=== PATIENT | male | born 1985 | race Caucasian/White ===

== ENCOUNTER → 2019-03-12 15:18 | Outpatient (CLI) | payer BC, SELFPAY ==
--- NOTE | 2019-03-12 15:32 | XR_ITS ---
XR chest 2V HISTORY: ITS.REASON: cough ORDERING PHYSICIAN: Antonio Pagan APRN PATIENT AGE: 33 years COMPARISON: 09/28/2018 FINDINGS: The cardiomediastinal silhouette and pulmonary vascularity are within normal limits. The lungs are clear without infiltrates, suspicious nodules, or pleural effusions. Surgical clips are present along the lower chest anteriorly No acute bony abnormalities. IMPRESSION: No change with no acute finding
[2019-03-12 16:24] LABS: Basophils % 0.3 % (0.1-2.0); Eosinophils # 0.2 K/mm3 (0.0-0.4); Eosinophils % 2.4 % (0.1-12.0); Hematocrit 43.8 % (42.0-52.0); Hemoglobin 15.2 g/dL (14.1-18.0); Lymphocytes # 1.7 K/mm3 (0.7-4.5); Lymphocytes % 25.2 % (10-50); Mean Corpuscular HGB Conc 34.8 g/dL (31.8-35.4); Mean Corpuscular Hemoglobin 31.4 pg (27.0-31.2); Mean Corpuscular Volume 90.2 fl (80-94); Mean Platelet Volume 8.1 fl (7.4-10.4); Monocytes # 0.3 K/mm3 (0.1-1.0); Monocytes % 4.7 % (1.7-9.3); Neutrophils # 4.6 K/mm3 (1.8-7.8); Neutrophils % 67.4 % (37.0-80.0); Platelet Count 196 K/mm3 (142-424); Red Blood Count 4.86 M/mm3 (4.60-6.20); White Blood Count 6.8 K/mm3 (4.8-10.8)
[2019-03-12 16:28] LABS: Activated Partial Thrombo Time 26.2 seconds (23.6-34.0); INR 1.01 (0.9-1.1); Prothrombin Time 10.5 seconds (9.4-11.8)
[2019-03-12 17:45] LABS: Alanine Aminotransferase 95 U/L (12-78); Albumin Level 4.2 gm/dL (3.4-5.0); Albumin/Globulin Ratio 1.1 (1.1-1.8); Alkaline Phosphatase 93 U/L (46-116); Anion Gap 12.8 mEq/L (5-15); Aspartate Amino Transferase 38 U/L (15-37); Bilirubin,Total 0.5 mg/dL (0.2-1.0); Blood Urea Nitrogen 15 mg/dL (7-18); Calcium 8.8 mg/dL (8.5-10.1); Carbon Dioxide 27 mmol/L (21.0-32.0); Chloride 104 mmol/L (98-107); Creatinine,Serum 1.05 mg/dL (0.70-1.30); Estimated Glomerular Filt Rate 80 ml/min (>60); GFR (African American) 97 ML/MIN (>60); Globulin 3.7 gm/dl (1.3-3.2); Glucose 99 mg/dL (74-106); Potassium 3.8 mmoL/L (3.5-5.1); Sodium 140 mmol/L (136-145); T4 (Thyroxine) 8.4 ug/dl (4.7-13.3); Thyroid Stimulating Hormone 1.34 uIU/ml (0.358-3.740); Total Protein,Serum 7.9 gm/dL (6.4-8.2)
[2019-03-15 07:47] LABS: HIV Screen 4th Generation wRfx Non Reactive (Non Reactive)
[2019-03-16 05:08] LABS: Hep A Ab, IgM Negative (Negative); Hepatitis B Core Antibody IgM Negative (Negative)
[2019-03-16 06:21] LABS: Hepatitis B Surface Antigen Positive (Negative); Hepatitis C Antibody >11.0 s/co ratio (0.0-0.9)
[2019-03-18 12:17] LABS: HCV Genotype Charge YES; Hepatitis C Genotype 3 (.)
== END ==
PROVIDERS: Visit Provider Nurse Practitioner Family
DX: R05 Cough (principal); R13.10 Dysphagia, unspecified; Z78.9 Other specified health status
CPT/HCPCS: 36415; 71046; 80053; 80074; 84436; 84443; 85025; 85610; 85730; 86703; 87522; 87902; G0432

== ENCOUNTER → 2019-03-17 14:12 | Outpatient (CLI) | payer BC, SELFPAY | PROVIDERS: PCP Physician Assistant; Visit Provider Nurse Practitioner Family | DX: R05 Cough (principal); J45.909 Unspecified asthma, uncomplicated; Z72.0 Tobacco use | CPT/HCPCS: 94060 ==

== ENCOUNTER → 2019-04-29 11:53 | Outpatient (CLI) | payer BC, SELFPAY ==
--- NOTE | 2019-04-29 12:14 | XR_ITS ---
XR chest 2V HISTORY: ITS.REASON: pain with insp ORDERING PHYSICIAN: Silvestre Arana MD PATIENT AGE: 34 years COMPARISON: 03/12/2019. FINDINGS: The cardiomediastinal silhouette and pulmonary vascularity are within normal limits. The lungs are clear without infiltrates, suspicious nodules, or pleural effusions. Again seen are the small metal clips overlying the inferior left hemithorax area. These could be related to extrathoracic soft tissues although correlate with history and clinical exam. No acute bony abnormalities. IMPRESSION: No change and no definite acute process.
== END ==
PROVIDERS: PCP Emergency Medicine; Visit Provider Emergency Medicine
DX: R07.1 Chest pain on breathing (principal)
CPT/HCPCS: 71046

== ENCOUNTER → 2019-06-21 09:34 | Outpatient (CLI) | payer BC, SELFPAY ==
[2019-06-21 10:09] LABS: Basophils % 0.5 % (0.1-2.0); Eosinophils # 0.1 K/mm3 (0.0-0.4); Eosinophils % 1.1 % (0.1-12.0); Hemoglobin 15.9 g/dL (14.1-18.0); Lymphocytes # 1.4 K/mm3 (0.7-4.5); Lymphocytes % 22.6 % (10-50); Mean Corpuscular HGB Conc 33.9 g/dL (31.8-35.4); Mean Corpuscular Hemoglobin 30.8 pg (27.0-31.2); Mean Corpuscular Volume 90.9 fl (80-94); Mean Platelet Volume 8.2 fl (7.4-10.4); Monocytes # 0.3 K/mm3 (0.1-1.0); Monocytes % 5.2 % (1.7-9.3); Neutrophils # 4.3 K/mm3 (1.8-7.8); Neutrophils % 70.6 % (37.0-80.0); Platelet Count 199 K/mm3 (142-424); Red Blood Count 5.18 M/mm3 (4.60-6.20); Red Cell Distribution Width 13.2 % (11.5-17.5); White Blood Count 6.1 K/mm3 (4.8-10.8)
[2019-06-21 13:46] LABS: Alanine Aminotransferase 65 U/L (12-78); Albumin Level 4.1 gm/dL (3.4-5.0); Albumin/Globulin Ratio 1.2 (1.1-1.8); Alkaline Phosphatase 85 U/L (46-116); Anion Gap 15.6 mEq/L (5-15); Aspartate Amino Transferase 32 U/L (15-37); Bilirubin,Total 0.6 mg/dL (0.2-1.0); Blood Urea Nitrogen 10 mg/dL (7-18); Calcium 9.4 mg/dL (8.5-10.1); Carbon Dioxide 27 mmol/L (21.0-32.0); Chloride 107 mmol/L (98-107); Creatinine,Serum 1.11 mg/dL (0.70-1.30); Estimated Glomerular Filt Rate 75 ml/min (>60); GFR (African American) 91 ML/MIN (>60); Globulin 3.5 gm/dl (1.3-3.2); Glucose 87 mg/dL (74-106); Potassium 4.6 mmoL/L (3.5-5.1); Sodium 145 mmol/L (136-145); Total Protein,Serum 7.6 gm/dL (6.4-8.2)
== END ==
PROVIDERS: Visit Provider Nurse Practitioner Family
DX: B18.2 Chronic viral hepatitis C (principal); Z79.899 Other long term (current) drug therapy
CPT/HCPCS: 36415; 80053; 85025; 87522

== ENCOUNTER → 2019-07-13 10:27 | Outpatient (POV) | payer BC, SELFPAY ==
[2019-07-13 12:49] LABS: Basophils % 0.4 % (0.1-2.0); Eosinophils # 0.1 K/mm3 (0.0-0.4); Eosinophils % 2.3 % (0.1-12.0); Hematocrit 46.3 % (42.0-52.0); Hemoglobin 16.2 g/dL (14.1-18.0); Lymphocytes # 1.5 K/mm3 (0.7-4.5); Lymphocytes % 25.2 % (10-50); Mean Corpuscular HGB Conc 34.9 g/dL (31.8-35.4); Mean Corpuscular Hemoglobin 31.2 pg (27.0-31.2); Mean Corpuscular Volume 89.4 fl (80-94); Mean Platelet Volume 7.6 fl (7.4-10.4); Monocytes # 0.4 K/mm3 (0.1-1.0); Monocytes % 6.8 % (1.7-9.3); Neutrophils # 3.9 K/mm3 (1.8-7.8); Neutrophils % 65.3 % (37.0-80.0); Platelet Count 190 K/mm3 (142-424); Red Blood Count 5.18 M/mm3 (4.60-6.20); Red Cell Distribution Width 12.9 % (11.5-17.5)
[2019-07-16 06:28] LABS: Immunoglobulin E, Total 17 IU/mL (6-495)
== END ==
PROVIDERS: Nurse Practitioner Family; Visit Provider Internal Medicine
DX: J45.40 Moderate persistent asthma, uncomplicated (principal); R06.02 Shortness of breath
CPT/HCPCS: 36415; 82785; 85025; 86003

== ENCOUNTER → 2019-07-21 08:43 | Outpatient (CLI) | payer BC, SELFPAY ==
--- NOTE | 2019-07-21 08:52 | FL_ITS ---
PROCEDURE: FL BARIUM SWALLOW CLINICAL INDICATION: DYSPHAGIA COMPARISON: No exams were available for comparison TECHNIQUE: In the upright position the patient was observed to swallow barium in both the AP and lateral view. The cervical esophagus was examined under fluoroscopy with images obtained. The patient was then placed prone in the right anterior oblique position and was observed to swallow barium with Valsalva technique . FLUOROSCOPY TIME: 54 seconds FINDINGS: There was no evidence of aspiration. There was normal peristalsis. No filling defects or mucosal abnormalities. No masses or strictures. No hiatal hernia parent IMPRESSION: Negative barium swallow. Dictated by: Jose Arenas MD 07/21/2019 10:43 Electronically signed by Jose Arenas MD in [place] 07/23/2019 12:42
== END ==
PROVIDERS: PCP Emergency Medicine; Visit Provider Internal Medicine
DX: R13.10 Dysphagia, unspecified (principal)
CPT/HCPCS: 74220

== ENCOUNTER → 2019-08-03 11:01 | Outpatient (CLI) | payer BC, SELFPAY ==
[2019-08-03 11:25] LABS: Basophils % 0.5 % (0.1-2.0); Eosinophils # 0.1 K/mm3 (0.0-0.4); Eosinophils % 1.9 % (0.1-12.0); Hematocrit 47.5 % (42.0-52.0); Hemoglobin 15.4 g/dL (14.1-18.0); Lymphocytes # 1.7 K/mm3 (0.7-4.5); Lymphocytes % 23.6 % (10-50); Mean Corpuscular HGB Conc 32.3 g/dL (31.8-35.4); Mean Corpuscular Hemoglobin 29.6 pg (27.0-31.2); Mean Corpuscular Volume 91.4 fl (80-94); Monocytes # 0.5 K/mm3 (0.1-1.0); Monocytes % 6.3 % (1.7-9.3); Neutrophils # 4.9 K/mm3 (1.8-7.8); Neutrophils % 67.7 % (37.0-80.0); Platelet Count 215 K/mm3 (142-424); Red Cell Distribution Width 13.8 % (11.5-17.5); White Blood Count 7.2 K/mm3 (4.8-10.8)
[2019-08-03 13:24] LABS: Alanine Aminotransferase 59 U/L (12-78); Albumin Level 4.1 gm/dL (3.4-5.0); Albumin/Globulin Ratio 1.1 (1.1-1.8); Alkaline Phosphatase 88 U/L (46-116); Anion Gap 12.2 mEq/L (5-15); Aspartate Amino Transferase 31 U/L (15-37); Bilirubin,Total 0.7 mg/dL (0.2-1.0); Blood Urea Nitrogen 10 mg/dL (7-18); Calcium 9.2 mg/dL (8.5-10.1); Carbon Dioxide 28 mmol/L (21.0-32.0); Chloride 104 mmol/L (98-107); Creatinine,Serum 1.11 mg/dL (0.70-1.30); Estimated Glomerular Filt Rate 75 ml/min (>60); GFR (African American) 91 ML/MIN (>60); Globulin 3.6 gm/dl (1.3-3.2); Glucose 92 mg/dL (74-106); Potassium 4.2 mmoL/L (3.5-5.1); Sodium 140 mmol/L (136-145); Total Protein,Serum 7.7 gm/dL (6.4-8.2)
[2019-08-07 08:13] LABS: D001-IgE D pteronyssinus <0.10 kU/L (Class 0); D002-IgE D farinae <0.10 kU/L (Class 0); E001-IgE Cat Dander <0.10 kU/L (Class 0); E005-IgE Dog Dander <0.10 kU/L (Class 0); G002-IgE Bermuda Grass <0.10 kU/L (Class 0); G006-IgE Timothy Grass <0.10 kU/L (Class 0); I006-IgE Cockroach, German <0.10 kU/L (Class 0); Immunoglobulin E, Total 15 IU/mL (6-495); M001-IgE Penicillium chrysogen <0.10 kU/L (Class 0); M002-IgE Cladosporium herbarum <0.10 kU/L (Class 0); M003-IgE Aspergillus fumigatus <0.10 kU/L (Class 0); M006-IgE Alternaria alternata <0.10 kU/L (Class 0); T001-IgE Maple/Box Elder <0.10 kU/L (Class 0); T003-IgE Common Silver Birch <0.10 kU/L (Class 0); T006-IgE Cedar, Mountain <0.10 kU/L (Class 0); T007-IgE Oak, White <0.10 kU/L (Class 0); T008-IgE Elm, American <0.10 kU/L (Class 0); T010-IgE Walnut <0.10 kU/L (Class 0); T011-IgE Maple Leaf Sycamore <0.10 kU/L (Class 0); T014-IgE Cottonwood <0.10 kU/L (Class 0); T015-IgE Ash, White <0.10 kU/L (Class 0); T022-IgE Pecan, Hickory <0.10 kU/L (Class 0); T070-IgE White Mulberry <0.10 kU/L (Class 0); W001-IgE Ragweed, Short <0.10 kU/L (Class 0); W011-IgE Thistle, Russian <0.10 kU/L (Class 0); W014-IgE Pigweed, Common <0.10 kU/L (Class 0); W018-IgE Sheep Sorrel <0.10 kU/L (Class 0)
[2019-08-07 12:26] LABS: E072-IgE Mouse Urine <0.10 kU/L (Class 0)
== END ==
PROVIDERS: Nurse Practitioner Family; Visit Provider Nurse Practitioner Family
DX: B18.2 Chronic viral hepatitis C (principal); J45.40 Moderate persistent asthma, uncomplicated; R06.02 Shortness of breath; Z79.899 Other long term (current) drug therapy
CPT/HCPCS: 36415; 80053; 82785; 85025; 86003

== ENCOUNTER → 2019-09-01 10:11 | Outpatient (CLI) | payer BC, SELFPAY ==
[2019-09-01 10:30] LABS: Basophils % 0.5 % (0.1-2.0); Eosinophils # 0.1 K/mm3 (0.0-0.4); Eosinophils % 1.5 % (0.1-12.0); Hematocrit 49.3 % (42.0-52.0); Hemoglobin 16.7 g/dL (14.1-18.0); Lymphocytes # 1.2 K/mm3 (0.7-4.5); Lymphocytes % 17.6 % (10-50); Mean Corpuscular HGB Conc 33.8 g/dL (31.8-35.4); Mean Corpuscular Hemoglobin 31.1 pg (27.0-31.2); Mean Platelet Volume 8.4 fl (7.4-10.4); Monocytes # 0.4 K/mm3 (0.1-1.0); Monocytes % 6.2 % (1.7-9.3); Neutrophils % 74.2 % (37.0-80.0); Platelet Count 210 K/mm3 (142-424); Red Blood Count 5.36 M/mm3 (4.60-6.20); White Blood Count 6.8 K/mm3 (4.8-10.8)
[2019-09-01 10:44] LABS: INR 0.99 (0.9-1.1); Prothrombin Time 10.3 seconds (9.4-11.8)
[2019-09-01 11:37] LABS: Alanine Aminotransferase 88 U/L (12-78); Albumin Level 4.2 gm/dL (3.4-5.0); Albumin/Globulin Ratio 1.1 (1.1-1.8); Alkaline Phosphatase 90 U/L (46-116); Anion Gap 12.4 mEq/L (5-15); Aspartate Amino Transferase 48 U/L (15-37); Bilirubin,Total 0.6 mg/dL (0.2-1.0); Blood Urea Nitrogen 18 mg/dL (7-18); Calcium 9.5 mg/dL (8.5-10.1); Carbon Dioxide 26 mmol/L (21.0-32.0); Chloride 104 mmol/L (98-107); Creatinine,Serum 1.02 mg/dL (0.70-1.30); Estimated Glomerular Filt Rate 83 ml/min (>60); GFR (African American) 100 ML/MIN (>60); Globulin 3.9 gm/dl (1.3-3.2); Glucose 81 mg/dL (74-106); Potassium 4.4 mmoL/L (3.5-5.1); Sodium 138 mmol/L (136-145); Total Protein,Serum 8.1 gm/dL (6.4-8.2)
== END ==
PROVIDERS: Visit Provider Nurse Practitioner Family
DX: B18.2 Chronic viral hepatitis C (principal); Z79.899 Other long term (current) drug therapy
CPT/HCPCS: 36415; 80053; 85025; 85610; 87522

== ENCOUNTER → 2019-09-28 10:51 | Outpatient (CLI) | payer BC, SELFPAY ==
[2019-09-28 11:23] LABS: Basophils # 0.1 K/mm3 (0-0.2); Basophils % 0.8 % (0.1-2.0); Eosinophils # 0.2 K/mm3 (0.0-0.4); Eosinophils % 2.7 % (0.1-12.0); Hemoglobin 15.4 g/dL (14.1-18.0); Lymphocytes % 32.3 % (10-50); Mean Corpuscular HGB Conc 34.1 g/dL (31.8-35.4); Mean Corpuscular Hemoglobin 31.2 pg (27.0-31.2); Mean Corpuscular Volume 91.3 fl (80-94); Mean Platelet Volume 8.5 fl (7.4-10.4); Monocytes # 0.4 K/mm3 (0.1-1.0); Monocytes % 5.7 % (1.7-9.3); Neutrophils # 3.7 K/mm3 (1.8-7.8); Neutrophils % 58.6 % (37.0-80.0); Platelet Count 185 K/mm3 (142-424); Red Blood Count 4.93 M/mm3 (4.60-6.20); Red Cell Distribution Width 13.1 % (11.5-17.5); White Blood Count 6.2 K/mm3 (4.8-10.8)
[2019-09-28 14:00] LABS: Alanine Aminotransferase 82 U/L (12-78); Albumin Level 3.9 gm/dL (3.4-5.0); Albumin/Globulin Ratio 1.1 (1.1-1.8); Alkaline Phosphatase 79 U/L (46-116); Anion Gap 12.2 mEq/L (5-15); Aspartate Amino Transferase 47 U/L (15-37); Bilirubin,Total 0.6 mg/dL (0.2-1.0); Blood Urea Nitrogen 18 mg/dL (7-18); Calcium 8.5 mg/dL (8.5-10.1); Carbon Dioxide 25 mmol/L (21.0-32.0); Chloride 103 mmol/L (98-107); Creatinine,Serum 0.96 mg/dL (0.70-1.30); Estimated Glomerular Filt Rate 89 ml/min (>60); GFR (African American) 107 ML/MIN (>60); Globulin 3.5 gm/dl (1.3-3.2); Glucose 80 mg/dL (74-106); Potassium 4.2 mmoL/L (3.5-5.1); Sodium 136 mmol/L (136-145); Total Protein,Serum 7.4 gm/dL (6.4-8.2)
== END ==
PROVIDERS: Visit Provider Nurse Practitioner Family
DX: B18.2 Chronic viral hepatitis C (principal); Z79.899 Other long term (current) drug therapy
CPT/HCPCS: 36415; 80053; 85025; 87522

== ENCOUNTER → 2019-11-24 09:50 | Outpatient (CLI) | payer BC, SELFPAY ==
[2019-11-24 10:26] LABS: Basophils % 0.6 % (0.1-2.0); Eosinophils # 0.2 K/mm3 (0.0-0.4); Eosinophils % 2.8 % (0.1-12.0); Hematocrit 47.2 % (42.0-52.0); Lymphocytes # 1.9 K/mm3 (0.7-4.5); Lymphocytes % 25.2 % (10-50); Mean Corpuscular HGB Conc 33.9 g/dL (31.8-35.4); Mean Corpuscular Hemoglobin 30.3 pg (27.0-31.2); Mean Corpuscular Volume 89.2 fl (80-94); Mean Platelet Volume 7.9 fl (7.4-10.4); Monocytes # 0.4 K/mm3 (0.1-1.0); Monocytes % 5.2 % (1.7-9.3); Neutrophils # 4.9 K/mm3 (1.8-7.8); Neutrophils % 66.3 % (37.0-80.0); Platelet Count 210 K/mm3 (142-424); Red Blood Count 5.29 M/mm3 (4.60-6.20); Red Cell Distribution Width 12.8 % (11.5-17.5); White Blood Count 7.4 K/mm3 (4.8-10.8)
[2019-11-24 11:00] LABS: Prothrombin Time 10.4 seconds (9.4-11.8)
[2019-11-24 12:18] LABS: Alanine Aminotransferase 71 U/L (12-78); Albumin/Globulin Ratio 1.2 (1.1-1.8); Alkaline Phosphatase 85 U/L (46-116); Anion Gap 15.2 mEq/L (5-15); Aspartate Amino Transferase 42 U/L (15-37); Bilirubin,Total 0.6 mg/dL (0.2-1.0); Blood Urea Nitrogen 17 mg/dL (7-18); Calcium 8.9 mg/dL (8.5-10.1); Carbon Dioxide 26 mmol/L (21.0-32.0); Chloride 104 mmol/L (98-107); Creatinine,Serum 1.04 mg/dL (0.70-1.30); Estimated Glomerular Filt Rate 81 ml/min (>60); GFR (African American) 98 ML/MIN (>60); Globulin 3.3 gm/dl (1.3-3.2); Glucose 87 mg/dL (74-106); Potassium 4.2 mmoL/L (3.5-5.1); Sodium 141 mmol/L (136-145); Total Protein,Serum 7.3 gm/dL (6.4-8.2)
[2019-11-26 13:30] LABS: Hepatitis B Surface Antigen Confirm. indicated (Negative)
[2019-11-27 09:26] LABS: HBsAg Confirmation Positive (.)
== END ==
PROVIDERS: Visit Provider Nurse Practitioner Family
DX: B18.2 Chronic viral hepatitis C (principal); B19.10 Unspecified viral hepatitis B without hepatic coma; Z79.899 Other long term (current) drug therapy
CPT/HCPCS: 36415; 80053; 85025; 85610; 87340; 87522

== ENCOUNTER → 2020-02-10 11:48 | Outpatient (CLI) | payer BC, SELFPAY ==
[2020-02-10 12:20] LABS: Basophils # 0.1 K/mm3 (0-0.2); Basophils % 0.8 % (0.1-2.0); Eosinophils # 0.2 K/mm3 (0.0-0.4); Eosinophils % 3.2 % (0.1-12.0); Hematocrit 47.3 % (42.0-52.0); Hemoglobin 16.4 g/dL (14.1-18.0); Lymphocytes # 1.9 K/mm3 (0.7-4.5); Lymphocytes % 25.2 % (10-50); Mean Corpuscular HGB Conc 34.7 g/dL (31.8-35.4); Mean Corpuscular Hemoglobin 30.8 pg (27.0-31.2); Mean Corpuscular Volume 88.7 fl (80-94); Monocytes # 0.4 K/mm3 (0.1-1.0); Monocytes % 5.7 % (1.7-9.3); Neutrophils % 65.2 % (37.0-80.0); Platelet Count 186 K/mm3 (142-424); Red Blood Count 5.33 M/mm3 (4.60-6.20); Red Cell Distribution Width 12.9 % (11.5-17.5); White Blood Count 7.6 K/mm3 (4.8-10.8)
[2020-02-10 12:42] LABS: Prothrombin Time 10.4 seconds (9.4-11.8)
[2020-02-10 14:28] LABS: Alanine Aminotransferase 80 U/L (12-78); Albumin Level 4.6 g/dl (3.5-5.0); Albumin/Globulin Ratio 1.4 (1.1-1.8); Alkaline Phosphatase 75 U/L (38-126); Anion Gap 10.4 mEq/L (5-15); Aspartate Amino Transferase 48 U/L (17-59); Bilirubin,Total 0.4 mg/dl (0.2-1.3); Blood Urea Nitrogen 15 mg/dl (9-20); Calcium 10.1 mg/dl (8.4-10.2); Carbon Dioxide 28 mmol/L (22.0-30.0); Chloride 102 mmol/L (98-107); Estimated Glomerular Filt Rate 95 ml/min (>60); GFR (African American) 116 ML/MIN (>60); Globulin 3.2 g/dL (1.3-3.2); Glucose 87 mg/dl (74-100); Potassium 4.4 mmoL/L (3.5-5.1); Sodium 136 mmol/L (136-145); Total Protein,Serum 7.8 g/dl (6.3-8.2)
[2020-02-11 05:16] LABS: HIV Screen 4th Generation wRfx Non Reactive (Non Reactive); Hep Be Ag Positive (Negative)
[2020-02-11 11:57] LABS: Hep B Core Ab, Total Positive (Negative); Hepatitis B Surf Ab Quant <3.1 mIU/mL (Immunity>9.9); Hepatitis B Surface Antigen Positive (Negative)
[2020-02-11 14:22] LABS: Hepatitis Be Antibody Negative (Negative)
[2020-02-12 12:27] LABS: HBV IU/mL See Final Results IU/mL (.)
[2020-02-12 14:37] LABS: log10 HBV IU/mL 8.892 (.)
== END ==
PROVIDERS: Visit Provider Nurse Practitioner Family
DX: B18.2 Chronic viral hepatitis C (principal); B19.10 Unspecified viral hepatitis B without hepatic coma; Z79.899 Other long term (current) drug therapy
CPT/HCPCS: 36415; 80053; 85025; 85610; 86703; 86704; 86706; 86707; 87340; 87350; 87517; 87522; G0432

== ENCOUNTER → 2020-03-28 15:17 | Outpatient (CLI) | payer BC, SELFPAY ==
[2020-03-28 16:31] LABS: Basophils # 0.1 K/mm3 (0-0.2); Basophils % 0.7 % (0.1-2.0); Eosinophils # 0.2 K/mm3 (0.0-0.4); Eosinophils % 2.5 % (0.1-12.0); Hematocrit 46.9 % (42.0-52.0); Hemoglobin 16.6 g/dL (14.1-18.0); Lymphocytes # 1.9 K/mm3 (0.7-4.5); Lymphocytes % 24.8 % (10-50); Mean Corpuscular HGB Conc 35.3 g/dL (31.8-35.4); Mean Corpuscular Volume 90.6 fl (80-94); Mean Platelet Volume 9.3 fl (7.4-10.4); Monocytes # 0.5 K/mm3 (0.1-1.0); Platelet Count 193 K/mm3 (142-424); Red Blood Count 5.18 M/mm3 (4.60-6.20); Red Cell Distribution Width 13.3 % (11.5-17.5); White Blood Count 7.5 K/mm3 (4.8-10.8)
[2020-03-28 17:06] LABS: Chloride 102 mmol/L (98-107); Sodium 138 mmol/L (136-145)
[2020-03-28 17:07] LABS: Potassium 4.5 mmoL/L (3.5-5.1)
[2020-03-28 17:09] LABS: Alanine Aminotransferase 83 U/L (12-78); Alkaline Phosphatase 85 U/L (38-126); Anion Gap 11.5 mEq/L (5-15); Aspartate Amino Transferase 50 U/L (17-59); Bilirubin,Direct 0.3 mg/dl (0.0-0.4); Bilirubin,Indirect 0.2 mg/dL (0.0-0.9); Bilirubin,Total 0.5 mg/dl (0.2-1.3); Bilirubin,Unconjugated 0.2 mg/dL (0.0-1.1); Blood Urea Nitrogen 15 mg/dl (9-20); Calcium 9.9 mg/dl (8.4-10.2); Carbon Dioxide 29 mmol/L (22.0-30.0); Estimated Glomerular Filt Rate 85 ml/min (>60); GFR (African American) 102 ML/MIN (>60); Glucose 87 mg/dl (74-100)
[2020-03-28 17:10] LABS: Albumin Level 4.5 g/dl (3.5-5.0); Albumin/Globulin Ratio 1.4 (1.1-1.8); Globulin 3.3 g/dL (1.3-3.2); Total Protein,Serum 7.8 g/dl (6.3-8.2)
== END ==
PROVIDERS: Visit Provider Nurse Practitioner Family
DX: I10 Essential (primary) hypertension (principal)
CPT/HCPCS: 80053; 80076; 85025

== ENCOUNTER → 2020-05-23 11:42 | Outpatient (CLI) | payer BC, SELFPAY ==
--- NOTE | 2020-05-23 11:53 | XR_ITS ---
PROCEDURE: XR KUB CLINICAL INDICATION: DIARRHEA COMPARISON: CT ABD/PELVIS W/O from 03/29/2015 FINDINGS: The bowel gas pattern is nonspecific. No evidence of intestinal obstruction. There is a rounded calcific density in the right upper quadrant measuring 8 mm. This is just lateral to the T12-L1 interspace. There is mild amount of retained colonic feces in the right colon. Other findings:No acute bony anomalies IMPRESSION: 8 mm right upper quadrant calcification which could be due to a gallstone or renal stone otherwise negative. This may be due to a partially calcified lymph node. This was present on a previous CT scan of 03/29/2015 and is not significantly changed. Dictated by: Jose Arenas MD 05/23/2020 13:04 Electronically signed by Jose Arenas MD in [place] 05/23/2020 13:04
[2020-05-23 13:49] LABS: Basophils % 0.5 % (0.1-2.0); Eosinophils # 0.2 K/mm3 (0.0-0.4); Eosinophils % 2.4 % (0.1-12.0); Hematocrit 43.8 % (42.0-52.0); Hemoglobin 15.3 g/dL (14.1-18.0); Lymphocytes # 1.6 K/mm3 (0.7-4.5); Lymphocytes % 20.7 % (10-50); Mean Corpuscular Hemoglobin 31.4 pg (27.0-31.2); Mean Corpuscular Volume 89.7 fl (80-94); Mean Platelet Volume 8.1 fl (7.4-10.4); Monocytes # 0.4 K/mm3 (0.1-1.0); Monocytes % 5.3 % (1.7-9.3); Neutrophils # 5.6 K/mm3 (1.8-7.8); Neutrophils % 71.1 % (37.0-80.0); Platelet Count 179 K/mm3 (142-424); Red Blood Count 4.88 M/mm3 (4.60-6.20); Red Cell Distribution Width 13.3 % (11.5-17.5); White Blood Count 7.9 K/mm3 (4.8-10.8)
[2020-05-23 14:17] LABS: INR 1.02 (0.9-1.1); Prothrombin Time 10.5 seconds (9.4-11.8)
[2020-05-23 14:18] LABS: Alanine Aminotransferase 90 U/L (12-78); Albumin Level 4.3 g/dl (3.5-5.0); Albumin/Globulin Ratio 1.3 (1.1-1.8); Alkaline Phosphatase 88 U/L (38-126); Aspartate Amino Transferase 47 U/L (17-59); Bilirubin,Total 0.5 mg/dl (0.2-1.3); Blood Urea Nitrogen 13 mg/dl (9-20); Calcium 9.6 mg/dl (8.4-10.2); Carbon Dioxide 29 mmol/L (22.0-30.0); Chloride 105 mmol/L (98-107); Estimated Glomerular Filt Rate 95 ml/min (>60); GFR (African American) 115 ML/MIN (>60); Globulin 3.2 g/dL (1.3-3.2); Glucose 104 mg/dl (74-100); Sodium 142 mmol/L (136-145); Total Protein,Serum 7.5 g/dl (6.3-8.2)
[2020-05-23 14:47] LABS: Thyroid Stimulating Hormone 1.86 uIU/mL (0.465-4.68)
[2020-05-24 11:29] LABS: Hep Be Ag Positive (Negative)
[2020-05-24 13:31] LABS: Hep B Core Ab, Total Positive (Negative); Hepatitis B Surf Ab Quant <3.1 mIU/mL (Immunity>9.9); Hepatitis B Surface Antigen Positive (Negative)
[2020-05-25 09:38] LABS: Hepatitis Be Antibody Negative (Negative); Immunoglobulin A, Qn 189 mg/dL (90-386)
[2020-05-25 09:39] LABS: Tissue Transglutaminase IgA Ab <2 U/mL (0-3)
[2020-05-26 10:18] LABS: Strongyloides IgG Antibody Negative (Negative)
[2020-05-27 06:13] LABS: HBV IU/mL 4640 IU/mL (.)
[2020-05-27 08:51] LABS: log10 HBV IU/mL 3.667 (.)
== END ==
LOC: LAB 11:50
PROVIDERS: PCP Emergency Medicine; Visit Provider Nurse Practitioner Family
DX: B19.10 Unspecified viral hepatitis B without hepatic coma (principal); R19.7 Diarrhea, unspecified
CPT/HCPCS: 36415; 74018; 80053; 82784; 83516; 84443; 85025; 85610; 86682; 86704; 86706; 86707; 87340; 87350; 87517

== ENCOUNTER → 2020-10-03 15:05 | Outpatient (CLI) | payer BC, SELFPAY ==
[2020-10-03 15:53] LABS: Basophils % 0.5 % (0.1-2.0); Eosinophils # 0.3 K/mm3 (0.0-0.4); Eosinophils % 3.2 % (0.1-12.0); Hematocrit 48.4 % (42.0-52.0); Hemoglobin 17.2 g/dL (14.1-18.0); Lymphocytes # 1.7 K/mm3 (0.7-4.5); Lymphocytes % 20.3 % (10-50); Mean Corpuscular HGB Conc 35.6 g/dL (31.8-35.4); Mean Corpuscular Hemoglobin 31.6 pg (27.0-31.2); Mean Corpuscular Volume 88.7 fl (80-94); Mean Platelet Volume 9.3 fl (7.4-10.4); Monocytes # 0.5 K/mm3 (0.1-1.0); Monocytes % 6.3 % (1.7-9.3); Neutrophils # 5.7 K/mm3 (1.8-7.8); Neutrophils % 69.7 % (37.0-80.0); Platelet Count 203 K/mm3 (142-424); Red Blood Count 5.45 M/mm3 (4.60-6.20); Red Cell Distribution Width 13.3 % (11.5-17.5); White Blood Count 8.2 K/mm3 (4.8-10.8)
[2020-10-03 16:05] LABS: INR 0.99 (0.9-1.1)
[2020-10-03 17:44] LABS: Alanine Aminotransferase 86 U/L (12-78); Albumin Level 4.7 g/dl (3.5-5.0); Albumin/Globulin Ratio 1.4 (1.1-1.8); Alkaline Phosphatase 93 U/L (38-126); Anion Gap 13.3 mEq/L (5-15); Aspartate Amino Transferase 48 U/L (17-59); Bilirubin,Total 0.6 mg/dl (0.2-1.3); Blood Urea Nitrogen 14 mg/dl (9-20); Calcium 9.7 mg/dl (8.4-10.2); Carbon Dioxide 25 mmol/L (22.0-30.0); Chloride 103 mmol/L (98-107); Estimated Glomerular Filt Rate 84 ml/min (>60); GFR (African American) 102 ML/MIN (>60); Globulin 3.4 g/dL (1.3-3.2); Glucose 91 mg/dl (74-100); Potassium 4.3 mmoL/L (3.5-5.1); Sodium 137 mmol/L (136-145); Total Protein,Serum 8.1 g/dl (6.3-8.2)
[2020-10-03 18:09] LABS: 25-OH Vitamin D, Total 37.7 ng/mL (30-100)
[2020-10-05 09:01] LABS: Hep B Core Ab, Total Positive (Negative); Hep Be Ag Positive (Negative)
[2020-10-05 12:14] LABS: Hep B Surface Ab, Qual Non Reactive (.); Hepatitis B Core Antibody IgM Negative (Negative); Hepatitis B Surface Antigen Positive (Negative)
[2020-10-06 05:13] LABS: Hepatitis Be Antibody Negative (Negative)
[2020-10-07 12:53] LABS: Vitamin A 48.8 ug/dL (18.9-57.3)
[2020-10-08 12:40] LABS: Vitamin E Alpha Tocopherol 8.1 mg/L (5.9-19.4)
[2020-10-08 16:37] LABS: HBV IU/mL 270 IU/mL (.)
[2020-10-09 10:29] LABS: Vitamin E Gamma Tocopherol 1.6 mg/L (0.7-4.9); log10 HBV as IU/mL 2.431 (.)
[2020-10-16 08:43] LABS: Vitamin K1 0.28 ng/mL (0.13-1.88)
== END ==
PROVIDERS: Nurse Practitioner Family
DX: B19.10 Unspecified viral hepatitis B without hepatic coma (principal); K21.9 Gastro-esophageal reflux disease without esophagitis
CPT/HCPCS: 36415; 80053; 82306; 84446; 84590; 84597; 85025; 85610; 86704; 86706; 86707; 87340; 87350; 87517

== ENCOUNTER 2020-11-19 18:36 | Emergency (ER) | payer BC, SELFPAY ==
[2020-11-19 18:40] VITALS: BP 133/81; PULSE 86; RESP 14; TEMP 36.4; O2SAT 99; BMI 31.6
--- NOTE | 2020-11-19 19:12 | XR_ITS ---
PROCEDURE: XR CHEST PORTABLE Referring Doctor: Chandler Cleveland Patient Age:35Y CLINICAL HISTORY: soa History of asthma increased asthma symptoms past 2 days short of breath wheezing coughing mild lays COMPARISON: CR CXR CHEST(2 VIEWS-NOT PORTABLE) from 03/21/2014 CR CXR CHEST(2 VIEWS-NOT PORTABLE) from 11/11/2014 CR CXR2V XR chest 2V from 09/28/2018 FINDINGS: AP portable upright CXR Slightly less optimal inspiration today but no significant appearing change since previous studies. There may be some minor linear atelectasis towards the right lung base but I see no convincing focal infiltrate. When technique is considered lung jones appear similar and stable to previous studies. Heart, garry and mediastinal structures appear satisfactory and stable. Cardiomediastinal silhouette and pulmonary vascularity are within normal limits. The lungs are clear without infiltrates, suspicious nodules, or pleural effusions. No acute bony abnormalities. IMPRESSION: Nothing definitely acute . Question some minimal linear atelectasis towards right lung base but no discrete focal pneumonia evident Dictated by: Sarbjit Rondon MD 11/19/2020 22:03 Sarbjit Rondon MD in [place] 11/19/2020 22:03
--- NOTE | 2020-11-19 19:33 | HMH.EDUTC ---
[facility] [place] Clinical Impression: Asthma exacerbation Qualifiers: Asthma severity: unspecified severity Asthma persistence: unspecified Qualified Code(s): J45.901 - Unspecified asthma with (acute) exacerbation Acute bronchitis Qualifiers: Bronchitis organism: unspecified organism Qualified Code(s): J20.9 - Acute bronchitis, unspecified Disposition: Home, Self-Care Condition on Discharge: Good Instructions: DI for Asthma -- Adult, Preventing the Spread of Coronavirus Discharge Instructions Additional Instructions: Drink plenty of fluids. Take tylenol for pain or fever. Take the medications as directed. Follow up with your regular doctor. GO TO THE ER FOR ANY WORSENING SYMPTOMS Don't start the oral steroids until tomorrow, since you had the shot here today. The cough medication (promethazine dm) will make you drowsy, so don't drive or operate heavy machinery after taking it. Prescriptions: Promethazine/Dextromethorphan [Promethazine-Dm Syrup] 5 ml PO Q6HP PRN #240 syrup PRN Reason: Cough Transmission Status: Received by [facility] # methylPREDNISolone [Medrol] 4 mg PO DIRECTED 6 Days #21 tab.ds.pk Transmission Status: Received by [facility] # Azithromycin [Z-Ryan 250mg Tab*] 250 mg PO UD DOSE PK #6 tab Transmission Status: Received by [facility] #[id number] Referrals: Silvestre Arana MD [Primary Care Provider] - Forms: Work/School Release Time of Disposition: 20:03 Medical Decision Making - Medical Records Medical records reviewed: No: I reviewed the patient's medical records. - Brody Inquiry Pt receiving controlled substance: No Vital Signs: 11/19/20 18:40 11/19/20 19:59 Temperature 97.6 F 97.6 F Temperature Source Oral Pulse Rate 86 Pulse Rate [Right Brachial] 86 Respiratory Rate 14 14 Blood Pressure 133/81 Blood Pressure [Right Arm] 133/81 Blood Pressure Mean [Right Arm] 98 Blood Pressure Source [Right Arm] Automatic Cuff Blood Pressure Position [Right Arm] Sitting 02 Sat by Pulse Oximetry 99 Oxygen Delivery Method Room Air Orders (Tests/Meds): ED MEDICATIONS Discontinued Medications Generic Name Dose Route Start Last Admin Trade Name Freq PRN Reason Stop Dose Admin Ceftriaxone Sodium 1 gm 11/19/20 19:33 11/19/20 19:45 Ceftriaxone 1gm Vial IM 11/19/20 19:34 1 gm ONCE ONE Administration Protocol Lidocaine HCl 0 ml 11/19/20 19:33 11/19/20 19:45 Lidocaine 1% 5ml Pf Vial IM 11/19/20 19:34 2.1 ml ONCE ONE Administration Methylprednisolone Sodium Succinate 125 mg 11/19/20 19:33 11/19/20 19:45 Methylprednisolone Sod Succ 125mg Vial IM 11/19/20 19:34 125 mg ONCE ONE Administration ORDERS Category Date Time Status XR chest portable Stat Exams 11/19/20 19:12 Taken Covid-19 Nasal PCR ([facility]) Routine Lab 11/19/20 18:50 Received - Radiology Data #1 Image(s): Chest Image Reviewed: Yes I reviewed the patient's radiology image Preliminary Findings: No Infiltrates [place]en [facility] [place] - General Stated complaint: covid test Time Seen by Provider: 11/19/20 19:33 Mode of Arrival: Ambulatory Source of Information: Patient Limitations: No Limitations Description of Symptoms (Recalled from Triage Doc. by RN): PATIENT REQUESTING COVID TEST. C/O SOA AND COUGH HEENT Symptoms (Recalled from RN notes): No Resp Symptoms (Recalled from RN notes): Yes Skin Symptoms (Recalled from RN notes): No MS Symptoms (Recalled from RN notes): No Functional Status (Recalled from RN notes): WNL - History of Present Illness Provider Complaint: He states that over the past 2 days he has been having more of his asthma symptoms. He has been short of breath and he has had more wheezing than normal. He states that he has also been coughing and feeling bad. He denies fever/chills/body aches. He denies any known covid-19 exposure. - Related Data Previous Rx's Medication Instructions R
[2020-11-19 19:59] VITALS: BP 133/81; PULSE 86; RESP 14; TEMP 36.4; O2SAT 99
--- NOTE | 2020-11-20 10:27 | PC.NURSE ---
PATIENT INFORMED OF POSITIVE COVID RESULTS
== END 2020-11-19 20:05 | disposition home or self-care (01) ==
PROVIDERS: Emergency Provider Nurse Practitioner Family; PCP Emergency Medicine
DX: U07.1 COVID-19 (principal); J20.9 Acute bronchitis, unspecified; J45.901 Unspecified asthma with (acute) exacerbation; F41.9 Anxiety disorder, unspecified; F17.210 Nicotine dependence, cigarettes, uncomplicated; F19.11 Other psychoactive substance abuse, in remission; Z88.2 Allergy status to sulfonamides; Z79.899 Other long term (current) drug therapy
CPT/HCPCS: 71045; 96372; 99202; G0463; U0003

== ENCOUNTER 2020-11-25 03:43 | Emergency (ER) | payer BC, SELFPAY ==
[2020-11-25 03:44] VITALS: BP 149/104; PULSE 87; RESP 22; TEMP 36.5; O2SAT 98; BMI 31.6
--- NOTE | 2020-11-25 04:00 | XR_ITS ---
PROCEDURE: XR CHEST 2V CLINICAL HISTORY: SOA Shortness of air COMPARISON: CR CXR CHEST(2 VIEWS-NOT PORTABLE) from 11/11/2014 CR CXR2V XR chest 2V from 09/28/2018 CR XR CHEST PORTABLE from 11/19/2020 FINDINGS: The cardiomediastinal silhouette and pulmonary vascularity are within normal limits. The lungs are clear without infiltrates, suspicious nodules, or pleural effusions. Surgical clips overlie the left lower hemithorax. No acute bony findings. IMPRESSION: No acute findings. Dictated by: Jose Arenas MD 11/25/2020 07:19 Jose Arenas MD in [place] 11/25/2020 07:19
--- NOTE | 2020-11-25 04:05 | CT_ITS ---
PROCEDURE: CT ANGIO CHEST CLINCIAL INDICATION: SOA Shortness of air COMPARISON: No exams were available for comparison TECHNIQUE: IV Contrast: 70ML Isovue 370 Axial images obtained with sagittal and coronal reformats. All CT scans at the facility use one or more dose reduction, viz: automated exposure control, ma/kV adjustment per patient size (including targeted exams where dose is matched to indication, i.e. head), or iterative reconstruction technique. FINDINGS: HEART AND MEDIASTINAL STRUCTURES: No evidence of pulmonary embolus or aortic aneurysm. No mediastinal or hilar mass. Calcified granuloma is present in the left upper lobe. LUNGS AND PLEURAL SPACES: No lobar consolidation or collapse BONY STRUCTURES: No acute bony abnormalities apparent. UPPER ABDOMEN: Gallstones are present ADDITIONAL FINDINGS: Gynecomastia right greater than left. Left anterior chest subcutaneous clips IMPRESSION: 1. No evidence of pulmonary embolus. 2. No acute finding. 3. Cholelithiasis Dictated by: Jose Arenas MD 11/25/2020 08:00 Jose Arenas MD in [place] 11/25/2020 08:00
[2020-11-25 04:22] LABS: Chloride 102 mmol/L (98-107); Sodium 137 mmol/L (136-145)
[2020-11-25 04:25] LABS: Alanine Aminotransferase 47 U/L (12-78); Albumin Level 4.6 g/dl (3.5-5.0); Albumin/Globulin Ratio 1.1 (1.1-1.8); Alkaline Phosphatase 81 U/L (38-126); Anion Gap 15.3 mEq/L (5-15); Aspartate Amino Transferase 51 U/L (17-59); Blood Urea Nitrogen 21 mg/dl (9-20); Carbon Dioxide 24 mmol/L (22.0-30.0); Creatinine Clearance Estimated 173 mL/min (50-200); Estimated Glomerular Filt Rate 95 ml/min (>60); GFR (African American) 115 ML/MIN (>60); Globulin 4.1 g/dL (1.3-3.2); Total Protein,Serum 8.7 g/dl (6.3-8.2)
[2020-11-25 04:26] LABS: Calcium 9.6 mg/dl (8.4-10.2); Glucose 113 mg/dl (74-100)
[2020-11-25 04:28] LABS: Potassium 4.3 mmoL/L (3.5-5.1)
[2020-11-25 04:29] LABS: C-Reactive Protein 1.4 mg/L (0-4)
[2020-11-25 04:39] LABS: Basophils # 0.1 K/mm3 (0-0.2); Basophils % 0.4 % (0.1-2.0); Eosinophils # 0.1 K/mm3 (0.0-0.4); Eosinophils % 1.1 % (0.1-12.0); Hematocrit 48.6 % (42.0-52.0); Hemoglobin 17.5 g/dL (14.1-18.0); Lymphocytes # 2.4 K/mm3 (0.7-4.5); Lymphocytes % 19.9 % (10-50); Mean Corpuscular HGB Conc 36.1 g/dL (31.8-35.4); Mean Corpuscular Hemoglobin 31.4 pg (27.0-31.2); Mean Platelet Volume 8.6 fl (7.4-10.4); Monocytes # 0.8 K/mm3 (0.1-1.0); Monocytes % 6.5 % (1.7-9.3); Neutrophils # 8.6 K/mm3 (1.8-7.8); Neutrophils % 72.1 % (37.0-80.0); Platelet Count 192 K/mm3 (142-424); Red Blood Count 5.58 M/mm3 (4.60-6.20); Red Cell Distribution Width 13.9 % (11.5-17.5); White Blood Count 11.9 K/mm3 (4.8-10.8)
[2020-11-25 04:40] LABS: Erythrocyte Sedimentation Rate 7 mm/hr (0-15)
[2020-11-25 04:42] VITALS: BP 143/100; PULSE 63; O2SAT 99
[2020-11-25 04:43] LABS: Procalcitonin 0.044 ng/mL (0.0-2.0)
[2020-11-25 04:55] VITALS: BP 140/81; PULSE 58; O2SAT 94
[2020-11-25 05:25] LABS: Amylase 78 U/L (30-110); Lipase 143 U/L (23-300)
[2020-11-25 05:30] VITALS: BP 120/81; PULSE 67; O2SAT 94
--- NOTE | 2020-11-25 05:36 | HMH.EDSOB ---
ED Disposition Clinical Impression: COVID-19 virus infection Cholelithiasis Qualifiers: Cholelithiasis location: gallbladder Cholecystitis presence: without cholecystitis Biliary obstruction: without biliary obstruction Qualified Code(s): K80.20 - Calculus of gallbladder without cholecystitis without obstruction Disposition: Home, Self-Care Condition on Discharge: Good Instructions: DI for COVID-19 (Suspected or Confirmed ) Additional Instructions: fluids and see pcp for follow up Referrals: Silvestre Arana MD [Primary Care Provider] - - Critical Care Critical Care Time: No Attestation: On 11/25/20, the high probability of a clinically significant, sudden or life threatening deterioration of the following system(s) required my full and direct attention, intervention and personal management. The time I documented below is in addition to time spent performing reported procedures but includes the following listed in this critical care notation. Medical Decision Making - Medical Records Medical records reviewed: Yes: I reviewed the patient's medical records. - Brody Inquiry Pt receiving controlled substance: No Vital Signs: 11/25/20 03:44 11/25/20 04:42 11/25/20 04:55 Temperature 97.7 F Temperature Source Oral Pulse Rate [Right] 87 63 58 L Respiratory Rate 22 Blood Pressure [Right Arm] 149/104 H 143/100 H 140/81 Blood Pressure Mean [Right Arm] 119 114 100 02 Sat by Pulse Oximetry 98 99 94 L Oxygen Delivery Method Room Air 11/25/20 05:30 Temperature Temperature Source Pulse Rate [Right] 67 Respiratory Rate Blood Pressure [Right Arm] 120/81 Blood Pressure Mean [Right Arm] 94 02 Sat by Pulse Oximetry 94 L Oxygen Delivery Method - Lab Data Lab results reviewed: Yes: I reviewed the patient's lab results. Lab Results 11/25/20 04:06: WBC 11.9 H, RBC 5.58, Hgb 17.5, Hct 48.6, MCV 87.0, MCH 31.4 H, MCHC 36.1 H, RDW 13.9, Plt Count 192, MPV 8.6, Neut % (Auto) 72.1, Lymph % (Auto) 19.9, [place] % (Auto) 6.5, Eos % (Auto) 1.1, Baso % (Auto) 0.4, Neut # (Auto) 8.6 H, Lymph # (Auto) 2.4, [place] # (Auto) 0.8, Eos # (Auto) 0.1, Baso # (Auto) 0.1 11/25/20 04:06: Sodium 137, Potassium 4.3, Chloride 102, Carbon Dioxide 24, Anion Gap 15.3 H, BUN 21 H, Creatinine 0.90, Estimated Creat Clear 173, Estimated GFR 95, Est GFR ( Amer) 115, Glucose 113 H, Calcium 9.6, Total Bilirubin 1.0, AST 51, ALT 47, Alkaline Phosphatase 81, Total Protein 8.7 H, Albumin 4.6, Globulin 4.1 H, Albumin/Globulin Ratio 1.1 11/25/20 04:06: ESR 7 11/25/20 04:06: C-Reactive Protein 1.4, Procalcitonin 0.044 11/25/20 04:06: Amylase 78, Lipase 143 Result diagrams: 11/25/20 04:06 11/25/20 04:06 Orders (Tests/Meds): ED MEDICATIONS Generic Name Dose Route Start Last Admin Trade Name Freq PRN Reason Stop Dose Admin Sodium Chloride 1,000 mls @ 999 mls/hr 11/25/20 04:15 11/25/20 04:04 Sod Chlor 0.9% 1000ml Bag IV 11/25/20 05:15 999 mls/hr .Q1H1M MIGUEL Administration Discontinued Medications Generic Name Dose Route Start Last Admin Trade Name Freq PRN Reason Stop Dose Admin Dexamethasone Sodium Phosphate 10 mg 11/25/20 04:01 11/25/20 04:03 Dexamethasone 4mg/Ml 5ml Mdv IV 11/25/20 04:02 10 mg ONCE ONE Administration Iopamidol 70 ml 11/25/20 04:32 11/25/20 04:25 Iopamidol-370 (76%);100ml Bottle IV 11/25/20 04:33 70 ml ONCE ONE Administration Ketorolac Tromethamine 30 mg 11/25/20 04:02 11/25/20 04:03 Ketorolac 30mg/Ml Vial IV 11/25/20 04:03 30 mg ONCE ONE Administration Sodium Chloride 40 ml 11/25/20 04:32 11/25/20 04:25 0.9 % Sodium Chloride 50 Ml Vial IV 11/25/20 04:33 40 ml ONCE ONE Administration Sodium Chloride 10 ml 11/25/20 04:32 11/25/20 04:33 Sodium Chloride 0.9% 10ml Syr (Rad Only) IV 11/25/20 04:33 10 ml ONCE ONE Administration ORDERS Category Date Time Status CT Chest w/PE protocol [CT angio chest] Stat Cat Scan 11/25/20 04:05
[2020-11-25 05:56] VITALS: BP 120/81; PULSE 89; RESP 18; TEMP 36.5; O2SAT 95
== END 2020-11-25 05:58 | disposition home or self-care (01) ==
PROVIDERS: Emergency Provider Emergency Medicine; PCP Emergency Medicine
DX: U07.1 COVID-19 (principal); K80.20 Calculus of gallbladder without cholecystitis without obstruction; F41.9 Anxiety disorder, unspecified; K21.9 Gastro-esophageal reflux disease without esophagitis; F17.210 Nicotine dependence, cigarettes, uncomplicated; Z88.2 Allergy status to sulfonamides; Z88.5 Allergy status to narcotic agent; Z79.899 Other long term (current) drug therapy
CPT/HCPCS: 71046; 71275; 80053; 82150; 83690; 84145; 85025; 85651; 86140; 96375; 99283; Q9967

== ENCOUNTER → 2020-12-27 15:08 | Outpatient (CLI) | payer BC, SELFPAY ==
[2020-12-28 10:00] LABS: Basophils # 0.1 K/mm3 (0-0.2); Basophils % 0.5 % (0.1-2.0); Eosinophils # 0.1 K/mm3 (0.0-0.4); Eosinophils % 1.1 % (0.1-12.0); Hematocrit 48.2 % (42.0-52.0); Hemoglobin 15.8 g/dL (14.1-18.0); Lymphocytes # 2.1 K/mm3 (0.7-4.5); Lymphocytes % 21.9 % (10-50); Mean Corpuscular HGB Conc 32.9 g/dL (31.8-35.4); Mean Corpuscular Hemoglobin 30.8 pg (27.0-31.2); Mean Corpuscular Volume 93.7 fl (80-94); Mean Platelet Volume 10.5 fl (7.4-10.4); Monocytes # 0.5 K/mm3 (0.1-1.0); Monocytes % 5.3 % (1.7-9.3); Neutrophils # 6.8 K/mm3 (1.8-7.8); Neutrophils % 71.1 % (37.0-80.0); Platelet Count 215 K/mm3 (142-424); Red Blood Count 5.14 M/mm3 (4.60-6.20); Red Cell Distribution Width 14.3 % (11.5-17.5); White Blood Count 9.5 K/mm3 (4.8-10.8)
[2020-12-28 10:01] LABS: Chloride 107 mmol/L (98-107)
[2020-12-28 10:02] LABS: Potassium 3.9 mmoL/L (3.5-5.1); Sodium 139 mmol/L (136-145)
[2020-12-28 10:04] LABS: Alanine Aminotransferase 100 U/L (12-78); Alkaline Phosphatase 109 U/L (38-126); Anion Gap 9.9 mEq/L (5-15); Aspartate Amino Transferase 63 U/L (17-59); Bilirubin,Total 0.7 mg/dl (0.2-1.3); Blood Urea Nitrogen 13 mg/dl (9-20); Carbon Dioxide 26 mmol/L (22.0-30.0); Cholesterol 188 mg/dl (140-200); Estimated Glomerular Filt Rate 75 ml/min (>60); GFR (African American) 91 ML/MIN (>60); Triglycerides 172 mg/dl (30-150); VLDL Cholesterol 34 mg/dL (0-40)
[2020-12-28 10:05] LABS: Albumin Level 4.7 g/dl (3.5-5.0); Albumin/Globulin Ratio 1.5 (1.1-1.8); Calcium 9.6 mg/dl (8.4-10.2); Chol/HDL Ratio 6.1 (1-3.5); Globulin 3.2 g/dL (1.3-3.2); Glucose 121 mg/dl (74-100); HDL Cholesterol 31 mg/dl (40-60); Total Protein,Serum 7.9 g/dl (6.3-8.2)
[2020-12-28 10:19] LABS: Direct LDL Cholesterol 117.21 mg/dL (100-129); Hemoglobin A1C 4.9 % (4.0-6.0)
[2020-12-28 10:36] LABS: Thyroid Stimulating Hormone 2.59 uIU/mL (0.465-4.68)
[2020-12-28 13:46] LABS: Free T4 (Free Thyroxine) 1.22 ng/dl (0.78-2.19)
== END ==
PROVIDERS: Visit Provider Physician Assistant
DX: R53.83 Other fatigue (principal); R53.1 Weakness; R69 Illness, unspecified
CPT/HCPCS: 80053; 80061; 83036; 84439; 84443; 85025

== ENCOUNTER 2021-03-02 11:56 | Emergency (ER) | payer BC, SELFPAY ==
[2021-03-02] VITALS (8 sets, daily range): BP systolic 124–172; BP diastolic 89–111; PULSE 51–98; RESP 18–20; TEMP 36.6–36.7; O2SAT 94–97; BMI 32.1
--- NOTE | 2021-03-02 11:54 | ECG_ITS ---
APPROVED REPORT Exam: Resting ECG HR:84 bpm ECG Measurements Heart Rate 84 AXES MT 156 P 45 QRSd 108 QRS 17 QT 378 T 48 QTc 446 Conclusion Normal sinus rhythm Incomplete right bundle branch block Borderline ECG Electronically signed by : Rashid Moise, 03/03/2021 08:47:11
--- NOTE | 2021-03-02 12:00 | HMH.EDGENADL ---
ED Disposition Clinical Impression: Left arm pain Disposition: Home, Self-Care Condition on Discharge: Good Additional Instructions: Start metoprolol as prescribed. Continue taking hydrochlorothiazide. Follow-up with Dr. Grant in his office, call for appointment. See Dr. Arana in his office on Friday for follow-up. Return if any worsening of symptoms: Increased arm pain, increased shortness of breath, chest pain, numbness or weakness. Prescriptions: Metoprolol Succinate [Metoprolol Succinate 25mg Tablet*] 25 mg PO DAILY #30 tab Transmission Status: Pending to [facility] #[id number] Referrals: Silvestre Arana MD [Primary Care Provider] - Earnest Grant MD [Staff Physician] - - Critical Care Critical Care Time: No Attestation: On , the high probability of a clinically significant, sudden or life threatening deterioration of the following system(s) required my full and direct attention, intervention and personal management. The time I documented below is in addition to time spent performing reported procedures but includes the following listed in this critical care notation. Medical Decision Making - Brody Inquiry Pt receiving controlled substance: No Vital Signs: 03/02/21 11:57 03/02/21 13:00 03/02/21 13:30 Temperature 98.0 F Temperature Source Oral Pulse Rate 73 59 L Pulse Rate [Right Radial] 98 H Respiratory Rate 20 Blood Pressure 147/103 H 144/98 H Blood Pressure [Right Arm] 172/111 H Blood Pressure Mean 127 117 Blood Pressure Mean [Right Arm] 131 02 Sat by Pulse Oximetry 96 94 L 96 Oxygen Delivery Method Room Air 03/02/21 14:00 03/02/21 14:30 03/02/21 14:45 Temperature Temperature Source Pulse Rate 51 L 68 63 Pulse Rate [Right Radial] Respiratory Rate Blood Pressure 133/95 H 131/93 H Blood Pressure [Right Arm] Blood Pressure Mean 111 101 Blood Pressure Mean [Right Arm] 02 Sat by Pulse Oximetry 94 L 97 97 Oxygen Delivery Method 03/02/21 15:00 Temperature Temperature Source Pulse Rate 64 Pulse Rate [Right Radial] Respiratory Rate Blood Pressure 124/91 H Blood Pressure [Right Arm] Blood Pressure Mean 98 Blood Pressure Mean [Right Arm] 02 Sat by Pulse Oximetry 97 Oxygen Delivery Method - Lab Data Lab Results 03/02/21 11:58: WBC 9.8, RBC 5.31, Hgb 16.3, Hct 46.3, MCV 87.1, MCH 30.6, MCHC 35.2, RDW 13.4, Plt Count 183, MPV 8.4, Neut % (Auto) 70.3, Lymph % (Auto) 21.1, [place] % (Auto) 6.1, Eos % (Auto) 2.1, Baso % (Auto) 0.4, Neut # (Auto) 6.9, Lymph # (Auto) 2.1, [place] # (Auto) 0.6, Eos # (Auto) 0.2, Baso # (Auto) 0.0 03/02/21 11:58: Sodium 140, Potassium 3.8, Chloride 105, Carbon Dioxide 27, Anion Gap 11.8, BUN 15, Creatinine 1.00, Estimated Creat Clear 162, Estimated GFR 84, Est GFR ( Amer) 102, Glucose 98, Calcium 10.0, Total Bilirubin 0.5, AST 55, ALT 93 H, Alkaline Phosphatase 93, Troponin I < 0.01, Total Protein 8.4 H, Albumin 5.0, Globulin 3.4 H, Albumin/Globulin Ratio 1.5 03/02/21 14:49: Troponin I < 0.01 Result diagrams: 03/02/21 11:58 03/02/21 11:58 Orders (Tests/Meds): ORDERS Category Date Time Status Consult to Cardiology [CONS] Routine Cons 03/02/21 14:13 Active Troponin I Q3H Lab 03/02/21 18:15 Ordered - CT Data CT Scan: Head Time Received: 13:[address] Reviewed: Yes: I have viewed the radiologist's interpretation Findings Narrative: PROCEDURE: CT HEAD/BRAIN WO CON CLINICAL INDICATION: headache COMPARISON: CT HEADWO CT head/brain wo con from 09/28/2018 TECHNIQUE: Axial images obtained. All CT scans at the facility use one or more dose reduction, viz: automated exposure control, ma/kV adjustment per patient size (including targeted exams where dose is matched to indication, i.e. head), or iterative reconstruction technique. FINDINGS: No midline shift, mass effect, intracranial hemorrhage, hydrocephalus, or extra-axial fluid collection is evident.
--- NOTE | 2021-03-02 12:14 | CT_ITS ---
PROCEDURE: CT HEAD/BRAIN WO CON CLINICAL INDICATION: headache COMPARISON: CT HEADWO CT head/brain wo con from 09/28/2018 TECHNIQUE: Axial images obtained. All CT scans at the facility use one or more dose reduction, viz: automated exposure control, ma/kV adjustment per patient size (including targeted exams where dose is matched to indication, i.e. head), or iterative reconstruction technique. FINDINGS: No midline shift, mass effect, intracranial hemorrhage, hydrocephalus, or extra-axial fluid collection is evident. The calvarium has an unremarkable appearance. No mastoid effusion. Mild mucosal thickening the sphenoid sinus with moderate opacification of the ethmoid sinuses and mild mucosal thickening of the frontal sinuses. IMPRESSION: 1. No acute intracranial findings. 2. Paranasal sinus disease Dictated by: Jose Arenas MD 03/02/2021 13:03 Jose Arenas MD in [place] 03/02/2021 13:03
[2021-03-02 12:21] LABS: Basophils % 0.4 % (0.1-2.0); Eosinophils # 0.2 K/mm3 (0.0-0.4); Eosinophils % 2.1 % (0.1-12.0); Hematocrit 46.3 % (42.0-52.0); Hemoglobin 16.3 g/dL (14.1-18.0); Lymphocytes # 2.1 K/mm3 (0.7-4.5); Lymphocytes % 21.1 % (10-50); Mean Corpuscular HGB Conc 35.2 g/dL (31.8-35.4); Mean Corpuscular Hemoglobin 30.6 pg (27.0-31.2); Mean Corpuscular Volume 87.1 fl (80-94); Mean Platelet Volume 8.4 fl (7.4-10.4); Monocytes # 0.6 K/mm3 (0.1-1.0); Monocytes % 6.1 % (1.7-9.3); Neutrophils # 6.9 K/mm3 (1.8-7.8); Neutrophils % 70.3 % (37.0-80.0); Platelet Count 183 K/mm3 (142-424); Red Blood Count 5.31 M/mm3 (4.60-6.20); Red Cell Distribution Width 13.4 % (11.5-17.5); White Blood Count 9.8 K/mm3 (4.8-10.8)
[2021-03-02 12:22] LABS: Chloride 105 mmol/L (98-107)
[2021-03-02 12:23] LABS: Potassium 3.8 mmoL/L (3.5-5.1); Sodium 140 mmol/L (136-145)
[2021-03-02 12:25] LABS: Alanine Aminotransferase 93 U/L (12-78); Alkaline Phosphatase 93 U/L (38-126); Aspartate Amino Transferase 55 U/L (17-59); Bilirubin,Total 0.5 mg/dl (0.2-1.3); Blood Urea Nitrogen 15 mg/dl (9-20); Creatinine Clearance Estimated 162 mL/min (50-200); Estimated Glomerular Filt Rate 84 ml/min (>60); GFR (African American) 102 ML/MIN (>60)
[2021-03-02 12:26] LABS: Albumin/Globulin Ratio 1.5 (1.1-1.8); Anion Gap 11.8 mEq/L (5-15); Carbon Dioxide 27 mmol/L (22.0-30.0); Globulin 3.4 g/dL (1.3-3.2); Glucose 98 mg/dl (74-100); Total Protein,Serum 8.4 g/dl (6.3-8.2)
--- NOTE | 2021-03-02 12:34 | PC.NURSE ---
Patient going to radiology via wheelchair at this time.
[2021-03-02 12:38] LABS: Troponin I < 0.01 ng/ml (0.00-0.034)
--- NOTE | 2021-03-02 12:50 | XR_ITS ---
PROCEDURE: XR CHEST 2V CLINICAL HISTORY: arm pain Hypertension, smoker COMPARISON: CR CXR2V XR chest 2V from 09/28/2018 CR XR CHEST PORTABLE from 11/19/2020 CR XR CHEST 2V from 11/25/[address] ANGIO CHEST from 11/25/2020 FINDINGS: The cardiomediastinal silhouette and pulmonary vascularity are within normal limits. The lungs are clear without infiltrates, suspicious nodules, or pleural effusions. No acute bony abnormalities. Surgical clips overlie the left mid lung zone laterally. IMPRESSION: No acute findings. Dictated by: Jose Arenas MD 03/02/2021 14:05 Jose Arenas MD in [place] 03/02/2021 14:05
--- NOTE | 2021-03-02 14:11 | PC.NURSE ---
LEXIS Champagne at bedside.
--- NOTE | 2021-03-02 14:35 | HMH.CNCARD ---
History of Present Illness Consult date: 03/02/21 Requesting physician: Silvestre Arana Consult reason: chest pain Chief complaint: Left arm pain, hypertension Additional Medical History:: 1. Hypertension 2. GERD 3. History of hepatitis C, currently on medication 4. Asthma 5. Tobacco use averaging 1 pack/day 6. Family history of coronary artery disease in his mother and grandmother age is unknown History of present illness: Brought to the emergency department by Dr. Arana in private vehicle. 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 Denies chest pain. States he just does not feel well. No visual disturbance. He says on the way here his legs got tingly, no weakness of the legs. No problems with speech. His blood pressure was checked at work and was elevated. He is treated for hypertension. He was given aspirin at work. The above per Dr. Morfin Patient confirms the events as accounted above. He does note intermittent palpitations from time to time without chest pain. 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 He does drink energy drinks and only gets about 4 hours of sleep per night. He feels fatigue when he wakes up. He has never been checked for obstructive sleep apnea. EKG is sinus rhythm with no acute ST segment changes Initial troponin is normal Chest x-ray is unremarkable Head CT shows no acute changes Cardiology consulted for evaluation and recommendations. [facility] History Medical History: Reports:: Anxiety, Asthma, Hepatitis Denies:: Diabetes Mellitus Type 1, Diabetes Mellitus Type 2, Gastroesophageal Reflux Disease(GERD), Hyperlipidemia, Internal Pacemaker, Seizures *Have you ever received a pneumonia vaccine?: No *Have you received a flu vaccine this season?: Yes Other Medical History: Reports: Other Laterality Cases: Left: Arthroscopy Shoulder, Bilateral: Other Other Surgeries: Yes: No Previous Surgery, Other. No: Pacemaker Amputation: No Fractures: No - *Social History Smoking Status: Current every day smoker Tobacco Type: cigarettes # Packs/Day (cigarettes): 1 Alcohol Intake: former Substance Use Type: heroin, former substance user *Occupational Status:: employed Housing: house Household Members: spouse *Travel in the last 8 weeks: Inside the [facility] - Psychiatric History Pschychiatric History:: Reports:: Anxiety Family Hx:: No significant family history Meds Home Medications Medication Instructions Recorded Confirmed Type albuterol sulfate 90 mcg/actuation 2 puff INHALATION Q4-6H PRN #8.5 g 03/09/20 03/02/21 Rx aerosol inhaler Fluticasone/Vilanterol [Breo 1 inh INHALATION DAILY 11/25/20 03/02/21 History Ellipta] hydroCHLOROthiazide [HCTZ 25mg 12.5 mg PO DAILY 11/25/20 03/02/21 History tab] ondansetron 4 mg disintegrating 4 mg PO Q8H PRN 5 Days #14 tab 12/27/20 03/02/21 Rx tablet Allergies Allergy/AdvReac Type Severity Reaction Status Date / Time hydrocodone Allergy Verified 03/02/21 11:34 Sulfa (Sulfonamide Allergy Verified 03/02/21 11:34 Antibiotics) Exam Vital signs and Labs for Last 24 Hours: Temp Pulse Resp BP Pulse Ox 98.0 F 51 L 20 133/95 H 94 L 03/02/21 11:57 03/02/21 14:00 03/02/21 11:57 03/02/21 14:00 03/02/21 14:00 Laboratory Results - last 24 hr 03/02/21 11:58: WBC 9.8, RBC 5.31, Hgb 16.3, Hct 46.3, MCV 87.1, MCH 30.6, MCHC 35.2, RDW 13.4, Plt Count 183, MPV 8.4, Neut % (Auto) 70.3, Lymph % (Auto) 21.1, [place] % (Auto) 6.1, Eos % (Auto) 2.1, Baso % (Auto) 0.4, Neut # (Auto) 6.9, Lymph # (Auto) 2.1, [place] # (Auto) 0.6, Eos # (Auto) 0.2, Baso # (Auto) 0.0 03/02/21 11:58: Sodium 140, Potassium 3.8, Chloride 105, Carbon Dioxide 27, Anion Gap 11.8, BUN 15, Creatinine 1.00, Estimated Creat Clear 162, Estimated GFR 84, Est GFR ( Amer) 102, Glucose 98, Ca
--- NOTE | 2021-03-02 14:51 | PC.NURSE ---
WILLA BUCK speaking with Dr. underwood
--- NOTE | 2021-03-02 14:51 | PC.NURSE ---
MD Morfin talking with Sumit at this time via phone.
[2021-03-02 15:33] LABS: Troponin I < 0.01 ng/ml (0.00-0.034)
== END 2021-03-02 16:05 | disposition home or self-care (01) ==
PROVIDERS: Emergency Provider Emergency Medicine; PCP Emergency Medicine
DX: M79.602 Pain in left arm (principal); R07.9 Chest pain, unspecified; J45.909 Unspecified asthma, uncomplicated; F41.9 Anxiety disorder, unspecified; K21.9 Gastro-esophageal reflux disease without esophagitis; R03.0 Elevated blood-pressure reading, without diagnosis of hypertension; E78.5 Hyperlipidemia, unspecified; Z95.0 Presence of cardiac pacemaker; F17.210 Nicotine dependence, cigarettes, uncomplicated; F19.11 Other psychoactive substance abuse, in remission; Z79.899 Other long term (current) drug therapy; Z88.2 Allergy status to sulfonamides
CPT/HCPCS: 70450; 71046; 80053; 84484; 85025; 93005; 99282

== ENCOUNTER → 2021-03-06 09:36 | Outpatient (CLI) | payer BC, SELFPAY ==
[2021-03-06 14:34] LABS: Alanine Aminotransferase 84 U/L (12-78); Albumin Level 4.7 g/dl (3.5-5.0); Alkaline Phosphatase 91 U/L (38-126); Aspartate Amino Transferase 54 U/L (17-59); Bilirubin,Direct 0.3 mg/dl (0.0-0.4); Bilirubin,Indirect 0.2 mg/dL (0.0-0.9); Bilirubin,Total 0.5 mg/dl (0.2-1.3); Bilirubin,Unconjugated 0.2 mg/dL (0.0-1.1); Chol/HDL Ratio 7.1 (1-3.5); Cholesterol 171 mg/dl (140-200); HDL Cholesterol 24 mg/dl (40-60); Total Protein,Serum 7.7 g/dl (6.3-8.2); Triglycerides 178 mg/dl (30-150); VLDL Cholesterol 36 mg/dL (0-40)
[2021-03-06 14:37] LABS: Basophils % 0.4 % (0.1-2.0); Eosinophils # 0.1 K/mm3 (0.0-0.4); Eosinophils % 1.8 % (0.1-12.0); Hematocrit 45.5 % (42.0-52.0); Hemoglobin 15.8 g/dL (14.1-18.0); Lymphocytes # 1.6 K/mm3 (0.7-4.5); Lymphocytes % 21.5 % (10-50); Mean Corpuscular HGB Conc 34.8 g/dL (31.8-35.4); Mean Corpuscular Volume 89.1 fl (80-94); Mean Platelet Volume 9.2 fl (7.4-10.4); Monocytes # 0.5 K/mm3 (0.1-1.0); Monocytes % 6.9 % (1.7-9.3); Neutrophils # 5.3 K/mm3 (1.8-7.8); Neutrophils % 69.3 % (37.0-80.0); Platelet Count 198 K/mm3 (142-424); Red Blood Count 5.11 M/mm3 (4.60-6.20); Red Cell Distribution Width 13.4 % (11.5-17.5); White Blood Count 7.6 K/mm3 (4.8-10.8)
[2021-03-06 14:45] LABS: Direct LDL Cholesterol 108.14 mg/dL (100-129)
[2021-03-06 14:51] LABS: Free T4 (Free Thyroxine) 1.14 ng/dl (0.78-2.19)
[2021-03-06 15:05] LABS: Thyroid Stimulating Hormone 2.45 uIU/mL (0.465-4.68)
== END ==
LOC: RT 09:37
PROVIDERS: Physician Assistant; PCP Emergency Medicine; Visit Provider Nurse Practitioner Family
DX: R07.9 Chest pain, unspecified (principal); R06.00 Dyspnea, unspecified; R00.2 Palpitations; I10 Essential (primary) hypertension; E66.9 Obesity, unspecified; K21.9 Gastro-esophageal reflux disease without esophagitis; R06.83 Snoring; R40.0 Somnolence; R53.83 Other fatigue; Z79.899 Other long term (current) drug therapy
CPT/HCPCS: 80061; 80076; 84439; 84443; 85025; 93270

== ENCOUNTER → 2021-03-06 14:13 | Outpatient (CLI) | payer BC, SELFPAY | PROVIDERS: Visit Provider Nurse Practitioner Family | DX: R07.9 Chest pain, unspecified (principal); R06.00 Dyspnea, unspecified | CPT/HCPCS: 80061; 80076; 84439; 84443; 85025 ==

== ENCOUNTER → 2021-03-20 12:43 | Outpatient (CLI) | payer BC, SELFPAY ==
--- NOTE | 2021-03-20 12:44 | CA_ITS ---
APPROVED REPORT Exam: Exercise Treadmill Technologist: Inocencia Alcaraz, Ht: 6 ft 2 in Wt: 249 lbs BSA: 2.39 m2 HR: 75 bpm Rhythm: NSR, NORMAL Medical History Medical History: HTN Medications: Aspirin,,,,, Metoprolol,,,,, Hydrochlorothiazide,,,,, Albuterol,,,,, BREo,,,,, Omepazole,,,,, TeNOFOVIR,,,,, DiSOPRXIL,,,,, Stress Test Details Test: Giovanny HR Resting HR: 78 bpm Max Heart Rate (APMHR): 183.933600 bpm Max HR Achieved: 148 bpm Target HR (85% APMHR): 155.064816 bpm % of APMHR: 80.87 Recovery HR: 135 bpm BP Resting BP: 130/88 mmHg Max BP: 190/90 mmHg Recovery BP: 178.0/85.0 mmHg ECG Resting ECG: NSR, NORMAL Clinical Exercise duration: 08:23 min Highest Stage Achieved: Exercise capacity: 10.1 METs Stress ECG Conclusion PT EXERCISED TOTAL TIME OF 8:23 ON GIOVANNY PROTOCOL. PT HAD NO CHEST PAIN. NO ARRYTHMIAS OR ECTOPY. NORMAL ST RESPONSE TO EXERCISE. NORMAL GXT TO HR ACHIEVED, 81% OF PM. BLUNTED HR RESPONSE ON BETA NICO. GXT ONLY. Electronically signed by : Jack Allen, 03/20/2021 19:17:14
--- NOTE | 2021-03-20 12:44 | CA_ITS ---
APPROVED REPORT EXAM: Comprehensive 2D, Doppler, and color-flow Echocardiogram Appliance Installer: Elsy Lockett RVT Ht: 6 ft 2 in Wt: 248lbs BSA: 2.38 BP: 139/89 mmHg Indications: SOA,SMOKER,PALPS,SMOKER,CP,GERD,HX IV DRUG USE,HX COCAINE USE 2D Dimensions LVOT 2.47 cm (M/F) 1.5-2.5 LA Volume 33.20 mL LA Volume Index 13.94 mL/m2 (M/F) 16-34 M-Mode Dimensions RVDd 1.99 cm (0.9-2.6) LA Diam 4.27 cm (1.9-4.0) LVDd 6.74 cm (3.5-5.7) Ao Diam 3.19 cm (2.0-3.7) LVDs 4.66 cm (3.5-5.7) IVSd 0.85 cm (0.6-1.1) PWd 0.76 cm (0.6-1.1) EF (Teich) 57.20% FS 30.90% EDV (Teich) 234.50 mL TAPSE 2.48 (<1.7) ESV (Teich) 100.30 mL LV Diastology E Decel Time 213.00 (160-240 msec) E/A Ratio 1.3 MED E' 7.20 (< 7 cm/sec) E'/MED E' Ratio 11.44 (>14) LAT E' 14.80 (<10 cm/sec) E/LAT E' Ratio 5.57 (>14) Aortic Valve AO Peak GR. 8.30 mmHg Mitral Valve MV E Max Baltazar. 82.00 (40-130 cm/s) MV A Velocity 65.00 (40-130 cm/s) E/A Ratio 1.26 MV Decel. Time 213.00 (160-240 ms) MV PHT 62.00 ms Pulmonary Valve PV Peak Velocity 87.00 (50-150 cm/s) Tricuspid Valve TR P. Velocity 283.00 cm/s RAP Estimate 10.00 mmHg RVSP 42.10 mmHg Left Ventricle Left atrium normal size, left ventricle is normal size, there is no concentric left ventricular hypertrophy, visually estimated ejection fraction 55% with no regional wall motion abnormality, diastolic parameters are within normal range. Right Ventricle Right atrium and right ventricle are normal size and contractility. Aortic Valve Aortic valve is grossly normal, there is no aortic stenosis or aortic insufficiency. Mitral Valve Mitral valve is grossly normal, there is trace mitral regurgitation. Tricuspid Valve Tricuspid grossly normal, there is trace tricuspid regurgitation. Tricuspid regurgitation jet velocity is inadequate for calculation of the right ventricular systolic pressure. Pulmonic Valve Pulmonic valve is poorly visualized. Great Vessels Aortic root is normal size. Pericardium No significant pericardial effusion noted. Conclusion 1. Normal left ventricular size, preserved left ventricular systolic function, visually estimated ejection fraction 55% with no regional wall motion abnormality, diastolic parameters are within normal range. 2. Trace mitral and tricuspid regurgitation. 3. No significant pericardial effusion noted. Electronically signed by : Jack Allen, 03/20/2021 21:23:52
== END ==
LOC: RT 12:44
PROVIDERS: PCP Emergency Medicine; Visit Provider Nurse Practitioner Family
DX: R06.00 Dyspnea, unspecified (principal); R07.9 Chest pain, unspecified; R00.2 Palpitations; E66.9 Obesity, unspecified; I10 Essential (primary) hypertension; K21.9 Gastro-esophageal reflux disease without esophagitis; R06.83 Snoring; R40.0 Somnolence; R53.83 Other fatigue
CPT/HCPCS: 93017; 93306; G0399

== ENCOUNTER 2021-06-13 12:38 | Emergency (ER) | payer BC, SELFPAY ==
--- NOTE | 2021-06-13 12:38 | ECG_ITS ---
APPROVED REPORT Exam: Resting ECG HR:90 bpm ECG Measurements Heart Rate 90 AXES NJ 156 P 41 QRSd 106 QRS 31 QT 364 T 48 QTc 445 Conclusion Normal sinus rhythm Normal ECG Electronically signed by : Rashid Miose MD 06/14/2021 22:29:57
[2021-06-13 12:40] VITALS: BP 153/104; PULSE 91; RESP 18; TEMP 36.9; O2SAT 97; BMI 29.5
--- NOTE | 2021-06-13 12:47 | HMH.EDGENADL ---
ED Disposition Clinical Impression: Palpitation, Atypical chest pain Disposition: Home, Self-Care Condition on Discharge: Good Additional Instructions: Stop taking caffeine like Mountain Dew and energy drink. Continue home medications metoprolol. Return to the emergency room if new symptoms or worsening of symptoms. Follow-up with primary care physician. Referrals: Provider,Referral, [Primary Care Provider] - - Critical Care Critical Care Time: No Attestation: On 06/13/21, the high probability of a clinically significant, sudden or life threatening deterioration of the following system(s) required my full and direct attention, intervention and personal management. The time I documented below is in addition to time spent performing reported procedures but includes the following listed in this critical care notation. Medical Decision Making - Medical Records MR Comment: . EKG shows normal sinus rhythm. Troponin was negative. He has palpitation due to high consumption of caffeine. Instructed to stop taking caffeine and follow-up with primary care physician. - Brody Inquiry Pt receiving controlled substance: No Brody was queried for this patient: No Vital Signs: 06/13/21 12:40 06/13/21 13:30 06/13/21 13:45 Temperature 98.4 F Temperature Source Oral Pulse Rate 83 86 Pulse Rate [Right] 91 H Respiratory Rate 18 20 21 Blood Pressure 116/82 110/76 Blood Pressure [Right Arm] 153/104 H Blood Pressure Mean [Right Arm] 120 02 Sat by Pulse Oximetry 97 96 96 Oxygen Delivery Method Room Air 06/13/21 14:30 Temperature Temperature Source Pulse Rate 68 Pulse Rate [Right] Respiratory Rate 17 Blood Pressure 120/75 Blood Pressure [Right Arm] Blood Pressure Mean [Right Arm] 02 Sat by Pulse Oximetry 95 Oxygen Delivery Method - Lab Data Lab Results 06/13/21 12:47: WBC 10.4, RBC 4.98, Hgb 15.2, Hct 43.8, MCV 87.9, MCH 30.5, MCHC 34.7, RDW 13.6, Plt Count 198, MPV 8.1, Neut % (Auto) 75.5, Lymph % (Auto) 17.4, [place] % (Auto) 5.1, Eos % (Auto) 1.6, Baso % (Auto) 0.5, Neut # (Auto) 7.8, Lymph # (Auto) 1.8, [place] # (Auto) 0.5, Eos # (Auto) 0.2, Baso # (Auto) 0.1 06/13/21 12:47: Troponin I < 0.01 06/13/21 12:47: Sodium 141, Potassium 4.3, Chloride 104, Carbon Dioxide 27, Anion Gap 14.3, BUN 19, Creatinine 1.20, Estimated Creat Clear 123, Estimated GFR 68, Est GFR ( Amer) 82, Glucose 114 H, Calcium 9.3 Result diagrams: 06/13/21 12:47 06/13/21 12:47 Orders (Tests/Meds): ORDERS Category Date Time Status Troponin I Q3H Lab 06/13/21 16:00 Ordered Troponin I Q3H Lab 06/13/21 19:00 Ordered General Adult HPI - General Stated complaint: CP Time Seen by Provider: 06/13/21 12:47 Mode of Arrival: Ambulatory Source of Information: Patient Limitations: No Limitations - History of Present Illness HPI narrative: Mr. Sullivan is a 36-year old male is complaining of palpitation and chest discomfort which is intermittent and lasts usually few seconds. He had this problem before and he was prescribed metoprolol by his primary care physician and advised to stop using caffeine drink. However he continues to drink Mountain Dew due to soft drink diet type he thought diet does not have any caffeine in it. He does not have any diaphoresis. No radiation of the chest there is no comfort. He denied any acid reflux problem. The only medication he takes is metoprolol. He works as a paperhanger and painter. He denies any history of heart disease. He does not have any chest pain with exertion or shortness of breath with exertion. He feels intermittent fluttering sensation in the chest. Onset (ago): hour(s) Location: chest Radiation: non-radiation Severity: mild Severity scale (1-10): 2 Quality: aching Consistency: intermittent Exacerbating factors: none - Related Data Home Medications Medication Instructions Recorded Confirmed Fluticasone/Vilanterol [Breo 1 inh INHALATION DAILY 11/25/20 05/08/21
--- NOTE | 2021-06-13 12:49 | XR_ITS ---
PROCEDURE: XR CHEST 2V CLINICAL HISTORY: CP Chest pain, smoker COMPARISON: CR XR CHEST PORTABLE from 11/19/[address] ANGIO CHEST from 11/25/2020 CR XR CHEST 2V from 11/25/2020 CR XR CHEST 2V from 03/02/2021 FINDINGS: The cardiomediastinal silhouette and pulmonary vascularity are within normal limits. The lungs are clear without infiltrates, suspicious nodules, or pleural effusions. Surgical clips are noted over the left breast region. No acute bony findings. IMPRESSION: No acute findings. Dictated by: Jose Arenas MD 06/13/2021 14:07 Jose Arenas MD in [facility] 06/13/2021 14:07
[2021-06-13 12:58] LABS: Basophils # 0.1 K/mm3 (0-0.2); Basophils % 0.5 % (0.1-2.0); Eosinophils # 0.2 K/mm3 (0.0-0.4); Eosinophils % 1.6 % (0.1-12.0); Hematocrit 43.8 % (42.0-52.0); Hemoglobin 15.2 g/dL (14.1-18.0); Lymphocytes # 1.8 K/mm3 (0.7-4.5); Lymphocytes % 17.4 % (10-50); Mean Corpuscular HGB Conc 34.7 g/dL (31.8-35.4); Mean Corpuscular Hemoglobin 30.5 pg (27.0-31.2); Mean Corpuscular Volume 87.9 fl (80-94); Mean Platelet Volume 8.1 fl (7.4-10.4); Monocytes # 0.5 K/mm3 (0.1-1.0); Monocytes % 5.1 % (1.7-9.3); Neutrophils # 7.8 K/mm3 (1.8-7.8); Neutrophils % 75.5 % (37.0-80.0); Platelet Count 198 K/mm3 (142-424); Red Blood Count 4.98 M/mm3 (4.60-6.20); Red Cell Distribution Width 13.6 % (11.5-17.5); White Blood Count 10.4 K/mm3 (4.8-10.8)
[2021-06-13 12:59] LABS: Chloride 104 mmol/L (98-107); Sodium 141 mmol/L (136-145)
[2021-06-13 13:00] LABS: Potassium 4.3 mmoL/L (3.5-5.1)
[2021-06-13 13:03] LABS: Anion Gap 14.3 mEq/L (5-15); Blood Urea Nitrogen 19 mg/dl (9-20); Calcium 9.3 mg/dl (8.4-10.2); Carbon Dioxide 27 mmol/L (22.0-30.0); Creatinine Clearance Estimated 123 mL/min (50-200); Estimated Glomerular Filt Rate 68 ml/min (>60); GFR (African American) 82 ML/MIN (>60); Glucose 114 mg/dl (74-100)
[2021-06-13 13:16] LABS: Troponin I < 0.01 ng/ml (0.00-0.034)
[2021-06-13 13:30] VITALS: BP 116/82; PULSE 83; RESP 20; O2SAT 96
[2021-06-13 13:45] VITALS: BP 110/76; PULSE 86; RESP 21; O2SAT 96
[2021-06-13 14:30] VITALS: BP 120/75; PULSE 68; RESP 17; O2SAT 95
[2021-06-13 15:23] VITALS: BP 121/79; PULSE 71; RESP 16; TEMP 36.9; O2SAT 97
== END 2021-06-13 15:24 | disposition home or self-care (01) ==
PROVIDERS: Emergency Provider Internal Medicine
DX: R07.89 Other chest pain (principal); R00.2 Palpitations; T43.615A Adverse effect of caffeine, initial encounter; K21.9 Gastro-esophageal reflux disease without esophagitis; I10 Essential (primary) hypertension; J45.909 Unspecified asthma, uncomplicated; Z86.16 Personal history of COVID-19; F17.210 Nicotine dependence, cigarettes, uncomplicated
CPT/HCPCS: 71046; 80048; 84484; 85025; 93005; 99283

== ENCOUNTER → 2021-11-20 08:49 | Outpatient (CLI) | payer BC, SELFPAY | PROVIDERS: Visit Provider Nurse Practitioner | DX: Z20.822 Contact with and (suspected) exposure to COVID-19 (principal) | CPT/HCPCS: C9803; U0003; U0005 ==

== ENCOUNTER 2021-12-20 11:34 | Emergency (ER) | payer BC, SELFPAY ==
[2021-12-20 12:46] VITALS: BP 141/88; PULSE 99; RESP 18; TEMP 36.8; O2SAT 99; BMI 32.3
--- NOTE | 2021-12-20 12:50 | XR_ITS ---
FINAL REPORT CLINICAL HISTORY: sob, cough, fatigue x 1 week COMPARISON: 06/13/2021 FINDINGS: TWO VIEWS OF THE CHEST The heart is normal in size. The mediastinum is unremarkable. There is worsening bronchial wall thickening consistent with bronchitis. There is no pneumothorax. IMPRESSION: Bronchitis. Reviewed, Interpreted and Dictated by Roge Nelson III, MD Transcribed by Marcia Ch Authenticated by Roge Nelson III, MD on 12/20/2021 02:12:[address] [facility]
--- NOTE | 2021-12-20 13:03 | HMH.EDUTC ---
[facility] Disposition Clinical Impression: Viral syndrome Asthma exacerbation Qualifiers: Asthma severity: unspecified severity Asthma persistence: unspecified Qualified Code(s): J45.901 - Unspecified asthma with (acute) exacerbation Sinusitis Qualifiers: Sinusitis location: unspecified location Chronicity: acute Recurrence: non-recurrent Qualified Code(s): J01.90 - Acute sinusitis, unspecified Disposition: Home, Self-Care Condition on Discharge: Good Instructions: DI for Sinusitis, DI for Acute Bronchitis, DI for COVID-19 (Suspected or Confirmed ), Preventing the Spread of Coronavirus Discharge Instructions Additional Instructions: Drink plenty of fluids. Take tylenol or ibuprofen for pain or fever. Take the medications as directed. Follow up with your regular doctor. GO TO THE ER FOR ANY WORSENING SYMPTOMS Quarantine until you know the results of your covid-19 test. Notify your school or workplace of your results and follow their instructions regarding return to work/school. Don't start the oral steroids until tomorrow, since you had the shot here today. The cough medication (promethazine dm) will make you drowsy, so don't drive or operate heavy machinery after taking it. Prescriptions: Promethazine/Dextromethorphan [Promethazine-Dm Syrup] 5 ml PO Q6HP PRN #240 ml PRN Reason: Cough Transmission Status: Received by [facility] # Amoxicillin/Potassium Clav [Augmentin 875-125 Tablet] 1 tab PO Q12H 10 Days #20 tab Transmission Status: Received by [facility] # Benzonatate [Benzonatate 100mg cap] 100 mg PO TIDP PRN #30 cap PRN Reason: Cough Transmission Status: Received by [facility] # methylPREDNISolone [Medrol] 4 mg PO DIRECTED 6 Days #21 packet Transmission Status: Received by [facility] # Referrals: Alejandra Guerra PA [Primary Care Provider] - Forms: Work/School Release Time of Disposition: 14:02 Medical Decision Making - Medical Records Medical records reviewed: No: I reviewed the patient's medical records. - Brody Inquiry Pt receiving controlled substance: No Vital Signs: 12/20/21 12:46 12/20/21 14:06 Temperature 98.2 F 98.2 F Temperature Source Oral Pulse Rate 99 H Pulse Rate [Left] 99 H Respiratory Rate 18 18 Blood Pressure 141/88 H Blood Pressure [Right Arm] 141/88 H Blood Pressure Mean [Right Arm] 105 02 Sat by Pulse Oximetry 99 Orders (Tests/Meds): ED MEDICATIONS Discontinued Medications Generic Name Dose Route Start Last Admin Trade Name Konstantin PRN Reason Stop Dose Admin Ceftriaxone Sodium 1 gm 12/20/21 13:40 12/20/21 13:47 Ceftriaxone 1gm Vial IM 12/20/21 13:41 1 gm ONCE ONE Administration Dexamethasone Sodium Phosphate 8 mg 12/20/21 13:40 12/20/21 13:47 Dexamethasone 4mg/Ml 1ml Vial IM 12/20/21 13:41 8 mg ONCE ONE Administration Lidocaine HCl 0 ml 12/20/21 13:40 12/20/21 13:47 Lidocaine 1% 5ml Pf Vial IM 12/20/21 13:41 2 ml ONCE ONE Administration [facility] HPI - General Stated complaint: short of air, gets winded easily, cough Time Seen by Provider: 12/20/21 13:03 Mode of Arrival: Ambulatory Source of Information: Patient Limitations: No Limitations Description of Symptoms (Recalled from Triage Doc. by RN): pt c/o SOA and fatigue x1 wk. HEENT Symptoms (Recalled from RN notes): No Resp Symptoms (Recalled from RN notes): Yes Skin Symptoms (Recalled from RN notes): No MS Symptoms (Recalled from RN notes): No Functional Status (Recalled from RN notes): wnl - History of Present Illness Provider Complaint: He states that for the past approx 5 days he has had fatigue and he has felt bad. He is coughing and has chest congestion. He has a sore throat and body aches also. - Related Data Home Medications Medication Instructions Recorded Confirmed Fluticasone/Vilanterol [Breo 1 inh INHALATION DAILY 11/25/20 07/18/21 Ellipta] om
[2021-12-20 14:06] VITALS: BP 141/88; PULSE 99; RESP 18; TEMP 36.8
== END 2021-12-20 14:07 | disposition home or self-care (01) ==
PROVIDERS: Emergency Provider Nurse Practitioner Family; PCP Physician Assistant
DX: J01.90 Acute sinusitis, unspecified (principal); B34.9 Viral infection, unspecified; J45.901 Unspecified asthma with (acute) exacerbation; F41.9 Anxiety disorder, unspecified; K21.9 Gastro-esophageal reflux disease without esophagitis; I10 Essential (primary) hypertension; Z20.822 Contact with and (suspected) exposure to COVID-19
CPT/HCPCS: 71046; 96372; 99202; C9803; G0463; J0696; U0003; U0005

== ENCOUNTER → 2022-03-19 07:28 | Outpatient (CLI) | payer OTHER, SELFPAY ==
--- NOTE | 2022-03-19 07:34 | MR_ITS ---
FINAL REPORT CLINICAL HISTORY: PAIN IN RIGHT KNEE. TWISTED KNEE AND HEARD A POP AND KNEE GAVE OUT. KNEE INSTABILITY AND SWELLING. FINDINGS: Multiplanar MR imaging of the right knee was performed without contrast. The medial and lateral menisci are intact without evidence of meniscal tear. The anterior and posterior cruciate ligaments are intact. The medial collateral ligament and lateral ligamentous complex are intact. The patellar and quadriceps tendons are intact. There is focal chondral defect at the apex of the patella with adjacent bone marrow edema. Small joint effusion is seen. The musculature is intact. No soft tissue mass or cyst is identified. IMPRESSION: Chondral defect at the apex of the patella with small joint effusion. Reviewed, Interpreted and Dictated by Roge Nelson III, MD Transcribed by Marcia Ch Authenticated by Roge Nelson III, MD on 03/19/2022 09:25:[address] [facility]
== END ==
PROVIDERS: PCP Emergency Medicine; Visit Provider Orthopaedic Surgery Adult Reconstructive Orthopaedic Surgery
DX: M25.561 Pain in right knee (principal)
CPT/HCPCS: 73721

== ENCOUNTER → 2022-05-21 15:54 | Outpatient (CLI) | payer BC, SELFPAY ==
[2022-05-21 19:36] LABS: INR 0.96 (0.9-1.1); Prothrombin Time 10.9 seconds (10.1-12.5)
[2022-05-21 19:42] LABS: Basophils % 0.4 % (0.1-2.0); Eosinophils # 0.1 K/mm3 (0.0-0.4); Hematocrit 44.6 % (42.0-52.0); Hemoglobin 15.7 g/dL (14.1-18.0); Lymphocytes # 1.7 K/mm3 (0.7-4.5); Lymphocytes % 18.1 % (10-50); Mean Corpuscular HGB Conc 35.2 g/dL (31.8-35.4); Mean Corpuscular Hemoglobin 30.9 pg (27.0-31.2); Mean Corpuscular Volume 87.7 fl (80-94); Mean Platelet Volume 8.7 fl (7.4-10.4); Monocytes # 0.6 K/mm3 (0.1-1.0); Monocytes % 6.2 % (1.7-9.3); Neutrophils # 6.9 K/mm3 (1.8-7.8); Neutrophils % 74.2 % (37.0-80.0); Platelet Count 209 K/mm3 (142-424); Red Blood Count 5.08 M/mm3 (4.60-6.20); Red Cell Distribution Width 13.4 % (11.5-17.5); White Blood Count 9.3 K/mm3 (4.8-10.8)
[2022-05-21 20:13] LABS: 25-OH Vitamin D, Total 52.1 ng/mL (30-100)
[2022-05-21 20:45] LABS: Vitamin B12 402 pg/mL (239-931)
[2022-05-23 08:19] LABS: AFP, Tumor Marker 1.9 ng/mL (0.0-6.9)
[2022-05-23 13:13] LABS: Hepatitis Be Antibody Negative (Negative)
[2022-05-23 23:07] LABS: Hep B Surface Ab, Qual Non Reactive (.); Hep Be Ag Positive (Negative)
[2022-05-24 13:13] LABS: HBsAg Confirmation Positive (.); Hepatitis B Surface Antigen Confirm. indicated (Negative)
[2022-05-25 23:14] LABS: HBV IU/mL 7.6
[2022-05-28 16:53] LABS: Vitamin A 59.8 ug/dL (18.9-57.3); Vitamin E Alpha Tocopherol 9.1 mg/L (5.9-19.4); Vitamin E Gamma Tocopherol 2.1 mg/L (0.7-4.9)
[2022-06-13 12:11] LABS: Vitamin K1 0.36 ng/mL (0.10-2.20)
== END ==
PROVIDERS: PCP Physician Assistant
DX: B19.10 Unspecified viral hepatitis B without hepatic coma (principal); E66.9 Obesity, unspecified; Z68.30 Body mass index [BMI] 30.0-30.9, adult
CPT/HCPCS: 36415; 82105; 82306; 82607; 83735; 84446; 84590; 84597; 85025; 85610; 85730; 86706; 86707; 87340; 87350; 87517

== ENCOUNTER 2022-08-19 15:51 | Emergency (ER) | payer BC, SELFPAY ==
--- NOTE | 2022-08-19 16:28 | XR_ITS ---
PROCEDURE INFORMATION: Exam: XR Chest Exam date and time: 08/19/2022 4:29 PM Age: 37 years old Clinical indication: Cough TECHNIQUE: Imaging protocol: Radiologic exam of the chest. Views: 2 views. COMPARISON: CR XR CHEST 2V 12/20/2021 12:59 PM FINDINGS: Lungs: Unremarkable. No consolidation. Pleural spaces: Unremarkable. No pleural effusion. No pneumothorax. Heart/Mediastinum: Unremarkable. No cardiomegaly. Bones/joints: Unremarkable. IMPRESSION: No acute findings.
--- NOTE | 2022-08-19 16:28 | EXP.UTC ---
Discharge Plan Disposition Patient Disposition: Home, Self-Care Condition: Good Prescriptions Prescriptions: New amoxicillin [amoxicillin] 875 mg tablet 875 mg PO Q12H Qty: 20 0RF benzonatate [benzonatate] 100 mg capsule 100 mg PO TIDP PRN (Reason: Cough) Qty: 30 0RF methylprednisolone 4 mg Tablets,Dose Pack 4 mg PO DIRECTED Qty: 21 0RF No Action omeprazole 20 mg capsule,delayed release(DR/EC) 20 mg PO DAILY Label Comments: TAKE 1 CAPSULE BY MOUTH EVERY MORNING BEFORE BREAKFAST tenofovir disoproxil fumarate 300 mg tablet 300 mg PO DAILY aspirin [Adult Low Dose Aspirin] 81 mg tablet,delayed release (DR/EC) 81 mg PO DAILY Qty: 30 5RF ondansetron 8 mg tablet,disintegrating 8 mg PO Q8H PRN (Reason: nausea and vomiting) Qty: 30 0RF metoprolol succinate 100 mg tablet extended release 24 hr 100 mg PO DAILY Qty: 30 0RF albuterol sulfate 90 mcg/actuation HFA aerosol inhaler See Rx Instructions .ROUTE .COMPLEX Qty: 18 4RF Dose Instruction: INHALE 2 PUFFS EVERY FOUR TO SIX HOURS NEEDED FOR SHORTNESS OF BREATH OR WHEEZING Rx Instructions: INHALE 2 PUFFS EVERY FOUR TO SIX HOURS NEEDED FOR SHORTNESS OF BREATH OR WHEEZING fluticasone furoate-vilanterol 100-25 mcg/dose blister with device 1 inh INHALATION DAILY Qty: 60 2RF promethazine-DM 120 ML syrup 5 ml PO Q6HP PRN (Reason: Cough) Qty: 240 0RF methylprednisolone 4 MG tablets,dose pack 4 mg PO DIRECTED 6 Days Qty: 21 0RF benzonatate 100 MG capsule 100 mg PO TIDP PRN (Reason: Cough) Qty: 30 0RF amoxicillin-pot clavulanate 1 EACH tablet 1 tab PO Q12H 10 Days Qty: 20 0RF Referrals Follow up/Referrals: Silvestre Arana MD [Primary Care Provider] - See instructions Activity Restrictions/Add. Instructions Additional Instructions/Restrictions: Drink plenty of fluids. Take tylenol or ibuprofen for pain or fever. Take the medications as directed. Follow up with your regular doctor. GO TO THE ER FOR ANY WORSENING SYMPTOMS Quarantine until you know the results of your covid-19 test. Notify your school or workplace of your results and follow their instructions regarding return to work/school. Don't start the oral steroids until tomorrow, since you had the shot here today. Clinical Impressions Clinical Impression: Asthma exacerbation, Viral syndrome Stand Alone Forms Stand Alone Forms: Work/School Release Instructions Patient Instructions: DI for Asthma -- Adult, Preventing the Spread of Coronavirus Discharge Instructions Discharge ED Provider: Chandler Cleveland [facility] General Stated complaint: SOA,runny nose Time Seen by Provider: 08/19/22 16:27 History of Present Illness Provider Complaint: He states that for the past 3 days he has had sinus congestion, scratchy sore throat,and chest congestion. He has a history of asthma. Related Data Home Medications Medication Instructions Recorded Confirmed omeprazole 20 mg capsule,delayed 20 mg PO DAILY 03/06/21 07/18/21 release tenofovir disoproxil fumarate 300 300 mg PO DAILY 03/06/21 07/18/21 mg tablet Previous Rx's Medication Instructions Recorded aspirin 81 mg tablet,delayed 81 mg PO DAILY #30 tabs 03/06/21 release (Adult Low Dose Aspirin) ondansetron 8 mg disintegrating 8 mg PO Q8H PRN nausea and 06/21/21 tablet vomiting #30 tabs amoxicillin 875 mg-potassium 1 tab PO Q12H 10 days #20 tabs 12/20/21 clavulanate 125 mg tablet benzonatate 100 mg capsule 100 mg PO TIDP PRN Cough #30 caps 12/20/21 methylprednisolone 4 mg tablets in 4 mg PO DIRECTED 6 days #21 12/20/21 a dose pack packets promethazine-DM 6.25 mg-15 mg/5 mL 5 ml PO Q6HP PRN Cough #240 mL 12/20/21 oral syrup metoprolol succinate 100 mg 100 mg PO DAILY #30 tabs 06/24/22 tablet,extended release 24 hr albuterol sulfate 90 mcg/actuation See Rx Instructions .Route 08/13/22 aerosol inhaler .COMPLEX #18 grams fluticas
[2022-08-19 16:30] VITALS: BP 121/92; PULSE 103; RESP 18; TEMP 36.8; O2SAT 95; BMI 31.4
[2022-08-19 17:25] VITALS: BP 121/92; PULSE 103; RESP 18; TEMP 36.8
== END 2022-08-19 17:33 | disposition home or self-care (01) ==
PROVIDERS: Emergency Provider Nurse Practitioner Family; PCP Emergency Medicine
DX: J45.901 Unspecified asthma with (acute) exacerbation (principal); B34.9 Viral infection, unspecified
CPT/HCPCS: 71046; 96372; 99212; G0463; J0696

== ENCOUNTER 2022-09-11 11:36 | Emergency (ER) | payer BC, SELFPAY ==
--- NOTE | 2022-09-11 13:16 | EXP.UTC ---
Discharge Plan Disposition Patient Disposition: Home, Self-Care Condition: Good Prescriptions Prescriptions: No Action omeprazole 20 mg capsule,delayed release(DR/EC) 20 mg PO DAILY Label Comments: TAKE 1 CAPSULE BY MOUTH EVERY MORNING BEFORE BREAKFAST tenofovir disoproxil fumarate 300 mg tablet 300 mg PO DAILY aspirin [Adult Low Dose Aspirin] 81 mg tablet,delayed release (DR/EC) 81 mg PO DAILY Qty: 30 5RF ondansetron 8 mg tablet,disintegrating 8 mg PO Q8H PRN (Reason: nausea and vomiting) Qty: 30 0RF metoprolol succinate 100 mg tablet extended release 24 hr 100 mg PO DAILY Qty: 30 0RF albuterol sulfate 90 mcg/actuation HFA aerosol inhaler See Rx Instructions .ROUTE .COMPLEX Qty: 18 4RF Dose Instruction: INHALE 2 PUFFS EVERY FOUR TO SIX HOURS NEEDED FOR SHORTNESS OF BREATH OR WHEEZING Rx Instructions: INHALE 2 PUFFS EVERY FOUR TO SIX HOURS NEEDED FOR SHORTNESS OF BREATH OR WHEEZING fluticasone furoate-vilanterol 100-25 mcg/dose blister with device 1 inh INHALATION DAILY Qty: 60 2RF promethazine-DM 120 ML syrup 5 ml PO Q6HP PRN (Reason: Cough) Qty: 240 0RF methylprednisolone 4 MG tablets,dose pack 4 mg PO DIRECTED 6 Days Qty: 21 0RF benzonatate 100 MG capsule 100 mg PO TIDP PRN (Reason: Cough) Qty: 30 0RF amoxicillin-pot clavulanate 1 EACH tablet 1 tab PO Q12H 10 Days Qty: 20 0RF amoxicillin [amoxicillin] 875 mg tablet 875 mg PO Q12H Qty: 20 0RF benzonatate [benzonatate] 100 mg capsule 100 mg PO TIDP PRN (Reason: Cough) Qty: 30 0RF methylprednisolone 4 mg Tablets,Dose Pack 4 mg PO DIRECTED Qty: 21 0RF Referrals Follow up/Referrals: Silvestre Arana MD [Primary Care Provider] - See instructions Activity Restrictions/Add. Instructions Additional Instructions/Restrictions: Drink plenty of fluids. Take the medication as directed. I sent in a prescription for ibuprofen. Take the medications as directed. Follow up with your regular doctor. GO TO THE ER FOR ANY WORSENING SYMPTOMS Clinical Impressions Clinical Impression: Headache Stand Alone Forms Stand Alone Forms: Work/School Release Instructions Patient Instructions: DI for Headache Discharge ED Provider: Chandler Cleveland [facility] General Stated complaint: Severe NAGY Time Seen by Provider: 09/11/22 13:16 History of Present Illness Provider Complaint: He states that for the past 2 days he has had a headache that he has not been able to break. He has taken tylenol, ibuprofen and alieve over the past 2 days. He denies any weakness, vision changes or other symptoms. He does not have a history of migraine, but he does have headache occasionally like this. Related Data Home Medications Medication Instructions Recorded Confirmed omeprazole 20 mg capsule,delayed 20 mg PO DAILY 03/06/21 07/18/21 release tenofovir disoproxil fumarate 300 300 mg PO DAILY 03/06/21 07/18/21 mg tablet Previous Rx's Medication Instructions Recorded aspirin 81 mg tablet,delayed 81 mg PO DAILY #30 tabs 03/06/21 release (Adult Low Dose Aspirin) ondansetron 8 mg disintegrating 8 mg PO Q8H PRN nausea and 06/21/21 tablet vomiting #30 tabs amoxicillin 875 mg-potassium 1 tab PO Q12H 10 days #20 tabs 12/20/21 clavulanate 125 mg tablet benzonatate 100 mg capsule 100 mg PO TIDP PRN Cough #30 caps 12/20/21 methylprednisolone 4 mg tablets in 4 mg PO DIRECTED 6 days #21 12/20/21 a dose pack packets promethazine-DM 6.25 mg-15 mg/5 mL 5 ml PO Q6HP PRN Cough #240 mL 12/20/21 oral syrup metoprolol succinate 100 mg 100 mg PO DAILY #30 tabs 06/24/22 tablet,extended release 24 hr albuterol sulfate 90 mcg/actuation See Rx Instructions .Route 08/13/22 aerosol inhaler .COMPLEX #18 grams fluticasone furoate 100 1 inh inhalation DAILY Asthma #60 08/13/22 mcg-vilanterol 25 mcg/dose ea inhalation powder amoxicillin 875 mg tablet 875 mg PO Q12H #20 tabs
[2022-09-11 13:30] VITALS: BP 128/91; PULSE 72; RESP 18; TEMP 36.7; O2SAT 98; BMI 30.8
[2022-09-11 14:48] VITALS: BP 128/91; PULSE 72; RESP 18; TEMP 36.7
== END 2022-09-11 14:50 | disposition home or self-care (01) ==
PROVIDERS: Emergency Provider Nurse Practitioner Family; PCP Emergency Medicine
DX: R51.9 Headache, unspecified (principal); Z79.899 Other long term (current) drug therapy; Z88.2 Allergy status to sulfonamides; Z88.6 Allergy status to analgesic agent; Z72.0 Tobacco use
CPT/HCPCS: 96372; 99212; G0463

== ENCOUNTER 2022-10-07 12:47 | Emergency (ER) | payer BC, SELFPAY ==
[2022-10-07 12:48] VITALS: BP 136/85; PULSE 100; RESP 18; TEMP 36.7; O2SAT 99; BMI 31.4
--- NOTE | 2022-10-07 12:55 | PC.NURSE ---
Rapid covid swab/flu sent to lab
--- NOTE | 2022-10-07 13:04 | XR_ITS ---
FINAL REPORT CLINICAL HISTORY: dyspnea, cough COMPARISON: 08/19/2022 FINDINGS: A single portable view of the chest was obtained. The heart size and pulmonary vascularity are within normal limits. The mediastinum is within normal limits. No acute pulmonary abnormality is identified. The bony thorax is intact. IMPRESSION: No active cardiopulmonary disease. Reviewed, Interpreted and Dictated by Roge Nelson III, MD Transcribed by Betsey Garcia Authenticated and [facility]
[2022-10-07 13:09] LABS: Coronavirus 19, PCR Not Detected (NotDetected); Influenza B, PCR Not Detected (NotDetected)
[2022-10-07 13:12] VITALS: PULSE 108; PULSE 99
[2022-10-07 13:33] LABS: Influenza A, PCR Detected (NotDetected)
[2022-10-07 13:50] VITALS: BP 128/68; PULSE 97; RESP 18; TEMP 36.7; O2SAT 98
--- NOTE | 2022-10-13 14:42 | HMH.EDGENADL ---
Discharge Plan Disposition Patient Disposition: Home, Self-Care Condition: Good Prescriptions Prescriptions: No Action omeprazole 20 mg capsule,delayed release(DR/EC) 20 mg PO DAILY Label Comments: TAKE 1 CAPSULE BY MOUTH EVERY MORNING BEFORE BREAKFAST aspirin [Adult Low Dose Aspirin] 81 mg tablet,delayed release (DR/EC) 81 mg PO DAILY Qty: 30 5RF albuterol sulfate 90 mcg/actuation HFA aerosol inhaler See Rx Instructions .ROUTE .COMPLEX Qty: 18 4RF Dose Instruction: INHALE 2 PUFFS EVERY FOUR TO SIX HOURS NEEDED FOR SHORTNESS OF BREATH OR WHEEZING Rx Instructions: INHALE 2 PUFFS EVERY FOUR TO SIX HOURS NEEDED FOR SHORTNESS OF BREATH OR WHEEZING azithromycin 250 mg tablet See Rx Instructions PO .COMPLEX Qty: 6 0RF Rx Instructions: take 500 mg today (day 1), then 250 mg for 4 days (days 2-5) prednisone 20 mg tablet 20 mg PO BID 5 Days Qty: 10 0RF benzonatate 100 mg capsule 100 mg PO TID PRN (Reason: cough) Qty: 30 0RF ondansetron 4 mg tablet,disintegrating 4 mg PO Q8H PRN (Reason: nausea and vomiting) Qty: 30 0RF metoprolol succinate 100 mg tablet extended release 24 hr 100 mg PO DAILY Qty: 30 0RF fluticasone furoate-vilanterol 100-25 mcg/dose blister with device 1 inh INHALATION DAILY Qty: 60 2RF Referrals Follow up/Referrals: Silvestre Arana MD [Primary Care Provider] - See instructions Activity Restrictions/Add. Instructions Additional Instructions/Restrictions: Please follow-up with your primary care physician within the next 1 to 2 days. Please take Tylenol and ibuprofen for comfort. Please drink plenty of water and eat 3 balanced meals. Return if symptoms worsen or do not improve. Clinical Impressions Clinical Impression: Flu Stand Alone Forms Stand Alone Forms: Work/School Release Instructions Patient Instructions: Influenza Print Language Print Language: [place] Discharge ED Provider: Lucrecia Alfred Adult HPI General Chief complaint: Upper Respiratory Infection Stated complaint: SOA, Headache, fever, bodyaches Time Seen by Provider: 10/07/22 13:00 Mode of Arrival: Ambulatory Limitations: No Limitations Description of Symptoms (Recalled from ER Triage Doc. by RN): PT REPORTS COUGH, FEVER, CONGESTION, BODYACHES, HEADACHE AND SHORTNESS OF BREATH X 2 DAYS. HX OF ASTHMA History of Present Illness HPI narrative: Mr. Sullivan is 37 yo male w/ PMH for asthma presenting to the ED for non productive cough, fever and congestion. Patient also reports headache, body aches and dyspnea for 2d. No known sick contacts. No abdominal pain, bowel changes or urinary sx. Patient eating appropriately. Denies any chest pain, dizziness, or lightheadedness. Denies any nuchal rigidity. No focal neurological deficits. MD complaint: fever, cough, congestion, body aches Onset (ago): day(s) Related Data Home Medications Medication Instructions Recorded Confirmed omeprazole 20 mg capsule,delayed 20 mg PO DAILY 03/06/21 10/09/22 release Previous Rx's Medication Instructions Recorded aspirin 81 mg tablet,delayed 81 mg PO DAILY #30 tabs 03/06/21 release (Adult Low Dose Aspirin) metoprolol succinate 100 mg 100 mg PO DAILY #30 tabs 06/24/22 tablet,extended release 24 hr fluticasone furoate 100 1 inh inhalation DAILY Asthma #60 08/13/22 mcg-vilanterol 25 mcg/dose ea inhalation powder albuterol sulfate 90 mcg/actuation See Rx Instructions .Route 10/09/22 aerosol inhaler .COMPLEX #18 grams azithromycin 250 mg tablet See Rx Instructions PO .COMPLEX #6 10/09/22 tabs benzonatate 100 mg capsule 100 mg PO TID PRN cough #30 caps 10/09/22 ondansetron 4 mg disintegrating 4 mg PO Q8H PRN nausea and 10/09/22 tablet vomiting #30 tabs prednisone 20 mg tablet 20 mg PO BID 5 days #10 tabs 10/09/22 Allergies Allergy/AdvReac Type Severity Reaction Status Date / Time hydrocodone Allergy Verified 10/09/22 08:47 Sulfa (Sulfonamide All
== END 2022-10-07 13:50 | disposition home or self-care (01) ==
PROVIDERS: Emergency Provider Student in an Organized Health Care Education/Training Program; PCP Emergency Medicine
DX: J10.1 Influenza due to other identified influenza virus with other respiratory manifestations (principal); Z88.2 Allergy status to sulfonamides; Z88.6 Allergy status to analgesic agent; I10 Essential (primary) hypertension; J45.909 Unspecified asthma, uncomplicated; F19.11 Other psychoactive substance abuse, in remission
CPT/HCPCS: 71045; 94640; 99283; C9803; U0003; U0005

== ENCOUNTER 2023-02-10 17:20 | Emergency (ER) | payer BC, SELFPAY ==
[2023-02-10 17:30] VITALS: BP 136/86; PULSE 84; RESP 18; TEMP 37.1; O2SAT 98; BMI 31.6
--- NOTE | 2023-02-10 17:41 | EXP.UTC ---
Discharge Plan Disposition Patient Disposition: Home, Self-Care Condition: Good Prescriptions Prescriptions: New azithromycin [Zithromax Z-Ryan] 250 mg tablet See Rx Instructions .ROUTE .COMPLEX 5 Days Qty: 6 0RF Rx Instructions: For 250 mg dose pack: take 500 mg today (day 1), then 250 mg for 4 days (days 2-5) methylprednisolone [Medrol (Ryan)] 4 mg tablets,dose pack See Rx Instructions .Route .COMPLEX 6 Days Qty: 21 0RF Rx Instructions: taper pack; baclofen 5 mg tablet 5 mg PO TID PRN (Reason: muscle spasm) Qty: 12 0RF No Action omeprazole 20 mg capsule,delayed release(DR/EC) 20 mg PO DAILY Label Comments: TAKE 1 CAPSULE BY MOUTH EVERY MORNING BEFORE BREAKFAST aspirin [Adult Low Dose Aspirin] 81 mg tablet,delayed release (DR/EC) 81 mg PO DAILY Qty: 30 5RF albuterol sulfate 90 mcg/actuation HFA aerosol inhaler See Rx Instructions .ROUTE .COMPLEX Qty: 18 4RF Dose Instruction: INHALE 2 PUFFS EVERY FOUR TO SIX HOURS NEEDED FOR SHORTNESS OF BREATH OR WHEEZING Rx Instructions: INHALE 2 PUFFS EVERY FOUR TO SIX HOURS NEEDED FOR SHORTNESS OF BREATH OR WHEEZING azithromycin 250 mg tablet See Rx Instructions PO .COMPLEX Qty: 6 0RF Rx Instructions: take 500 mg today (day 1), then 250 mg for 4 days (days 2-5) prednisone 20 mg tablet 20 mg PO BID 5 Days Qty: 10 0RF benzonatate 100 mg capsule 100 mg PO TID PRN (Reason: cough) Qty: 30 0RF ondansetron 4 mg tablet,disintegrating 4 mg PO Q8H PRN (Reason: nausea and vomiting) Qty: 30 0RF metoprolol succinate 100 mg tablet extended release 24 hr 100 mg PO DAILY Qty: 30 0RF fluticasone furoate-vilanterol 100-25 mcg/dose blister with device 1 inh INHALATION DAILY Qty: 60 2RF Referrals Follow up/Referrals: Silvestre Arana MD [Primary Care Provider] - See instructions Activity Restrictions/Add. Instructions Additional Instructions/Restrictions: Take medication as prescribed Follow up with your Family Doctor if no improvement or any worsening of symptoms Over the counter Muscle rubs like biofreeze may help with muscle aches and pains Return if needed Straight to ER if any life threatening symptoms Clinical Impressions Clinical Impression: Sinusitis Instructions Patient Instructions: DI for Sinusitis, Sinusitis, DI for Muscle Spasm Discharge ED Provider: Caterina No [facility] General Stated complaint: sore throat,SOA, neck hurts Mode of Arrival: Ambulatory Source of Information: Patient Limitations: No Limitations Time Seen by Provider: 02/10/23 17:41 Description of Symptoms (Recalled from Triage Doc. by RN): PATIENT C/O NECK STIFFNESS, SORE THROAT, HEADACHE, AND HURTS TO BREATH X 2 DAYS HEENT Symptoms (Recalled from RN notes): Yes Resp Symptoms (Recalled from RN notes): No Skin Symptoms (Recalled from RN notes): No MS Symptoms (Recalled from RN notes): No Functional Status (Recalled from RN notes): WNL History of Present Illness Provider Complaint: Patient states that he has been having sinus congestion and pressure behind his eyes for several days that has continued to get worse and Patient states that for the last couple of days he has been having sore throat, muscle tightness/ache especially in his neck and hurts when he turns his head that goes down from behind left ear into shoulder area and makes it feel like he cant get a good breath at times States that he is not sure if he slept wrong or just feeling achy Related Data Home Medications Medication Instructions Recorded Confirmed omeprazole 20 mg capsule,delayed 20 mg PO DAILY 03/06/21 10/09/22 release Previous Rx's Medication Instructions Recorded aspirin 81 mg tablet,delayed 81 mg PO DAILY #30 tabs 03/06/21 release (Adult Low Dose Aspirin) metoprolol succinate 100 mg 100 mg PO DAILY #30 tabs 06/24/22 tablet,extended release 24 hr fluticasone furoate 100 1 inh inhalation DAILY Asthma #60 10
[2023-02-10 17:46] VITALS: BP 136/86; PULSE 84; RESP 18; TEMP 37.1; O2SAT 98
[2023-02-10 17:46] LABS: UTC Strep Screen (Rapid) Negative (Negative)
== END 2023-02-10 18:09 | disposition home or self-care (01) ==
PROVIDERS: Emergency Provider Nurse Practitioner; PCP Emergency Medicine
DX: J01.90 Acute sinusitis, unspecified (principal); M54.2 Cervicalgia; F17.210 Nicotine dependence, cigarettes, uncomplicated; I10 Essential (primary) hypertension
CPT/HCPCS: 87880; 99212; 99214; G0463

== ENCOUNTER → 2023-04-15 11:15 | Outpatient (CLI) | payer BC, SELFPAY ==
[2023-04-15 12:07] LABS: Basophils # 0.1 K/mm3 (0-0.2); Basophils % 0.6 % (0.1-2.0); Eosinophils # 0.2 K/mm3 (0.0-0.4); Eosinophils % 1.8 % (0.1-12.0); Hematocrit 45.9 % (42.0-52.0); Hemoglobin 15.4 g/dL (14.1-18.0); Lymphocytes # 2.2 K/mm3 (0.7-4.5); Lymphocytes % 26.8 % (10-50); Mean Corpuscular HGB Conc 33.6 g/dL (31.8-35.4); Mean Corpuscular Hemoglobin 29.7 pg (27.0-31.2); Mean Corpuscular Volume 88.5 fl (80-94); Mean Platelet Volume 8.4 fl (7.4-10.4); Monocytes # 0.5 K/mm3 (0.1-1.0); Monocytes % 5.5 % (1.7-9.3); Neutrophils # 5.5 K/mm3 (1.8-7.8); Neutrophils % 65.4 % (37.0-80.0); Platelet Count 216 K/mm3 (142-424); Red Blood Count 5.19 M/mm3 (4.60-6.20); Red Cell Distribution Width 13.6 % (11.5-17.5); White Blood Count 8.3 K/mm3 (4.8-10.8)
[2023-04-15 12:28] LABS: INR 0.97 (0.9-1.1); Prothrombin Time 10.5 seconds (10.1-12.5)
[2023-04-15 12:42] LABS: Alanine Aminotransferase 25 U/L (12-78); Albumin Level 4.4 g/dl (3.5-5.0); Albumin/Globulin Ratio 1.5 (1.1-1.8); Alkaline Phosphatase 88 U/L (38-126); Anion Gap 14.8 mEq/L (5-15); Aspartate Amino Transferase 31 U/L (17-59); Bilirubin,Total 0.4 mg/dl (0.2-1.3); Blood Urea Nitrogen 13 mg/dl (9-20); Calcium 9.3 mg/dl (8.4-10.2); Carbon Dioxide 29 mmol/L (22.0-30.0); Chloride 101 mmol/L (98-107); Estimated Glomerular Filt Rate 83 ml/min (>60); GFR (African American) 101 ML/MIN (>60); Globulin 2.9 g/dL (1.3-3.2); Glucose 95 mg/dl (74-100); Potassium 4.8 mmoL/L (3.5-5.1); Sodium 140 mmol/L (136-145); Total Protein,Serum 7.3 g/dl (6.3-8.2)
[2023-04-15 12:58] LABS: 25-OH Vitamin D, Total 47.2 ng/mL (30-100)
[2023-04-15 13:31] LABS: Vitamin B12 400 pg/mL (239-931)
[2023-04-16 10:46] LABS: AFP, Tumor Marker 1.9 ng/mL (0.0-6.9); Hep B Surface Ab, Qual Non Reactive (.); Hep Be Ag Negative (Negative)
[2023-04-16 11:17] LABS: Hepatitis Be Antibody Negative (Negative)
[2023-04-18 00:08] LABS: HBV IU/mL HBV DNA not detected IU/mL (.); Vitamin K1 0.32 ng/mL (0.10-2.20)
[2023-04-18 20:29] LABS: Vitamin E Alpha Tocopherol 8.2 mg/L (5.9-19.4); Vitamin E Gamma Tocopherol 1.9 mg/L (0.7-4.9)
[2023-04-19 00:06] LABS: Vitamin A 44.7 ug/dL (18.9-57.3)
[2023-05-21 00:18] LABS: Hepatitis B Surface Antigen Negative
== END ==
PROVIDERS: PCP Emergency Medicine; Visit Provider Nurse Practitioner Acute Care
DX: B19.10 Unspecified viral hepatitis B without hepatic coma (principal); E66.9 Obesity, unspecified; Z68.32 Body mass index [BMI] 32.0-32.9, adult
CPT/HCPCS: 36415; 80053; 82105; 82306; 82607; 83735; 84446; 84590; 84597; 85025; 85610; 86706; 86707; 87340; 87350; 87517

== ENCOUNTER 2023-05-11 20:21 | Emergency (ER) | payer BC, SELFPAY ==
--- NOTE | 2023-05-11 20:19 | ECG_ITS ---
APPROVED REPORT Exam: Resting ECG HR:90 bpm ECG Measurements Heart Rate 90 AXES PA 173 P 57 QRSd 112 QRS 62 QT 341 T 48 QTc 389 Conclusion SINUS RHYTHM INCOMPLETE RIGHT BUNDLE BRANCH BLOCK [90+ ms QRS DURATION, TERMINAL R IN V1/V2, 40+ ms S IN I/aVL/V4/V5/V6] BORDERLINE ECG UNCONFIRMED REPORT Electronically signed by : Rashid Moise MD 05/12/2023 14:02:11
[2023-05-11 20:21] VITALS: BP 156/86; PULSE 97; RESP 23; TEMP 36.8; O2SAT 97; BMI 32.1
--- NOTE | 2023-05-11 20:27 | XR_ITS ---
PROCEDURE INFORMATION: Exam: XR Chest Exam date and time: 05/11/2023 8:22 PM Age: 38 years old Clinical indication: Pain; Chest pressure; Additional info: Chest pain TECHNIQUE: Imaging protocol: Radiologic exam of the chest. Views: 2 views. COMPARISON: CR XR CHEST PORTABLE 10/07/2022 1:19 PM FINDINGS: Lungs: Unremarkable. No consolidation. Pleural spaces: Unremarkable. No pleural effusion. No pneumothorax. Heart/Mediastinum: Unremarkable. No cardiomegaly. Bones/joints: Unremarkable. IMPRESSION: No acute pulmonary findings.
[2023-05-11 20:30] LABS: Coronavirus 19, PCR Not Detected (NotDetected); Influenza A, PCR Not Detected (NotDetected); Influenza B, PCR Not Detected (NotDetected)
[2023-05-11 20:37] VITALS: BMI 32.1
[2023-05-11 20:37] LABS: Chloride 104 mmol/L (98-107); Potassium 3.7 mmoL/L (3.5-5.1); Sodium 141 mmol/L (136-145)
[2023-05-11 20:39] LABS: Basophils % 0.3 % (0.1-2.0); Eosinophils # 0.3 K/mm3 (0.0-0.4); Hematocrit 43.5 % (42.0-52.0); Hemoglobin 14.5 g/dL (14.1-18.0); Lymphocytes # 2.4 K/mm3 (0.7-4.5); Lymphocytes % 25.5 % (10-50); Mean Corpuscular HGB Conc 33.4 g/dL (31.8-35.4); Mean Corpuscular Hemoglobin 29.1 pg (27.0-31.2); Mean Corpuscular Volume 87.1 fl (80-94); Mean Platelet Volume 8.3 fl (7.4-10.4); Monocytes # 0.6 K/mm3 (0.1-1.0); Monocytes % 6.3 % (1.7-9.3); Neutrophils # 6.1 K/mm3 (1.8-7.8); Neutrophils % 64.8 % (37.0-80.0); Platelet Count 202 K/mm3 (142-424); Red Blood Count 4.99 M/mm3 (4.60-6.20); Red Cell Distribution Width 13.6 % (11.5-17.5); White Blood Count 9.5 K/mm3 (4.8-10.8)
[2023-05-11 20:40] LABS: Anion Gap 10.7 mEq/L (5-15); Blood Urea Nitrogen 15 mg/dl (9-20); Calcium 8.7 mg/dl (8.4-10.2); Carbon Dioxide 30 mmol/L (22.0-30.0); Creatinine Clearance Estimated 131 mL/min (50-200); Estimated Glomerular Filt Rate 67 ml/min (>60); GFR (African American) 81 ML/MIN (>60); Glucose 88 mg/dl (74-100)
--- NOTE | 2023-05-11 20:46 | CT_ITS ---
PROCEDURE INFORMATION: Exam: CTA Chest With Contrast Exam date and time: 05/11/2023 8:56 PM Age: 38 years old Clinical indication: Pain; Chest pressure; Additional info: Chest pain TECHNIQUE: Imaging protocol: Computed tomographic angiography of the chest with contrast. Exam focused on the arteries. 3D rendering (Not supervised by radiologist): MIP and/or 3D reconstructed images were created by the technologist. Radiation optimization: All CT scans at this facility use at least one of these dose optimization techniques: automated exposure control; mA and/or kV adjustment per patient size (includes targeted exams where dose is matched to clinical indication); or iterative reconstruction. Contrast material: ISOUVE; Contrast volume: 70 ml; Contrast route: INTRAVENOUS (IV); REPORTING DATA: Count of CT and Cardiac NM exams in prior 12 months: This patient has received 0 known CTs and 0 known cardiac nuclear medicine studies in the 12 months prior to the current study. COMPARISON: CT ANGIO CHEST 11/25/2020 4:25 AM FINDINGS: Pulmonary arteries: Normal. No pulmonary emboli. Aorta: Unremarkable. No aortic aneurysm. No aortic dissection. Lungs: Small lingular calcified granuloma. No focal airspace consolidation. Pleural spaces: Unremarkable. No pneumothorax. No pleural effusion. Heart: Unremarkable. No cardiomegaly. No pericardial effusion. Lymph nodes: Small calcified prevascular and left hilar lymph nodes. Gallbladder and bile ducts: Cholelithiasis without evidence of acute cholecystitis. Mild fatty infiltrative changes of the pancreas. Spleen: Coarse splenic calcification. Bones/joints: Unremarkable. No acute fracture. Soft tissues: Mild bilateral gynecomastia. Several left anterior chest wall surgical clips. IMPRESSION: No acute pulmonary arterial embolism or other acute pulmonary findings.
[2023-05-11 20:59] LABS: Alanine Aminotransferase 30 U/L (12-78); Albumin Level 4.3 g/dl (3.5-5.0); Alkaline Phosphatase 96 U/L (38-126); Aspartate Amino Transferase 38 U/L (17-59); Magnesium 1.9 mg/dl (1.6-2.3); Total Protein,Serum 6.8 g/dl (6.3-8.2)
[2023-05-11 21:03] LABS: Troponin I < 0.01 ng/ml (0.00-0.034)
--- NOTE | 2023-05-11 21:03 | HMH.EDSOB ---
Discharge Plan Disposition Patient Disposition: Home, Self-Care Prescriptions Prescriptions: New azithromycin [azithromycin] 250 mg tablet 250 mg PO DIRECTED Qty: 6 0RF Rx Instructions: Take two (2) tablets on day #1, then one (1) tablet day #2 thru #5 prednisone [prednisone] 20 mg tablet 20 mg PO BID Qty: 10 0RF No Action omeprazole 20 mg capsule,delayed release(DR/EC) 20 mg PO DAILY Patient Comments: TAKE 1 CAPSULE BY MOUTH EVERY MORNING BEFORE BREAKFAST aspirin [Adult Low Dose Aspirin] 81 mg tablet,delayed release (DR/EC) 81 mg PO DAILY Qty: 30 5RF albuterol sulfate 90 mcg/actuation HFA aerosol inhaler See Rx Instructions .ROUTE .COMPLEX Qty: 18 4RF Dose Instruction: INHALE 2 PUFFS EVERY FOUR TO SIX HOURS NEEDED FOR SHORTNESS OF BREATH OR WHEEZING Rx Instructions: INHALE 2 PUFFS EVERY FOUR TO SIX HOURS NEEDED FOR SHORTNESS OF BREATH OR WHEEZING azithromycin 250 mg tablet See Rx Instructions PO .COMPLEX Qty: 6 0RF Rx Instructions: take 500 mg today (day 1), then 250 mg for 4 days (days 2-5) prednisone 20 mg tablet 20 mg PO BID 5 Days Qty: 10 0RF benzonatate 100 mg capsule 100 mg PO TID PRN (Reason: cough) Qty: 30 0RF ondansetron 4 mg tablet,disintegrating 4 mg PO Q8H PRN (Reason: nausea and vomiting) Qty: 30 0RF metoprolol succinate 100 mg tablet extended release 24 hr 100 mg PO DAILY Qty: 30 0RF fluticasone furoate-vilanterol 100-25 mcg/dose blister with device 1 inh INHALATION DAILY Qty: 60 2RF azithromycin [Zithromax Z-Ryan] 250 mg tablet See Rx Instructions .ROUTE .COMPLEX 5 Days Qty: 6 0RF Rx Instructions: For 250 mg dose pack: take 500 mg today (day 1), then 250 mg for 4 days (days 2-5) methylprednisolone [Medrol (Ryan)] 4 mg tablets,dose pack See Rx Instructions .Route .COMPLEX 6 Days Qty: 21 0RF Rx Instructions: taper pack; baclofen 5 mg tablet 5 mg PO TID PRN (Reason: muscle spasm) Qty: 12 0RF Referrals Follow up/Referrals: Provider,Referral, MD [Primary Care Provider] - See instructions Clinical Impressions Clinical Impression: Acute bronchitis, Palpitation Stand Alone Forms Stand Alone Forms: Work/School Release Instructions Patient Instructions: DI for Shortness of Breath Discharge ED Provider: Sumit (ED)Silvestre Resp/SOB HPI General Chief Complaint: Shortness of Breath/Dyspnea Stated Complaint: CP Time Seen by Provider: 05/11/23 20:45 Mode of Arrival: Family Vehicle Source of Information: Patient and Medical Record Limitations: No Limitations Description of Symptoms (Recalled from ER Triage Doc. by RN): Pt c/o left chest pain tht radiates to his left arm. Denies any current pain. He also has been feeling weak, SOA, and fluttering in his chest. He does have a hx of palpitations and takes Metoprolol which he did already take today. He also c/o productive cough of yellow and clear mucous. Denies afever, chills, or n/v/d. History of Present Illness pt with episode of palpitation this am w/o chest pain or syncope - feels weak and has prod cough w/o hemoptysis MD Complaint: shortness of breath, cough and pain with inspiration Onset (ago): hour(s) Severity: moderate Consistency/Duration: intermittent Associated symptoms: palpitations Treatment prior to arrival: none Related Data Home oxygen amount: none Home Medications Medication Instructions Recorded Confirmed omeprazole 20 mg capsule,delayed 20 mg PO DAILY 03/06/21 10/09/22 release Previous Rx's Medication Instructions Recorded aspirin 81 mg tablet,delayed 81 mg PO DAILY #30 tabs 03/06/21 release (Adult Low Dose Aspirin) metoprolol succinate 100 mg 100 mg PO DAILY #30 tabs 06/24/22 tablet,extended release 24 hr fluticasone furoate 100 1 inh inhalation DAILY Asthma #60 08/13/22 mcg-vilanterol 25 mcg/dose ea inhalation powder albuterol sulfate 90 mcg/actuation See Rx Instructions .Route 1
[2023-05-11 21:04] LABS: C-Reactive Protein 9.2 mg/L (0-4)
--- NOTE | 2023-05-11 21:12 | PC.NURSE ---
CHECKED ON PT STATED NO COMPLAINTS AT THIS TIME, CALL LIGHT AT BS
[2023-05-11 21:20] LABS: T4 (Thyroxine) 9.1 ug/dl (5.53-11.0)
[2023-05-11 21:21] LABS: Erythrocyte Sedimentation Rate 17 mm/hr (0-15)
[2023-05-11 21:33] LABS: Thyroid Stimulating Hormone 3.54 uIU/mL (0.465-4.68)
[2023-05-11 21:36] VITALS: BP 134/84; PULSE 80; RESP 23; O2SAT 96
--- NOTE | 2023-05-11 21:44 | PC.NURSE ---
Dr. Arana at
[2023-05-11 21:50] VITALS: BP 134/84; PULSE 84; RESP 18; TEMP 36.8; O2SAT 96
[2023-05-11 22:00] VITALS: BP 151/97; PULSE 84; O2SAT 99
--- NOTE | 2023-05-11 22:09 | PC.NURSE ---
NURSE WAS AT BS WITH PT NOTHING NEEDED AT THIS TIME. CALL LIGHT AT BS
[2023-05-13 00:01] LABS: Bilirubin,Direct 0.3 mg/dl (0.0-0.4)
[2023-05-13 00:02] LABS: Bilirubin,Indirect 0.2 mg/dL (0.0-0.9); Bilirubin,Total 0.5 mg/dl (0.2-1.3)
== END 2023-05-11 22:16 | disposition home or self-care (01) ==
PROVIDERS: Emergency Provider Emergency Medicine
DX: R07.9 Chest pain, unspecified (principal); J20.9 Acute bronchitis, unspecified; R00.2 Palpitations; M79.602 Pain in left arm; I10 Essential (primary) hypertension; F17.210 Nicotine dependence, cigarettes, uncomplicated
CPT/HCPCS: 71046; 71275; 80048; 80076; 83735; 84436; 84443; 84484; 85025; 85651; 86140; 87636; 93005; 96361; 96374; 96375; 99285; J0696; Q9967

== ENCOUNTER → 2023-07-08 12:32 | Outpatient (CLI) | payer BC, SELFPAY ==
--- NOTE | 2023-07-08 13:31 | PC.NURSE ---
PFT and 6 Minute Walk Test completed without incident. Albuterol 0.083% given via HHN, per protocol, Pt tolerated tx well.
--- NOTE | 2023-07-08 13:51 | CT_ITS ---
FINAL REPORT TECHNIQUE: Axial images through the chest was performed by computed tomography using high-resolution technique supine inspiration and expiration and prone inspiration. Sagittal and coronal reformatted images were obtained and reviewed. CLINICAL HISTORY: soa ct high resoluton chest x 3 COMPARISON: 05/11/2023 FINDINGS: There is no evidence of mediastinal mass or adenopathy. The heart is normal in size. There is no pleural or pericardial effusion. There is no evidence of emphysema. No bronchiectasis is identified. There is no evidence of interstitial lung disease. Limited images of the abdomen demonstrate gallstones in the gallbladder. IMPRESSION: No evidence of interstitial lung disease. Cholelithiasis. Reviewed, Interpreted and Dictated by Roge Nelson III, MD Transcribed by Marcia Ch Authenticated and . [facility]
== END ==
LOC: RT 12:32
PROVIDERS: PCP Nurse Practitioner Family; Visit Provider Internal Medicine Pulmonary Disease
DX: R06.09 Other forms of dyspnea (principal); J84.9 Interstitial pulmonary disease, unspecified
CPT/HCPCS: 71250; 94060; 94618; 94726; 94729

== ENCOUNTER 2023-09-03 15:21 | Emergency (ER) | payer BC, SELFPAY ==
[2023-09-03 15:22] VITALS: BP 145/98; PULSE 86; RESP 16; TEMP 36.8; O2SAT 97; BMI 34.2
--- NOTE | 2023-09-03 15:38 | PC.NURSE ---
dr. chow at BS
[2023-09-03 15:45] VITALS: BP 136/94; PULSE 74; O2SAT 97
--- NOTE | 2023-09-03 15:45 | CA_ITS ---
FINAL REPORT CLINICAL HISTORY: intermittent ataxia; word finding difficulty, NAGY COMPARISON: None FINDINGS: Spectral and Doppler waveform evaluations of the left upper extremity was performed. The waveforms are triphasic throughout. No focal stenosis noted. The velocities are normal. IMPRESSION: No focal stenosis of the left upper extremity. Reviewed, Interpreted and Dictated by Roge Nelson III, MD Transcribed by Bridgett Arellano Authenticated and . [facility]
--- NOTE | 2023-09-03 15:45 | CT_ITS ---
PROCEDURE INFORMATION: Exam: CTA Neck With Contrast Exam date and time: 09/03/2023 4:29 PM Age: 38 years old Clinical indication: Pain; Headache; Additional info: Intermittent ataxia; Word finding difficulty, NAGY TECHNIQUE: Imaging protocol: Computed tomographic angiography of the neck with contrast. Exam focused on the cervical segments of the vasculature. 3D rendering (Not supervised by radiologist): MIP and/or 3D reconstructed images were created by the technologist. Radiation optimization: All CT scans at this facility use at least one of these dose optimization techniques: automated exposure control; mA and/or kV adjustment per patient size (includes targeted exams where dose is matched to clinical indication); or iterative reconstruction. Contrast material: ISOVUE 370; Contrast volume: 100 ml; Contrast route: INTRAVENOUS (IV); REPORTING DATA: Count of CT and Cardiac NM exams in prior 12 months: This patient has received 2 known CTs and 0 known cardiac nuclear medicine studies in the 12 months prior to the current study. COMPARISON: CT ANGIO CHEST PE PROTOCOL 05/11/2023 8:56 PM FINDINGS: Right common carotid artery: No stenosis. No dissection or occlusion. Right internal carotid artery: No stenosis of the extracranial segment. No dissection or occlusion. Right external carotid artery: No occlusion or stenosis of the origin. Left common carotid artery: No stenosis. No dissection or occlusion. Left internal carotid artery: No stenosis of the extracranial segment. No dissection or occlusion. Left external carotid artery: No occlusion or stenosis of the origin. Right vertebral artery: The right vertebral artery is dominant, patent. No dissection. 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 No dissection. Soft tissues: Normal. No significant soft tissue swelling. Bones/joints: No acute fracture. IMPRESSION: 1. No acute vascular findings in the neck. 2. 0% right ICA stenosis. 3. 0% left ICA stenosis. 4. The vertebral arteries are patent without stenoses. REFERENCES: NASCET CRITERIA. The degree of stenosis in the cervical segment of the internal carotid artery is based on NASCET criteria. Normal is no stenosis. Mild is less than 50% stenosis. Moderate is 50-69% stenosis. Severe is 70% to 99% stenosis. Total occlusion is no detectable patent lumen.
--- NOTE | 2023-09-03 15:45 | CT_ITS ---
PROCEDURE INFORMATION: Exam: CTA Head With Contrast, Arteriography Exam date and time: 09/03/2023 4:29 PM Age: 38 years old Clinical indication: Pain; Headache; Additional info: Intermittent ataxia; Word finding difficulty, NAGY TECHNIQUE: Imaging protocol: Computed tomographic angiography of the head with contrast. Exam focused on the arteries. 3D rendering (Not supervised by radiologist): MIP and/or 3D reconstructed images were created by the technologist. Radiation optimization: All CT scans at this facility use at least one of these dose optimization techniques: automated exposure control; mA and/or kV adjustment per patient size (includes targeted exams where dose is matched to clinical indication); or iterative reconstruction. Contrast material: ISOVUE 370; Contrast volume: 100 ml; Contrast route: INTRAVENOUS (IV); REPORTING DATA: Count of CT and Cardiac NM exams in prior 12 months: This patient has received 2 known CTs and 0 known cardiac nuclear medicine studies in the 12 months prior to the current study. COMPARISON: CT HEAD/BRAIN WO CON 09/03/2023 4:27 PM FINDINGS: ANTERIOR CIRCULATION: Right internal carotid artery: Intracranial segment is patent with no significant stenosis. No aneurysm. Right middle cerebral artery: No occlusion or significant stenosis. No aneurysm. Right anterior cerebral artery: No occlusion or significant stenosis. No aneurysm. Left internal carotid artery: Intracranial segment is patent with no significant stenosis. No aneurysm. Left middle cerebral artery: No occlusion or significant stenosis. No aneurysm. Left anterior cerebral artery: No occlusion or significant stenosis. No aneurysm. POSTERIOR CIRCULATION: Right vertebral artery: The right vertebral artery is dominant, patent. 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 Basilar artery: No occlusion or significant stenosis. No aneurysm. Right posterior cerebral artery: No occlusion or significant stenosis. No aneurysm. Left posterior cerebral artery: No occlusion or significant stenosis. No aneurysm. Brain: No definite mass, mass effect, or midline shift. Cerebral ventricles: No ventriculomegaly. Bones/joints: Unremarkable. No acute fracture. Soft tissues: Unremarkable. IMPRESSION: No proximal intracranial arterial occlusion or stenosis seen.
--- NOTE | 2023-09-03 15:45 | CT_ITS ---
PROCEDURE INFORMATION: Exam: CT Head Without Contrast Exam date and time: 09/03/2023 4:27 PM Age: 38 years old Clinical indication: Pain; Headache not specified; Additional info: Intermittent ataxia; Word finding difficulty, NAGY TECHNIQUE: Imaging protocol: Computed tomography of the head without contrast. Radiation optimization: All CT scans at this facility use at least one of these dose optimization techniques: automated exposure control; mA and/or kV adjustment per patient size (includes targeted exams where dose is matched to clinical indication); or iterative reconstruction. REPORTING DATA: Count of CT and Cardiac NM exams in prior 12 months: This patient has received 2 known CTs and 0 known cardiac nuclear medicine studies in the 12 months prior to the current study. COMPARISON: CT HEAD/BRAIN WO CON 03/02/2021 12:35 PM FINDINGS: Brain: No hemorrhage or definite edema. An area apparent hypodensity in the left cerebellum around axial image 10 of series 3 appears fairly linear, probably related to streak/beam hardening artifact. No hemorrhage. Cerebral ventricles: No ventriculomegaly. Paranasal sinuses: Visualized sinuses are unremarkable. No fluid levels. Mastoid air cells: Visualized mastoid air cells are well aerated. Bones/joints: Unremarkable. No acute fracture. Soft tissues: Unremarkable. IMPRESSION: No acute intracranial abnormality seen.
--- NOTE | 2023-09-03 15:45 | PC.NURSE ---
Allergy bracelet placed on patients wrist.
--- NOTE | 2023-09-03 15:51 | HMH.EDGENADL ---
Discharge Plan Disposition Chief Complaint: Headache Prescriptions Prescriptions: No Action omeprazole 20 mg capsule,delayed release(DR/EC) 20 mg PO DAILY Patient Comments: TAKE 1 CAPSULE BY MOUTH EVERY MORNING BEFORE BREAKFAST aspirin [Adult Low Dose Aspirin] 81 mg tablet,delayed release (DR/EC) 81 mg PO DAILY Qty: 30 5RF albuterol sulfate 90 mcg/actuation HFA aerosol inhaler See Rx Instructions .ROUTE .COMPLEX Qty: 18 4RF Dose Instruction: INHALE 2 PUFFS EVERY FOUR TO SIX HOURS NEEDED FOR SHORTNESS OF BREATH OR WHEEZING Rx Instructions: INHALE 2 PUFFS EVERY FOUR TO SIX HOURS NEEDED FOR SHORTNESS OF BREATH OR WHEEZING fluticasone propionate [Flonase Allergy Relief] 50 mcg/actuation spray,suspension 2 spray intranasal DAILY 90 Days Qty: 16 2RF Rx Instructions: administer into each nostril Trelegy Ellipta 200-62.5-25 mcg blister with device 1 inh inhalation DAILY 90 Days Qty: 90 3RF montelukast [Singulair] 10 mg tablet 10 mg PO DAILY Qty: 90 2RF ipratropium-albuterol 0.5 mg-3 mg(2.5 mg base)/3 mL solution for nebulization 3 ml inhalation Q6H PRN (Reason: shortness of breath or wheezing) Qty: 90 3RF metoprolol succinate 100 mg tablet extended release 24 hr See Rx Instructions .ROUTE .COMPLEX Qty: 90 3RF Dose Instruction: TAKE 1 TABLET BY MOUTH DAILY Rx Instructions: TAKE 1 TABLET BY MOUTH DAILY Referrals Follow up/Referrals: Silvestre Arana MD [Primary Care Provider] - See instructions Vonnie Michel MD [Staff Physician] - See instructions Activity Restrictions/Add. Instructions Additional Instructions/Restrictions: Given the constellation of symptoms that you have been having including headaches with occasional neurologic symptoms also some chronic chest pain and shortness of breath without any ongoing symptoms right now there made significant diagnostic uncertainty. Please follow-up with the neurologist as instructed and see Dr. Kati Carrasquillo tomorrow at Dr. Grant's office at 10:30 AM for further evaluation. Clinical Impressions Clinical Impression: Headache, Chest pain, Dyspnea Discharge ED Provider: Meagan Chapman General Adult [facility] General Chief complaint: Headache Stated complaint: h/a Time Seen by Provider: 09/03/23 15:35 Mode of Arrival: Ambulatory Source of Information: Patient Limitations: No Limitations Description of Symptoms (Recalled from ER Triage Doc. by RN): Pt reports headaches at night for approx 2 weeks. Reports no headache when going to sleep, pain from headache will wake him up in the middle of the night. Pt reports no headaches during the day. Pt reports x3 days L eye blurry vision upon waking up, states takes approx 20 minutes for vision to clear. Pt reports 2 days ago he had trouble word finding after waking up in the middle fot he night with headache. Pt reports lastnight he vomited r/t pain from headache. History of Present Illness HPI narrative: Patient is a 38-year-old male presents today with headache for the last several weeks and other neurologic symptoms as well. States that before the last few weeks he has no history of any significant headaches. He states during the day he feels good but at night he has significant left-sided headaches that are retro-orbital sometimes associated with vision changes also has had some word finding difficulty where he states he feels like my tongue is bigger than it should be and also has severe ataxia where he feels like he is falling significantly. States the headache and the neurologic symptoms are so severe that he feels like he is drunk and that he cannot drive during them. Currently he has no symptoms at all. 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 Has some chronic left upper extremity and left shoulder discomfort but has not recently had any paresthesias out of the ordinary for himself
[2023-09-03 16:12] LABS: Basophils % 0.4 % (0.1-2.0); Eosinophils # 0.2 K/mm3 (0.0-0.4); Eosinophils % 2.2 % (0.1-12.0); Hematocrit 43.5 % (42.0-52.0); Hemoglobin 15.5 g/dL (14.1-18.0); Lymphocytes # 1.9 K/mm3 (0.7-4.5); Lymphocytes % 23.3 % (10-50); Mean Corpuscular HGB Conc 35.6 g/dL (31.8-35.4); Mean Corpuscular Volume 89.8 fl (80-94); Mean Platelet Volume 8.5 fl (7.4-10.4); Monocytes # 0.5 K/mm3 (0.1-1.0); Monocytes % 5.9 % (1.7-9.3); Neutrophils # 5.5 K/mm3 (1.8-7.8); Neutrophils % 68.2 % (37.0-80.0); Platelet Count 178 K/mm3 (142-424); Red Blood Count 4.84 M/mm3 (4.60-6.20); Red Cell Distribution Width 13.8 % (11.5-17.5); White Blood Count 8.1 K/mm3 (4.8-10.8)
[2023-09-03 16:16] LABS: Alanine Aminotransferase 32 U/L (12-78); Albumin Level 4.8 g/dl (3.5-5.0); Albumin/Globulin Ratio 1.5 (1.1-1.8); Alkaline Phosphatase 82 U/L (38-126); Anion Gap 11.9 mEq/L (5-15); Aspartate Amino Transferase 37 U/L (17-59); Bilirubin,Total 0.4 mg/dl (0.2-1.3); Blood Urea Nitrogen 13 mg/dl (9-20); Calcium 9.3 mg/dl (8.4-10.2); Carbon Dioxide 28 mmol/L (22.0-30.0); Chloride 104 mmol/L (98-107); Creatinine Clearance Estimated 136 mL/min (50-200); Estimated Glomerular Filt Rate 67 ml/min (>60); GFR (African American) 81 ML/MIN (>60); Globulin 3.2 g/dL (1.3-3.2); Glucose 103 mg/dl (74-100); Potassium 3.9 mmoL/L (3.5-5.1); Sodium 140 mmol/L (136-145)
--- NOTE | 2023-09-03 17:30 | PC.NURSE ---
Dr Chapman at bedside discussing care and imaging results.
--- NOTE | 2023-09-03 17:41 | ECG_ITS ---
APPROVED REPORT Exam: Resting ECG HR:67 bpm ECG Measurements Heart Rate 67 AXES PA 168 P 58 QRSd 112 QRS 63 QT 396 T 56 QTc 411 Conclusion SINUS RHYTHM WITH SINUS ARRHYTHMIA MODERATE INTRAVENTRICULAR CONDUCTION DELAY [110+ ms QRS DURATION] BORDERLINE ECG UNCONFIRMED REPORT Electronically signed by : Rashid Moise MD 09/04/2023 21:40:22
[2023-09-03 17:50] VITALS: BP 140/73; PULSE 72; RESP 20; TEMP 36.7; O2SAT 98
[2023-09-03 18:05] LABS: C-Reactive Protein 12.6 mg/L (0-4)
[2023-09-03 18:30] LABS: Erythrocyte Sedimentation Rate 13 mm/hr (0-15)
== END 2023-09-03 17:51 | disposition home or self-care (01) ==
PROVIDERS: Emergency Provider Student in an Organized Health Care Education/Training Program; PCP Emergency Medicine
DX: G44.89 Other headache syndrome (principal); R07.89 Other chest pain; R06.02 Shortness of breath; F17.210 Nicotine dependence, cigarettes, uncomplicated; J84.9 Interstitial pulmonary disease, unspecified; I10 Essential (primary) hypertension
CPT/HCPCS: 70450; 70496; 70498; 80053; 85025; 85651; 86140; 93005; 93931; 96360; 99285; Q9967

== ENCOUNTER → 2023-09-09 07:04 | Outpatient (CLI) | payer BC, SELFPAY ==
--- NOTE | 2023-09-09 07:05 | NM_ITS ---
APPROVED REPORT Exam: Nuclear Stress Test Indication: chest pain..soa..palpitations..fatigue..family hx..high bp..tobacco use Patient Location: Outpatient Stress Tech: Hodan Bahena [place] Tech:Alka Mahajan, ARRT RT(R)(N) Ht: 6 ft 2 in Wt: 264 lbs HR: 84 bpm BP: 128/88 mmHg BSA: 2.45 m2 Rhythm: NSR TID: 1.09 BMI: 33.8 History: chest pain..soa..palpitations..fatigue..family hx..high bp..tobacco use Procedure: Patient exercised on Giovanny protocol 9:04 minutes and sec, resting heart rate 84 bpm, resting blood pressure 128/88 mmHg, with exercise maximum heart rate achived was 144 bpm which is 80 % of the maximum predicted heart rate and blood pressure was 176/94 mmHg. Test was stopped due to fatigue. Patient has Average exercise capacity, achieved 10.1 METs of workload on treadmill, the blood pressure response to exercise was Normal. Cardiac Stress and Resting SPECT Images: Cardiac Stress and Resting SPECT images were obtained using technetium 99m Myoview 32.4 mCi stress and 10.45 mCi at rest. Suboptimal stress test due to inability to achieve target HR at peak stress. Resting and stress imaging in supine and prone positions demonstrate medium sized, moderate, partially reversible perfusion defect in the basal to mid inferior LV wall. Gated imaging demonstrates low normal global LV systolic function. There is mild hypokinesis of the basal inferior LV wall. LVEF is calculated at 50%. Conclusion: Suboptimal stress test due to inability to achieve target HR at peak stress. Medium sized, moderate, partially reversible perfusion defect in the basal to mid inferior LV wall. Findings are suggestive of partial reversible ischemia. Gated imaging demonstrates low normal global LV systolic function. There is mild hypokinesis of the basal inferior LV wall. LVEF is calculated at 50%. Electronically signed by : Kati Sanchez MD 09/10/2023 14:49:23
[2023-09-09 07:50] LABS: Basophils % 0.5 % (0.1-2.0); Eosinophils # 0.2 K/mm3 (0.0-0.4); Eosinophils % 2.6 % (0.1-12.0); Lymphocytes # 1.5 K/mm3 (0.7-4.5); Lymphocytes % 21.3 % (10-50); Mean Corpuscular HGB Conc 36.3 g/dL (31.8-35.4); Mean Corpuscular Hemoglobin 32.8 pg (27.0-31.2); Mean Corpuscular Volume 90.4 fl (80-94); Mean Platelet Volume 8.1 fl (7.4-10.4); Monocytes # 0.6 K/mm3 (0.1-1.0); Monocytes % 7.7 % (1.7-9.3); Neutrophils # 4.9 K/mm3 (1.8-7.8); Neutrophils % 67.9 % (37.0-80.0); Platelet Count 172 K/mm3 (142-424); Red Blood Count 4.87 M/mm3 (4.60-6.20); Red Cell Distribution Width 13.7 % (11.5-17.5); White Blood Count 7.2 K/mm3 (4.8-10.8)
[2023-09-09 08:09] LABS: Alanine Aminotransferase 27 U/L (12-78); Albumin Level 4.5 g/dl (3.5-5.0); Alkaline Phosphatase 85 U/L (38-126); Aspartate Amino Transferase 31 U/L (17-59); Bilirubin,Direct 0.1 mg/dl (0.0-0.4); Bilirubin,Indirect 0.5 mg/dL (0.0-0.9); Bilirubin,Total 0.6 mg/dl (0.2-1.3); Bilirubin,Unconjugated 0.4 mg/dL (0.0-1.1); Chol/HDL Ratio 6.3 (1-3.5); Cholesterol 158 mg/dl (140-200); HDL Cholesterol 25 mg/dl (40-60); Total Protein,Serum 7.4 g/dl (6.3-8.2); Triglycerides 209 mg/dl (30-150); VLDL Cholesterol 42 mg/dL (0-40)
[2023-09-09 08:16] LABS: C-Reactive Protein 8.2 mg/L (0-4)
[2023-09-09 08:21] LABS: Direct LDL Cholesterol 94.59 mg/dL (100-129)
[2023-09-09 08:27] LABS: Free T4 (Free Thyroxine) 1.03 ng/dl (0.78-2.19)
[2023-09-09 08:40] LABS: Thyroid Stimulating Hormone 2.76 uIU/mL (0.465-4.68)
--- NOTE | 2023-09-09 09:15 | CA_ITS ---
APPROVED REPORT EXAM: Comprehensive 2D, Doppler, and color-flow Echocardiogram [employer]ion Repairer: Elsy Lockett RVT Ht: 6 ft 1 in Wt: 261lbs BSA: 2.41 BP: 160/107 mmHg Indications: CP,SOA,PALPS,SMOKER,FATIGUE,HX IV DRUG USE,HX COCAINE USE 2D Dimensions LVOT 2.23 cm (M/F) 1.5-2.5 LA Volume 43.60 mL LA Volume Index 18.09 mL/m2 (M/F) 16-34 M-Mode Dimensions RVDd 2.38 cm (0.9-2.6) LA Diam 3.93 cm (1.9-4.0) LVDd 6.12 cm (3.5-5.7) Ao Diam 3.30 cm (2.0-3.7) LVDs 4.34 cm (3.5-5.7) IVSd 1.03 cm (0.6-1.1) PWd 0.79 cm (0.6-1.1) EF (Teich) 54.90% FS 29.10% EDV (Teich) 188.30 mL TAPSE 2.10 (<1.7) ESV (Teich) 84.90 mL LV Diastology E Decel Time 203.00 (160-240 msec) E/A Ratio 1.2 MED E' 6.50 (< 7 cm/sec) E'/MED E' Ratio 10.49 (>14) LAT E' 12.40 (<10 cm/sec) E/LAT E' Ratio 5.50 (>14) Aortic Valve LVOT Max 114.00 (70-110 cm/s) LVOT VTI 23.26 cm AoV Peak Baltazar. 120.00 (50-130 cm/s) AO Peak GR. 5.80 mmHg AO Mean GR. 2.90 (<5 mmHg) AO VTI 23.12 (18-25 cm) SHYANN (VTI) 3.93 (2.5-4.5 cm2) Mitral Valve MV E Max Baltazar. 68.00 (40-130 cm/s) MV A Velocity 58.00 (40-130 cm/s) E/A Ratio 1.17 MV Decel. Time 203.00 (160-240 ms) MV PHT 60.00 ms Pulmonary Valve PV Peak Velocity 78.00 (50-150 cm/s) Left Ventricle The left ventricle is normal size. The left ventricular systolic function is normal. The left ventricular ejection fraction is within the normal range. There is normal left ventricular wall thickness. There is normal LV segmental wall motion. The left ventricular diastolic function is normal. LVEF is 55%. Right Ventricle The right ventricle is normal size. The right ventricular systolic function is normal. Atria The left atrium size is normal. The right atrium size is normal. There is no Doppler evidence of interatrial shunt. Aortic Valve The aortic valve is normal in structure. There is no aortic valvular stenosis. No aortic regurgitation is present. Mitral Valve The mitral valve is normal in structure. No evidence of mitral valve stenosis. Mild mitral regurgitation. Tricuspid Valve The tricuspid valve leaflets are thin and pliable. Trace tricuspid regurgitation. There is insufficient TR jet to estimate RVSP. Pulmonic Valve The pulmonary valve is normal in structure. Trace pulmonic regurgitation. Great Vessels The aortic root is normal in size. The ascending aorta is normal in size. IVC is normal in size and collapses >50% with inspiration. Pericardium There is no pericardial effusion. Other Information Study Quality: Fair Conclusion Normal biventricular systolic function. Mild MR. Electronically signed by : Kati Sanchez MD 09/12/2023 19:12:42
[2023-09-09 09:49] LABS: Hemoglobin A1C 4.9 % (4.0-6.0)
--- NOTE | 2023-09-09 10:01 | CA_ITS ---
APPROVED REPORT Exam: Exercise Treadmill Technologist: Hodan Bahena Ht: 6 ft 2 in Wt: 264 lbs BSA: 2.45 m2 HR: 67 bpm BP: 128/88 mmHg Rhythm: NSR Indications: Chest pain, dyspnea Stress Test Details Test: Giovanny HR Resting HR: 84 bpm Max Heart Rate (APMHR): 180 bpm Max HR Achieved: 144 bpm Target HR (85% APMHR): 153 bpm % of APMHR: 80 Recovery HR: 92 bpm HR response to stress: Blunted HR response to stress BP Resting BP: 128.0/88.0 mmHg Max BP: 176.0/94.0 mmHg Recovery BP: 130.0/86.0 mmHg BP response to stress: Normal blood pressure response to stress. ECG Resting ECG: Sinus rhythm Stress ECG: < 0.[address] depression Arrhythmia: PVCs Recovery ECG: Return to baseline within 3 minutes of recovery Recovery Arrhythmia: PVCs Clinical Exercise duration: 09:04 min Highest Stage Achieved: Exercise capacity: 10.1 METs Overall Exercise Capacity for Age: Average Stress ECG Conclusion This is a suboptimal stress test due to inability to achieve target HR. The patient was able to exercise for a total of 9 minutes, 04 seconds. He achieved a total of 10.1 METS. He has average exercise capacity compared to age and sex matched peers. He has normal BP, but blunted HR, response to exercise. Symptoms: Dizziness, chest pain Arrhythmias/Ectopy: PVC ST-T Changes: Less than [address] depression Conclusion: Suboptimal and nondiagnostic stress test due to inability to achieve target HR. No evidence of ischemia at the level of HR achieved. Myoview images reported separately. Test Summary REST . . . . . . . Sitting REST 05:46 0.0 0.0 84 . 128/ 88 . . Stage 1 01:00 10.0 1.7 95 . . . . Stage 1 02:00 10.0 1.7 104 . . . . Stage 1 03:00 10.0 1.7 104 . 150/ 82 . . Stage 2 01:00 12.0 2.5 110 . . . . Stage 2 02:00 12.0 2.5 113 . . . . Stage 2 03:00 12.0 2.5 117 . 164/ 84 . . Stage 3 01:00 14.0 3.4 130 . . . . Stage 3 02:00 14.0 3.4 135 . . . . Stage 3 03:00 14.0 3.4 141 . 170/ 90 . . Stage 4 00:04 16.0 4.2 141 . . . Stop exercise at 09:04 RECOVERY 01:00 0.0 0.0 133 . . . . RECOVERY 02:00 0.0 0.0 116 . . . . RECOVERY 03:00 0.0 0.0 100 . 176/ 94 . . RECOVERY 04:00 0.0 0.0 93 . 156/ 91 . . RECOVERY 05:00 0.0 0.0 92 . 156/ 91 . . RECOVERY 06:00 0.0 0.0 85 . 137/ 84 . . RECOVERY 07:00 0.0 0.0 94 . 137/ 84 . . RECOVERY 07:33 0.0 0.0 100 . 130/ 86 . . Electronically signed by : Kati Sanchez MD 09/10/2023 14:46:38
[2023-09-13 21:22] LABS: D001-IgE D pteronyssinus <0.10 kU/L (Class 0); D002-IgE D farinae <0.10 kU/L (Class 0); E001-IgE Cat Dander <0.10 kU/L (Class 0); E005-IgE Dog Dander <0.10 kU/L (Class 0); E072-IgE Mouse Urine <0.10 kU/L (Class 0); G002-IgE Bermuda Grass <0.10 kU/L (Class 0); G006-IgE Timothy Grass <0.10 kU/L (Class 0); I006-IgE Cockroach, German <0.10 kU/L (Class 0); Immunoglobulin E, Total 37 IU/mL (6-495); M001-IgE Penicillium chrysogen <0.10 kU/L (Class 0); M002-IgE Cladosporium herbarum <0.10 kU/L (Class 0); M003-IgE Aspergillus fumigatus <0.10 kU/L (Class 0); M006-IgE Alternaria alternata <0.10 kU/L (Class 0); T001-IgE Maple/Box Elder <0.10 kU/L (Class 0); T003-IgE Common Silver Birch <0.10 kU/L (Class 0); T006-IgE Cedar, Mountain <0.10 kU/L (Class 0); T007-IgE Oak, White <0.10 kU/L (Class 0); T008-IgE Elm, American <0.10 kU/L (Class 0); T010-IgE Walnut <0.10 kU/L (Class 0); T011-IgE Maple Leaf Sycamore <0.10 kU/L (Class 0); T014-IgE Cottonwood <0.10 kU/L (Class 0); T015-IgE Ash, White <0.10 kU/L (Class 0); T022-IgE Pecan, Hickory <0.10 kU/L (Class 0); T070-IgE White Mulberry <0.10 kU/L (Class 0); W001-IgE Ragweed, Short <0.10 kU/L (Class 0); W011-IgE Thistle, Russian <0.10 kU/L (Class 0); W014-IgE Pigweed, Common <0.10 kU/L (Class 0); W018-IgE Sheep Sorrel <0.10 kU/L (Class 0)
[2023-09-15 09:25] LABS: Antinuclear Antibodies (ANA) Negative
== END ==
LOC: RAD 07:05
PROVIDERS: Internal Medicine Pulmonary Disease; Nurse Practitioner; PCP Emergency Medicine; Visit Provider Internal Medicine
DX: R06.09 Other forms of dyspnea; R07.9 Chest pain, unspecified; R07.89 Other chest pain; R00.2 Palpitations; I10 Essential (primary) hypertension; R05.9 Cough, unspecified; R51.9 Headache, unspecified; R94.31 Abnormal electrocardiogram [ECG] [EKG]; J84.9 Interstitial pulmonary disease, unspecified; J45.909 Unspecified asthma, uncomplicated; I45.2 Bifascicular block; F17.200 Nicotine dependence, unspecified, uncomplicated
CPT/HCPCS: 36415; 78452; 80061; 80076; 82785; 83036; 84439; 84443; 85025; 86003; 86038; 86140; 86225; 86235; 93017; 93306; A9502

== ENCOUNTER 2023-10-09 07:54 | Day surgery (SDC) | payer BC, SELFPAY ==
[2023-10-09] VITALS (17 sets, daily range): BP systolic 102–142; BP diastolic 53–85; PULSE 57–90; RESP 17–18; TEMP 37; O2SAT 95–100; BMI 34.9
--- NOTE | 2023-10-09 07:17 | IR_ITS ---
APPROVED REPORT Patient Location: Outpatient Domestic Cleaner: ROBIN Brown RT (R) PROCEDURES Left heart catheterization Left ventriculogram Selective coronary angiogram INDICATION Angina pectoris, Abnormal Myoview, Informed consent was obtained prior to the procedure. COMPLICATIONS None Estimated Blood Loss: Less than 10 mls TECHNIQUE One percent lidocaine used to anesthetize the right anterior aspect of the wrist. The right radial artery was accessed via the Seldinger technique. A 6 [place] sheath was placed in the right radial artery. 2.5 mg of Verapamil, 800 mcg of nitroglycerin, 1mg Lidocaine and 5000 U Heparin were given through the arterial sheath. The papa catheter was also used to perform left heart catheterization, left ventriculogram and selective coronary angiogram. At the end of the procedure the sheath was removed good hemostasis was achieved using Traclet band, patient was transferred to the postop holding area in stable condition. ANGIOGRAPHIC RESULTS The left main artery Normal The left anterior descending artery Normal The circumflex artery Normal The right coronary artery Dominant normal The VENEGAS ventriculogram reveals Normal 65% The left ventricular end-diastolic pressure 10 mmHg IMPRESSION Normal coronary arteries Normal ejection fraction Normal left ventricular end-diastolic pressure PLAN 1. Continue medical management Electronically signed by : Earnest Grant MD 10/09/2023 10:52:03
[2023-10-09 08:24] LABS: Basophils % 0.3 % (0.1-2.0); Eosinophils # 0.2 K/mm3 (0.0-0.4); Eosinophils % 2.3 % (0.1-12.0); Hematocrit 42.8 % (42.0-52.0); Hemoglobin 15.3 g/dL (14.1-18.0); Lymphocytes # 1.6 K/mm3 (0.7-4.5); Lymphocytes % 20.2 % (10-50); Mean Corpuscular HGB Conc 35.7 g/dL (31.8-35.4); Mean Corpuscular Hemoglobin 31.5 pg (27.0-31.2); Mean Corpuscular Volume 88.1 fl (80-94); Mean Platelet Volume 7.4 fl (7.4-10.4); Monocytes # 0.4 K/mm3 (0.1-1.0); Monocytes % 5.1 % (1.7-9.3); Neutrophils # 5.6 K/mm3 (1.8-7.8); Neutrophils % 72.2 % (37.0-80.0); Platelet Count 197 K/mm3 (142-424); Red Blood Count 4.85 M/mm3 (4.60-6.20); Red Cell Distribution Width 13.5 % (11.5-17.5); White Blood Count 7.8 K/mm3 (4.8-10.8)
[2023-10-09 08:26] LABS: Chloride 106 mmol/L (98-107); Potassium 3.9 mmoL/L (3.5-5.1); Sodium 138 mmol/L (136-145)
[2023-10-09 08:29] LABS: Anion Gap 9.9 mEq/L (5-15); Blood Urea Nitrogen 13 mg/dl (9-20); Calcium 8.6 mg/dl (8.4-10.2); Carbon Dioxide 26 mmol/L (22.0-30.0); Creatinine Clearance Estimated 152 mL/min (50-200); Estimated Glomerular Filt Rate 74 ml/min (>60); GFR (African American) 90 ML/MIN (>60); Glucose 110 mg/dl (74-100)
== END 2023-10-09 14:15 | disposition home or self-care (01) ==
PROVIDERS: PCP Emergency Medicine; Visit Provider Internal Medicine
DX: I20.89 Other forms of angina pectoris (principal); R94.39 Abnormal result of other cardiovascular function study; F17.210 Nicotine dependence, cigarettes, uncomplicated; Z79.899 Other long term (current) drug therapy; R94.31 Abnormal electrocardiogram [ECG] [EKG]; I10 Essential (primary) hypertension
CPT/HCPCS: 80048; 85025; 93458; 99152; C1725; C1760; C1769; J1644; Q9967

== ENCOUNTER 2023-12-11 15:59 | Outpatient (CLI) | payer OTHER, SELFPAY ==
--- NOTE | 2023-12-11 16:01 | XR_ITS ---
FINAL REPORT CLINICAL HISTORY: chest congestion, dyspnea smoker x 26 yrs COMPARISON: 10/07/2022 FINDINGS: 2 views of the chest were obtained . The heart is normal in size. The mediastinum is within normal limits. The lungs are clear. There is no pneumothorax. Osseous structures are unremarkable. IMPRESSION: No acute cardiopulmonary process. Reviewed, Interpreted and Dictated by Roge Nelson III, MD Transcribed by Alayna Neff Authenticated and [facility]
== END 2023-12-11 23:59 ==
LOC: RAD 16:00
PROVIDERS: Visit Provider Student in an Organized Health Care Education/Training Program
DX: R06.00 Dyspnea, unspecified (principal); R09.89 Other specified symptoms and signs involving the circulatory and respiratory systems
CPT/HCPCS: 71046

== ENCOUNTER 2024-01-21 09:56 | Outpatient (CLI) | payer OTHER, SELFPAY ==
[2024-01-21 10:25] LABS: Basophils # 0.1 K/mm3 (0-0.2); Basophils % 0.5 % (0.1-2.0); Eosinophils # 0.2 K/mm3 (0.0-0.4); Eosinophils % 1.7 % (0.1-12.0); Hemoglobin 15.2 g/dL (14.1-18.0); Lymphocytes # 1.6 K/mm3 (0.7-4.5); Lymphocytes % 18.1 % (10-50); Mean Corpuscular HGB Conc 34.7 g/dL (31.8-35.4); Mean Corpuscular Volume 89.4 fl (80-94); Mean Platelet Volume 8.5 fl (7.4-10.4); Monocytes # 0.5 K/mm3 (0.1-1.0); Monocytes % 5.9 % (1.7-9.3); Neutrophils # 6.6 K/mm3 (1.8-7.8); Neutrophils % 73.8 % (37.0-80.0); Platelet Count 211 K/mm3 (142-424); Red Blood Count 4.92 M/mm3 (4.60-6.20); White Blood Count 8.9 K/mm3 (4.8-10.8)
[2024-01-21 13:10] LABS: Chloride 105 mmol/L (98-107); Sodium 138 mmol/L (136-145)
[2024-01-21 13:11] LABS: Potassium 4.2 mmoL/L (3.5-5.1)
[2024-01-21 13:12] LABS: Blood Urea Nitrogen 14 mg/dl (9-20); Estimated Glomerular Filt Rate 83 ml/min (>60); GFR (African American) 100 ML/MIN (>60)
[2024-01-21 13:13] LABS: Alanine Aminotransferase 31 U/L (12-78); Albumin Level 4.5 g/dl (3.5-5.0); Alkaline Phosphatase 109 U/L (38-126); Anion Gap 10.2 mEq/L (5-15); Aspartate Amino Transferase 36 U/L (17-59); Bilirubin,Direct 0.3 mg/dl (0.0-0.4); Bilirubin,Indirect 0.3 mg/dL (0.0-0.9); Bilirubin,Total 0.6 mg/dl (0.2-1.3); Bilirubin,Unconjugated 0.3 mg/dL (0.0-1.1); Calcium 9.2 mg/dl (8.4-10.2); Carbon Dioxide 27 mmol/L (22.0-30.0); Cholesterol 189 mg/dl (140-200); Glucose 108 mg/dl (74-100); Total Protein,Serum 7.2 g/dl (6.3-8.2); Triglycerides 249 mg/dl (30-150); VLDL Cholesterol 50 mg/dL (0-40)
[2024-01-21 13:14] LABS: Chol/HDL Ratio 8.6 (1-3.5); HDL Cholesterol 22 mg/dl (40-60)
[2024-01-21 13:24] LABS: Direct LDL Cholesterol 106.34 mg/dL (100-129)
[2024-01-21 13:44] LABS: Thyroid Stimulating Hormone 2.15 uIU/mL (0.465-4.68)
== END 2024-01-21 23:59 ==
LOC: LAB 09:57
PROVIDERS: Visit Provider Nurse Practitioner
DX: R94.31 Abnormal electrocardiogram [ECG] [EKG] (principal); R00.2 Palpitations; I10 Essential (primary) hypertension; K21.9 Gastro-esophageal reflux disease without esophagitis; R53.83 Other fatigue; F17.210 Nicotine dependence, cigarettes, uncomplicated
CPT/HCPCS: 36415; 80048; 80061; 80076; 83735; 84439; 84443; 85025

== ENCOUNTER 2024-02-11 13:38 | Emergency (ER) | payer OTHER, SELFPAY ==
[2024-02-11 13:38] VITALS: BP 171/101; PULSE 83; RESP 20; TEMP 37; O2SAT 95; BMI 33.3
--- NOTE | 2024-02-11 13:39 | ECG_ITS ---
APPROVED REPORT Exam: Resting ECG HR:79 bpm ECG Measurements Heart Rate 79 AXES HI 176 P 54 QRSd 116 QRS 49 QT 371 T 45 QTc 405 Conclusion SINUS RHYTHM MODERATE INTRAVENTRICULAR CONDUCTION DELAY [110+ ms QRS DURATION] BORDERLINE ECG Electronically signed by : BOBBY TAI, 02/11/2024 23:11:13
[2024-02-11 13:40] VITALS: BMI 31.5
--- NOTE | 2024-02-11 13:41 | XR_ITS ---
FINAL REPORT CLINICAL HISTORY: chest pain, dizziness FINDINGS: A single portable view of the chest was obtained. The heart size and pulmonary vascularity are within normal limits. The mediastinum is within normal limits. No acute pulmonary abnormality is identified. The bony thorax is intact. Postoperative changes are seen at the left lower thorax. IMPRESSION: No active cardiopulmonary disease. Authenticated and [facility]
[2024-02-11 14:00] VITALS: BP 124/81
[2024-02-11 14:04] LABS: Basophils # 0.1 K/mm3 (0-0.2); Eosinophils # 0.3 K/mm3 (0.0-0.4); Eosinophils % 2.8 % (0.1-12.0); Hematocrit 42.7 % (42.0-52.0); Hemoglobin 14.4 g/dL (14.1-18.0); Lymphocytes # 2.4 K/mm3 (0.7-4.5); Lymphocytes % 23.2 % (10-50); Mean Corpuscular HGB Conc 33.6 g/dL (31.8-35.4); Mean Corpuscular Hemoglobin 30.6 pg (27.0-31.2); Mean Corpuscular Volume 90.9 fl (80-94); Mean Platelet Volume 8.4 fl (7.4-10.4); Monocytes # 0.5 K/mm3 (0.1-1.0); Monocytes % 4.8 % (1.7-9.3); Neutrophils % 68.2 % (37.0-80.0); Platelet Count 229 K/mm3 (142-424); Red Blood Count 4.69 M/mm3 (4.60-6.20); Red Cell Distribution Width 14.4 % (11.5-17.5); White Blood Count 10.3 K/mm3 (4.8-10.8)
[2024-02-11 14:07] LABS: Chloride 109 mmol/L (98-107)
--- NOTE | 2024-02-11 14:07 | ED_ITS ---
Discharge Plan Disposition Patient Disposition: Home, Self-Care Condition: Good Prescriptions Prescriptions: No Action aspirin [Adult Low Dose Aspirin] 81 mg tablet,delayed release (DR/EC) 81 mg PO DAILY Qty: 30 5RF fluticasone propionate [Flonase Allergy Relief] 50 mcg/actuation spray,suspension 2 spray intranasal DAILY 90 Days Qty: 16 2RF Rx Instructions: administer into each nostril Trelegy Ellipta 200-62.5-25 mcg blister with device 1 inh inhalation DAILY 90 Days Qty: 90 3RF atorvastatin [Lipitor] 20 mg tablet 20 mg PO HS Qty: 90 1RF albuterol sulfate 90 mcg/actuation HFA aerosol inhaler See Rx Instructions .ROUTE .COMPLEX Qty: 18 4RF Dose Instruction: INHALE 2 PUFFS EVERY FOUR TO SIX HOURS NEEDED FOR SHORTNESS OF BREATH OR WHEEZING Rx Instructions: INHALE 2 PUFFS EVERY FOUR TO SIX HOURS NEEDED FOR SHORTNESS OF BREATH OR WHEEZING benzonatate 100 mg capsule 100 mg PO BID PRN (Reason: cough) Qty: 20 0RF nicotine (polacrilex) 4 mg lozenge 4 mg buccal Q6H PRN (Reason: nicotine cravings) Qty: 24 0RF losartan 100 mg tablet 100 mg PO DAILY Qty: 30 5RF amlodipine [Norvasc] 5 mg tablet 5 mg PO DAILY Qty: 30 5RF hydrochlorothiazide 25 mg tablet 25 mg PO DAILY Qty: 30 5RF ipratropium-albuterol 0.5 mg-3 mg(2.5 mg base)/3 mL solution for nebulization 3 ml inhalation Q6H PRN (Reason: shortness of breath or wheezing) Qty: 90 3RF omeprazole 40 mg capsule,delayed release(DR/EC) 40 mg PO DAILY Qty: 90 2RF Referrals Follow up/Referrals: Oumar Rainey MD [Physician] - See instructions Provider,MD Moncho [Primary Care Provider] - See instructions Activity Restrictions/Add. Instructions Additional Instructions/Restrictions: Please call and make a follow-up appointment with cardiology for continued close follow-up. I have made a referral for ear nose and throat Clinical Impressions Clinical Impression: Acute confusion Discharge ED Provider: Nir Cardenas General Adult HPI <LEXIS Rajan - Last Filed: 02/11/24 15:48> General Chief complaint: Altered Mental Status Stated complaint: chest pain Time Seen by Provider: 02/11/24 13:43 Mode of Arrival: Ambulatory Source of Information: Patient Limitations: No Limitations Description of Symptoms (Recalled from ER Triage Doc. by RN): Patient states he feels disoriented and pressure behind his eyes just feels off . Also reports his finger tips were tingling but now have stopped. Patient reports it started around 11:30-12:00 while he was at work. Patient denies chest pain. History of Present Illness HPI narrative: Patient presents for evaluation after an episode of acute confusion. Patient states that he was at work when he was suddenly over pain with acute confusion dizziness and disorientation rapid heart rate. Patient states that the symptoms lasted for approximately 30 minutes. He describes no shortness of breath fever chills hemoptysis hematochezia melena nausea vomiting diarrhea but does endorse profound sweating during the episode. Patient does have a history of palpitations for which she follows with cardiology. Patient states that he does not know what particular medications he is on currently but was recently switched off of metoprolol onto amlodipine. Related Data Previous Rx's Medication Instructions Recorded aspirin 81 mg tablet,delayed 81 mg PO DAILY #30 tabs 03/06/21 release (Adult Low Dose Aspirin) ipratropium 0.5 mg-albuterol 3 mg 3 ml inhalation Q6H PRN shortness 05/13/23 (2.5 mg base)/3 mL nebulization of breath or wheezing #90 mL soln fluticasone propionate 50 2 spray intranasal DAILY 90 days 06/03/23 mcg/actuation nasal #16 grams spray,suspension (Flonase Allergy Relief) fluticasone fur. 200 mcg-umeclid 1 inh inhalation DAILY 90 days #90 07/23/23 62.5 mcg-vilant 25 mcg ea inhalat.powder (Trelegy Ellipta) atorvastatin 20 mg tablet (Lipitor) 20 mg PO HS #90 tabs 09/23/23 albuterol sulfate 90 mcg/actuation See Rx Instructions .Route 12/11/23 aerosol inhaler .COMPLEX #18 grams benzonatate 100 mg capsule 100 mg PO BID PRN cough #20 caps 12/11/23 nicotine (polacrilex) 4 mg buccal 4 mg buccal Q6H PRN nicotine 12/11/23 lozenge cravings #24 ea omeprazole 40 mg capsule,delayed 40 mg PO DAILY #90 caps 01/28/24 release amlodipine 5 mg tablet (Norvasc) 5 mg PO DAILY #30 tabs 02/04/24 hydrochlorothiazide 25 mg tablet 25 mg PO DAILY #30 tabs 02/04/24 losartan 100 mg tablet 100 mg PO DAILY #30 tabs 02/04/24 Allergies Allergy/AdvReac Type Severity Reaction Status Date / Time hydrocodone Allergy Verified 02/11/24 13:22 Sulfa (Sulfonamide Allergy Verified 02/11/24 13:22 Antibiotics) [facility] <LEXIS Rajan - Last Filed: 02/11/24 15:48> [facility] Disclaimer: The information contained in this section may have been updated after the patient was seen, as this information can be updated by other users. Medical History Gallstones Abnormal cardiovascular stress test Angina pectoris Allergic rhinitis ILD (interstitial lung disease) Dyspnea on exertion Chest discomfort Asthma with acute exacerbation Cough Dyspnea Hypertension Surgical History History of surgery on upper extremity History of surgery on lower extremity Family History Other No significant family history Social History Smoking Status: Current every day smoker tobacco type: cigarettes packs per day: 1 second hand exposure: Yes alcohol intake: never substance use type: former substance user and heroin current occupational status: employed Travel in the last 8 weeks: None household members: spouse housing: house <LEXIS Rajan - Last Filed: 02/11/24 15:48> ROS Obtained: Yes Systems reviewed as appropriate & no additional complaints except as documented Physical Exam <LEXIS Rajan Last Filed: 02/11/24 15:48> General General appearance: alert and in no apparent distress Head Head exam: atraumatic and normal inspection Eye Eye exam: Present normal appearance, PERRL and EOMI ENT ENT exam: Present normal exam, normal oropharynx and mucous membranes moist Neck Neck exam: Present normal inspection and full ROM; Absent lymphadenopathy Chest Chest inspection: Present normal inspection and symmetric chest wall rise Respiratory Respiratory exam: Present normal lung sounds bilaterally; Absent respiratory distress, wheezes or accessory muscle use Cardiovascular Cardiovascular exam: Present regular rate, normal rhythm, normal heart sounds, +S1 and +S2 Abdominal Exam Abdominal exam: Present soft and normal bowel sounds; Absent tenderness Extremities Exam Extremities exam: Present normal inspection and full ROM Back Exam Back exam: Present normal inspection and full ROM; Absent tenderness Neurological Exam Neurological exam: Present alert (Glascow score = 15 the time of my exam), oriented X3 and CN II-XII intact Psychiatric Psychiatric exam: Present normal affect and normal mood Skin Skin exam: Present warm, dry and normal color Lymphatic Lymphatic Findings: no adenopathy Medical Decision Making <LEXIS Rajan - Last Filed: 02/11/24 15:48> Medical Records Medical records reviewed: Yes I reviewed the patient's medical records. Brody Inquiry Pt receiving controlled substance: No Vital Signs: 02/11/24 13:38 02/11/24 14:00 02/11/24 14:34 Temperature 98.6 F Temperature Source Oral Pulse Rate 59 L Pulse Rate [Right Radial] 83 Respiratory Rate 20 21 Blood Pressure 124/81 126/80 Blood Pressure [Right Arm] 171/101 H Blood Pressure Mean 95 Blood Pressure Mean [Right Arm] 124 Blood Pressure Source [Right Arm] Automatic Cuff Blood Pressure Position [Right Arm] Sitting 02 Sat by Pulse Oximetry 95 99 Oxygen Delivery Method Room Air 02/11/24 15:57 Temperature 98.4 F Temperature Source Oral Pulse Rate 62 Pulse Rate [Right Radial] Respiratory Rate 18 Blood Pressure 126/80 Blood Pressure [Right Arm] Blood Pressure Mean Blood Pressure Mean [Right Arm] Blood Pressure Source [Right Arm] Blood Pressure Position [Right Arm] 02 Sat by Pulse Oximetry Oxygen Delivery Method Room Air Lab Data Lab results reviewed: Yes I reviewed the patient's lab results. Lab Results 02/11/24 13:51: WBC 10.3, RBC 4.69, Hgb 14.4, Hct 42.7, MCV 90.9, MCH 30.6, MCHC 33.6, RDW 14.4, Plt Count 229, MPV 8.4, Neut % (Auto) 68.2, Lymph % (Auto) 23.2, [place] % (Auto) 4.8, Eos % (Auto) 2.8, Baso % (Auto) 1.0, Neut # (Auto) 7.0, Lymph # (Auto) 2.4, [place] # (Auto) 0.5, Eos # (Auto) 0.3, Baso # (Auto) 0.1, Sodium 139, Potassium 3.8, Chloride 109 H, Carbon Dioxide 26, Anion Gap 7.8, BUN 14, Creatinine 1.10, Estimated Creat Clear 126, Estimated GFR 74, Est GFR ( Amer) 90, Glucose 104 H, Calcium 9.1, Total Bilirubin 0.7, AST 40, ALT 38, Alkaline Phosphatase 103, Troponin I < 0.01, Total Protein 6.9, Albumin 4.1, Globulin 2.8, Albumin/Globulin Ratio 1.5 02/11/24 14:29: Urine Color Yellow, Urine Appearance Clear, Urine pH 7.0, Ur Specific [place] 1.020, Urine Protein Negative, Urine Glucose (UA) Negative, Urine Ketones Negative, Urine Blood Negative, Urine Nitrate Negative, Urine Bilirubin Negative, Urine Urobilinogen 0.2, Ur Leukocyte Esterase Negative, Urine RBC Occasional, Urine WBC None, Ur Squamous Epith Cells Occasional, Urine Bacteria None, Urine Opiates Screen Negative, Urine Methadone Screen Negative, Ur Barbituates Screen Negative, Ur Phencyclidine Scrn Negative, Ur Amphetamines Screen Negative, U Benzodiazepines Scrn Negative, Urine Cocaine Screen Negative, U Marijuana (THC) Screen Negative 02/11/24 13:51 02/11/24 13:51 Orders (Tests/Meds): ORDERS Category Date Time Status CT head/brain wo con Stat Cat Scan 02/11/24 14:22 Completed CXR --portable [XR chest portable] Stat Exams 02/11/24 13:41 Completed Complete Blood Count Auto Diff Stat Lab 02/11/24 13:51 Completed Comprehensive Metabolic Panel Stat Lab 02/11/24 13:51 Completed Troponin I Stat Lab 02/11/24 13:51 Completed UA [Urinalysis and Microscopic] Stat Lab 02/11/24 14:29 Completed UDS [Drug Screen,Urine] Stat Lab 02/11/24 14:29 Completed HEART Score History (anamnesis): Slightly suspicious Age: <45 years Risk factors: 3 or more risk factors Medical Decision Narrative: EKG independently interpreted. Sinus rhythm 79 beats a minute no ST or T wave changes concerning for acute ischemia. AK, QRS, QT intervals within normal limits. In summary patient is a 38-year-old male who presents to the emergency department for evaluation of acute confusion. Patient is satting at 95% on room air with a blood pressure 171/101 with a heart rate of 83 respiratory rate 20 and afebrile . Physical exam is unremarkable and nonfocal including normal heart sounds no carotid bruits GCS = 15 no pain on palpation anywhere. Patient did have a heart cath in October 2023 where no intervention was performed but cardiovascular disease was present.. Differential diagnosis includes TIA versus arrhythmia versus near syncope, anxiety etc. Initial workup reviewed by me shows that his hematologic labs are nonactionable including an undetectable troponin. My informal review of his CT scan of his brain does not show any acute intracranial processes but may show chronic mastoiditis upon repeat evaluation patient has remained hemodynamically stable and has had no recurrences of his symptoms.. Given this patient is appropriate for discharge home with close follow-up with cardiology and a referral to ear nose and throat for what appears to be chronic mastoiditis on his CT scan <Nir Cardenas MD - Last Filed: 02/12/24 07:18> Vital Signs: 02/11/24 13:38 02/11/24 14:00 02/11/24 14:34 Temperature 98.6 F Temperature Source Oral Pulse Rate 59 L Pulse Rate [Right Radial] 83 Respiratory Rate 20 21 Blood Pressure 124/81 126/80 Blood Pressure [Right Arm] 171/101 H Blood Pressure Mean 95 Blood Pressure Mean [Right Arm] 124 Blood Pressure Source [Right Arm] Automatic Cuff Blood Pressure Position [Right Arm] Sitting 02 Sat by Pulse Oximetry 95 99 Oxygen Delivery Method Room Air 02/11/24 15:57 Temperature 98.4 F Temperature Source Oral Pulse Rate 62 Pulse Rate [Right Radial] Respiratory Rate 18 Blood Pressure 126/80 Blood Pressure [Right Arm] Blood Pressure Mean Blood Pressure Mean [Right Arm] Blood Pressure Source [Right Arm] Blood Pressure Position [Right Arm] 02 Sat by Pulse Oximetry Oxygen Delivery Method Room Air Lab Data Lab Results 02/11/24 13:51: WBC 10.3, RBC 4.69, Hgb 14.4, Hct 42.7, MCV 90.9, MCH 30.6, MCHC 33.6, RDW 14.4, Plt Count 229, MPV 8.4, Neut % (Auto) 68.2, Lymph % (Auto) 23.2, [place] % (Auto) 4.8, Eos % (Auto) 2.8, Baso % (Auto) 1.0, Neut # (Auto) 7.0, Lymph # (Auto) 2.4, [place] # (Auto) 0.5, Eos # (Auto) 0.3, Baso # (Auto) 0.1, Sodium 139, Potassium 3.8, Chloride 109 H, Carbon Dioxide 26, Anion Gap 7.8, BUN 14, Creatinine 1.10, Estimated Creat Clear 126, Estimated GFR 74, Est GFR ( Amer) 90, Glucose 104 H, Calcium 9.1, Total Bilirubin 0.7, AST 40, ALT 38, Alkaline Phosphatase 103, Troponin I < 0.01, Total Protein 6.9, Albumin 4.1, Globulin 2.8, Albumin/Globulin Ratio 1.5 02/11/24 14:29: Urine Color Yellow, Urine Appearance Clear, Urine pH 7.0, Ur Specific [place] 1.020, Urine Protein Negative, Urine Glucose (UA) Negative, Urine Ketones Negative, Urine Blood Negative, Urine Nitrate Negative, Urine Bilirubin Negative, Urine Urobilinogen 0.2, Ur Leukocyte Esterase Negative, Urine RBC Occasional, Urine WBC None, Ur Squamous Epith Cells Occasional, Urine Bacteria None, Urine Opiates Screen Negative, Urine Methadone Screen Negative, Ur Barbituates Screen Negative, Ur Phencyclidine Scrn Negative, Ur Amphetamines Screen Negative, U Benzodiazepines Scrn Negative, Urine Cocaine Screen Negative, U Marijuana (THC) Screen Negative Orders (Tests/Meds): ORDERS Category Date Time Status CT head/brain wo con Stat Cat Scan 02/11/24 14:22 Completed CXR --portable [XR chest portable] Stat Exams 02/11/24 13:41 Completed Complete Blood Count Auto Diff Stat Lab 02/11/24 13:51 Completed Comprehensive Metabolic Panel Stat Lab 02/11/24 13:51 Completed Troponin I Stat Lab 02/11/24 13:51 Completed UA [Urinalysis and Microscopic] Stat Lab 02/11/24 14:29 Completed UDS [Drug Screen,Urine] Stat Lab 02/11/24 14:29 Completed Medical Decision Narrative: EKG independently interpreted. Sinus rhythm 79 beats a minute no ST or T wave changes concerning for acute ischemia. AK, QRS, QT intervals within normal limits. In summary patient is a 38-year-old male who presents to the emergency department for evaluation of acute confusion. Patient is satting at 95% on room air with a blood pressure 171/101 with a heart rate of 83 respiratory rate 20 and afebrile . Physical exam is unremarkable and nonfocal including normal heart sounds no carotid bruits GCS = 15 no pain on palpation anywhere. Patient did have a heart cath in October 2023 where no intervention was performed but cardiovascular disease was present.. Differential diagnosis includes TIA versus arrhythmia versus near syncope, anxiety etc. Initial workup reviewed by me shows that his hematologic labs are nonactionable including an undetectable troponin. My informal review of his CT scan of his brain does not show any acute intracranial processes but may show chronic mastoiditis upon repeat evaluation patient has remained hemodynamically stable and has had no recurrences of his symptoms.. Given this patient is appropriate for discharge home with close follow-up with cardiology and a referral to ear nose and throat for what appears to be chronic mastoiditis on his CT scan I was consulted by the [facility], and we discussed the complexity of the problems being addressed. I approved the treatment and management plan for this patient?s care in the Emergency Department, thus performing a substantive portion of the medical decision making. Nir Cardenas MD Critical Care <LEXIS Rajan - Last Filed: 02/11/24 15:48> Critical Care Time Critical Care Time: No
[2024-02-11 14:08] LABS: Potassium 3.8 mmoL/L (3.5-5.1); Sodium 139 mmol/L (136-145)
[2024-02-11 14:10] LABS: Alanine Aminotransferase 38 U/L (12-78); Albumin Level 4.1 g/dl (3.5-5.0); Albumin/Globulin Ratio 1.5 (1.1-1.8); Alkaline Phosphatase 103 U/L (38-126); Anion Gap 7.8 mEq/L (5-15); Aspartate Amino Transferase 40 U/L (17-59); Bilirubin,Total 0.7 mg/dl (0.2-1.3); Blood Urea Nitrogen 14 mg/dl (9-20); Calcium 9.1 mg/dl (8.4-10.2); Carbon Dioxide 26 mmol/L (22.0-30.0); Creatinine Clearance Estimated 126 mL/min (50-200); Estimated Glomerular Filt Rate 74 ml/min (>60); GFR (African American) 90 ML/MIN (>60); Globulin 2.8 g/dL (1.3-3.2); Glucose 104 mg/dl (74-100); Total Protein,Serum 6.9 g/dl (6.3-8.2)
--- NOTE | 2024-02-11 14:22 | CT_ITS ---
FINAL REPORT CLINICAL HISTORY: Acute confusion COMPARISON: 09/03/2023 FINDINGS: Axial images of the head were obtained without contrast. Coronal and sagittal reformatted images were also obtained.This study was performed with techniques to keep radiation doses as low as reasonably achievable (ALARA). Individualized dose reduction techniques using automated exposure control or adjustment of mA and/or kV according to the patient's size were employed. There is no evidence of intracranial hemorrhage or mass. The ventricular size is within normal limits. There is no evidence of shift of the midline structures. No abnormal extra axial fluid collection is identified. No skull abnormality is seen on the bone window images. There is diffuse sinusitis with air-fluid levels in the right mastoid air cells consistent with sinusitis and mastoiditis. IMPRESSION: No acute intracranial abnormality. Sinusitis and right mastoiditis, not significantly changed since the prior CT of September 2023. Reviewed, Interpreted and Dictated by Roge Nelson III, MD Transcribed by Cynthia Velazquez Authenticated and [facility]
[2024-02-11 14:29] LABS: Troponin I < 0.01 ng/ml (0.00-0.034)
[2024-02-11 14:34] VITALS: BP 126/80; PULSE 59; RESP 21; O2SAT 99
[2024-02-11 14:37] LABS: Microscopic, Urine URINE MICROSCOPIC (MICROSCOPIC)
[2024-02-11 14:40] LABS: Appearance,Urine CLEAR (Clear); Bilirubin,Urine Negative (Negative); Blood, Urine Negative (Negative); Color,Urine YELLOW (Yellow); Glucose,Urine (UA) Negative (Negative); Ketones,Urine Negative (Negative); Leukocyte Esterase,Urine Negative (Negative); Nitrate,Urine Negative (Negative); Protein,Urine Negative (Negative); Urobilinogen,Urine 0.2 EU/dl (0.2)
--- NOTE | 2024-02-11 14:40 | PC.NURSE ---
Patient back from [facility] at this time.
[2024-02-11 14:57] LABS: Amphetamine/Metha Screen,Urine Negative ng/ml (<1000)
[2024-02-11 14:58] LABS: Barbiturates Screen,Urine Negative ng/ml (<200); Benzodiazepines Screen,Urine Negative ng/ml (<200)
[2024-02-11 14:59] LABS: Cannabinoid Screen,Urine Negative ng/ml (<50)
[2024-02-11 15:00] LABS: Cocaine Screen,Urine Negative ng/ml (<300); Methadone Screen,Urine Negative ng/ml (<300)
[2024-02-11 15:01] LABS: Opiate Screen,Urine Negative ng/ml (<300)
[2024-02-11 15:02] LABS: Phencyclidine Screen,Urine Negative ng/ml (<25)
[2024-02-11 15:17] LABS: RBC,Urine Occasional #/hpf (0-3); Squamous Epithelial Cell,Urine Occasional #/hpf (0-5)
[2024-02-11 15:57] VITALS: BP 126/80; PULSE 62; RESP 18; TEMP 36.9; O2SAT 98
== END 2024-02-11 16:03 | disposition home or self-care (01) ==
PROVIDERS: Physician Assistant; Emergency Provider Emergency Medicine
DX: R41.0 Disorientation, unspecified (principal); I10 Essential (primary) hypertension; I20.9 Angina pectoris, unspecified; F17.210 Nicotine dependence, cigarettes, uncomplicated
CPT/HCPCS: 70450; 71045; 80053; 80307; 81001; 84484; 85025; 93005; 99285

== ENCOUNTER 2024-06-09 07:26 | Emergency (ER) | payer OTHER, SELFPAY ==
[2024-06-09] VITALS (7 sets, daily range): BP systolic 116–176; BP diastolic 90–117; PULSE 61–91; RESP 16–23; TEMP 36.7; O2SAT 94–98; BMI 33.7
--- NOTE | 2024-06-09 07:37 | ECG_ITS ---
APPROVED REPORT Exam: Resting ECG HR:82 bpm ECG Measurements Heart Rate 82 AXES HI 165 P 46 QRSd 111 QRS 30 QT 356 T 53 QTc 395 Conclusion SINUS RHYTHM MODERATE INTRAVENTRICULAR CONDUCTION DELAY [110+ ms QRS DURATION] BORDERLINE ECG Electronically signed by : ADAM KOLB, 06/09/2024 16:09:18
--- NOTE | 2024-06-09 07:43 | XR_ITS ---
FINAL REPORT CLINICAL HISTORY: palpitations, shortness of breath COMPARISON: 12/11/2023 FINDINGS: Two views of the chest were obtained. The heart size and pulmonary vascularity are within normal limits. The mediastinum is normal. No acute pulmonary abnormality is identified. There is no pneumothorax. The bony thorax is intact. IMPRESSION: No active cardiopulmonary disease. Reviewed, Interpreted and Dictated by Roge Nelson III, MD Transcribed by Bridgett Arellano Authenticated and [facility]
--- NOTE | 2024-06-09 07:45 | HMH.EDGENADL ---
Discharge Plan Disposition Patient Disposition: Home, Self-Care Condition: Good Prescriptions Prescriptions: No Action aspirin [Adult Low Dose Aspirin] 81 mg tablet,delayed release (DR/EC) 81 mg PO DAILY Qty: 30 5RF fluticasone propionate [Flonase Allergy Relief] 50 mcg/actuation spray,suspension 2 spray intranasal DAILY 90 Days Qty: 16 2RF Rx Instructions: administer into each nostril Trelegy Ellipta 200-62.5-25 mcg blister with device 1 inh inhalation DAILY 90 Days Qty: 90 3RF albuterol sulfate 90 mcg/actuation HFA aerosol inhaler See Rx Instructions .ROUTE .COMPLEX Qty: 18 4RF Dose Instruction: INHALE 2 PUFFS EVERY FOUR TO SIX HOURS NEEDED FOR SHORTNESS OF BREATH OR WHEEZING Rx Instructions: INHALE 2 PUFFS EVERY FOUR TO SIX HOURS NEEDED FOR SHORTNESS OF BREATH OR WHEEZING ipratropium-albuterol 0.5 mg-3 mg(2.5 mg base)/3 mL solution for nebulization 3 ml inhalation Q6H PRN (Reason: shortness of breath or wheezing) Qty: 90 3RF metoprolol succinate 100 mg tablet extended release 24 hr 100 mg PO ONCE Patient Comments: TAKE 1 TABLET BY MOUTH DAILY Referrals Follow up/Referrals: Provider,Referral, MD [Primary Care Provider] - See instructions Activity Restrictions/Add. Instructions Additional Instructions/Restrictions: You were evaluated in the emergency department today. 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 Keep an eye on your blood pressure at home. Return to the emergency department for new or worsening symptoms Clinical Impressions Clinical Impression: Palpitations Stand Alone Forms Stand Alone Forms: Work/School Release Instructions Patient Instructions: DI for High Blood Pressure, DI for Palpitations Print Language Print Language: [place] Discharge ED Provider: Ev Gutierrez General Adult HPI General Chief complaint: Arrhythmia/Palpitations Stated complaint: high BP, sweats, arms feel heavy Time Seen by Provider: 06/09/24 07:35 Mode of Arrival: Ambulatory Source of Information: Patient Limitations: No Limitations Description of Symptoms (Recalled from ER Triage Doc. 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 pt reports his chest felt heavy at this time. pt denies any pain/pressure. no other complaints. History of Present Illness HPI narrative: This patient is a 39-year-old male with a history of hypertension, hepatitis C, interstitial lung disease, previous abnormal stress test with normal cath 10/2023, GERD, and previous evaluations for palpitations in the past presenting to the emergency department for evaluation with concern for an episode of palpitations, chest heaviness, diaphoresis, and arm heaviness that started just 20 minutes prior to arrival. 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 He notes associated shortness of breath. He states they checked his blood pressure and it was really high. He takes his metoprolol at night, and he reports compliance with it, taking it last night with no missed dosages. On medical record review, it was like he is previously been prescribed losartan, amlodipine and hydrochlorothiazide in the past. He also is on inhalers for his chronic lung issues, but he had not used them this morning and denies any increase in use. He denies any emotional stressors/anxiety. He notes he is currently feeling a little bit better, just weak overall Related Data Home Medications ?Medication ?Instructions ?Recorded ?Confirmed metoprolol succinate 100 mg 100 mg PO DAILY 06/09/24 06/09/24 tablet,extended release 24 hr Previous Rx's ?Medication ?Instructions ?Recorded aspirin 81 mg tablet,delayed 81 mg PO DAILY #30 tabs 03/06/21 release (Adult Low Dose Aspirin) ipratropium 0.5 mg-albuterol 3 mg 3 ml inhalation Q6H PRN shortness 05/13/23 (2.5 mg base)/3 mL nebulization of breath or wheezing #90 mL soln fluticasone propionate 50 2 spray intranasal DAILY 90 days 06/03/23 mcg/actuation nasal #16 grams spray,suspension (Flonase Allergy Relief) fluticasone fur. 200 mcg-umeclid 1 inh inhalation DAILY 90 days #90 07/23/23 62.5 mcg-vilant 25 mcg ea inhalat.powder (Trelegy Ellipta) albuterol sulfate 90 mcg/actuation See Rx Instructions .Route 12/11/23 aerosol inhaler .COMPLEX #18 grams Allergies Allergy/AdvReac Type Severity Reaction Status Date / Time hydrocodone Allergy Verified 06/09/24 14:32 Sulfa (Sulfonamide Allergy Verified 06/09/24 14:32 Antibiotics) PFSH PFSH Disclaimer: The information contained in this section may have been updated after the patient was seen, as this information can be updated by other users. Medical History (Updated 06/09/24 @ 14:39 by Omayra Bond APRN) SOB (shortness of breath) on exertion Gallstones Abnormal cardiovascular stress test Angina pectoris Allergic rhinitis ILD (interstitial lung disease) Dyspnea on exertion Chest discomfort Asthma with acute exacerbation Cough Dyspnea Hypertension Surgical History History of surgery on upper extremity History of surgery on lower extremity Family History Other No significant family history Social History Smoking Status: Current every day smoker tobacco type: cigarettes packs per day: 1 second hand exposure: Yes alcohol intake: never substance use type: former substance user and heroin current occupational status: employed Travel in the last 8 weeks: None household members: spouse housing: house ROS Obtained: Yes All systems reviewed & no additional complaints except as documented Physical Exam General General appearance: alert and in no apparent distress Head Head exam: atraumatic and normocephalic Eye Eye exam: Present normal appearance, PERRL and EOMI ENT ENT exam: Present normal exam, normal oropharynx, mucous membranes moist and normal external ear exam Neck Neck exam: Present normal inspection, full ROM and trachea midline; Absent tenderness Chest Chest inspection: Present normal inspection and symmetric chest wall rise; Absent tenderness Respiratory Respiratory exam: Present normal lung sounds bilaterally; Absent respiratory distress, wheezes, stridor or accessory muscle use Cardiovascular Cardiovascular exam: Present regular rate and normal rhythm Abdominal Exam Abdominal exam: Present soft; Absent distention, tenderness or guarding Extremities Exam Extremities exam: Present normal inspection, full ROM and normal capillary refill; Absent tenderness or edema Back Exam Back exam: Present normal inspection and full ROM; Absent tenderness Neurological Exam Neurological exam: Present alert, oriented X3, CN II-XII intact and normal gait; Absent motor sensory deficit Psychiatric Psychiatric exam: Present normal affect and normal mood Skin Skin exam: Present warm and diaphoresis Medical Decision Making Medical Records Medical records reviewed: Yes I reviewed the patient's medical records. Brody Inquiry Pt receiving controlled substance: No Vital Signs: 06/09/24 07:34 06/09/24 08:00 06/09/24 08:45 Temperature 98.1 F Temperature Source Oral Pulse Rate 77 66 Pulse Rate [Left] 91 H Respiratory Rate 16 23 16 Blood Pressure 151/101 H 139/95 H Blood Pressure [Right Arm] 176/117 H Blood Pressure Mean [Right Arm] 136 02 Sat by Pulse Oximetry 98 96 95 Oxygen Delivery Method Room Air Room Air Room Air 06/09/24 09:00 06/09/24 09:30 06/09/24 10:00 Temperature Temperature Source Pulse Rate 71 70 69 Pulse Rate [Left] Respiratory Rate 21 22 20 Blood Pressure 144/94 H 136/96 H 133/90 Blood Pressure [Right Arm] Blood Pressure Mean [Right Arm] 02 Sat by Pulse Oximetry 94 L 96 97 Oxygen Delivery Method Room Air Room Air 06/09/24 10:25 Temperature 98.1 F Temperature Source Pulse Rate 61 Pulse Rate [Left] Respiratory Rate 17 Blood Pressure 116/94 H Blood Pressure [Right Arm] Blood Pressure Mean [Right Arm] 02 Sat by Pulse Oximetry Oxygen Delivery Method Room Air Lab Data Lab results reviewed: Yes I reviewed the patient's lab results. Lab Results 06/09/24 07:35: WBC 9.0, RBC 4.79, Hgb 14.7, Hct 43.1, MCV 90.0, MCH 30.7, MCHC 34.1, RDW 14.5, Plt Count 198, MPV 8.1, Neut % (Auto) 69.0, Lymph % (Auto) 21.6, [place] % (Auto) 6.6, Eos % (Auto) 2.3, Baso % (Auto) 0.5, Neut # (Auto) 6.2, Lymph # (Auto) 1.9, [place] # (Auto) 0.6, Eos # (Auto) 0.2, Baso # (Auto) 0.0, D-Dimer 0.26, Sodium 139, Potassium 3.8, Chloride 107, Carbon Dioxide 26, Anion Gap 9.8, BUN 17, Creatinine 1.10, Estimated Creat Clear 145, Estimated GFR 74, Est GFR ( Amer) 89, Glucose 114 H, Calcium 8.9, Magnesium 1.9, Total Bilirubin 0.6, AST 38, ALT 38, Alkaline Phosphatase 102, Troponin I < 0.01, Total Protein 7.6, Albumin 4.5, Globulin 3.1, Albumin/Globulin Ratio 1.5, TSH 2.15, Thyroxine (T4) 10.6 06/09/24 09:22: Troponin I < 0.01 06/09/24 07:35 06/09/24 07:35 Orders (Tests/Meds): ED MEDICATIONS Discontinued Medications Generic Name Dose Route Start Last Admin Trade Name Wilberq PRN Reason Stop Dose Admin Sodium Chloride 10 ml 06/09/24 07:40 Sodium Chloride 0.9% 10ml Flush Syringe IV 07/09/24 07:39 NEEDED PRN Maintain IV Site ORDERS Category Date Time Status CXR 2 view (NOT portable) [XR chest 2V] Stat Exams 06/09/24 07:43 Completed Complete Blood Count Auto Diff Stat Lab 06/09/24 07:35 Completed Comprehensive Metabolic Panel Stat Lab 06/09/24 07:35 Completed D-Dimer Stat Lab 06/09/24 07:35 Completed Magnesium Stat Lab 06/09/24 07:35 Completed T4 (Thyroxine) Stat Lab 06/09/24 07:35 Completed TSH [Thyroid Stimulating Hormone] Stat Lab 06/09/24 07:35 Completed Trop I [Troponin I] Stat Lab 06/09/24 07:35 Completed Troponin I Q3H Lab 06/09/24 09:22 Completed ECG Data Tracing #1: I reviewed this ECG and interpreted as documented below: Normal sinus rhythm with a ventricular rate of [address] changes concerning for ischemia. Normal axis and intervals. ECG initial impression date: 06/09/24 ECG initial impression time: 07:39 HEART Score History (anamnesis): Slightly suspicious ECG: Normal Age: <45 years Risk factors: 1-2 risk factors Troponin: </= normal limit HEART Score: 1 Medical Decision Narrative: In summary, this patient is a 39-year-old male presenting to the Emergency Department for evaluation of palpitations, diaphoresis, high blood pressure, chest and arm heaviness. Differential diagnoses considered include but are not limited to ACS, dysrhythmia, hyperthyroid, PE, aortic pathology, hypertensive urgency, hypertensive emergency. Ruling out the most morbid conditions drove assessment. It should be noted patient's history includes hypertension which is not at goal therapy. This complicates all aspects of care by increasing patient's risk for morbidity. I reviewed patient's past medical records and noted previous evaluations in the past by cardiology as well as normal catheterization 10/25. On exam, the patient is diaphoretic but is otherwise well-appearing with reassuring cardiopulmonary and abdominal exams. Vitals are reassuring on cardiac telemetry. Workup included CBC, CMP, troponin, TSH, T4, magnesium, D-dimer, chest x-ray, EKG. He is hypertensive upon arrival with systolics in the 170s. Will keep an eye on his blood pressure on cardiac telemetry. I independently interpreted x-ray prior to the radiologist read and noted no acute focal consolidation concerning for pneumonia, no pulmonary edema, no pneumothorax, and no obvious mediastinal widening. Please see their read for final interpretation. Labs were obtained that demonstrated negative initial troponin, negative D-dimer, and no other acutely concerning abnormalities. EKG is reassuring. On reassessment, the patient is resting comfortably with resolved symptoms and normal vital signs on cardiac telemetry with significant improvement in his blood pressure to systolics in the 130s. At 0915, patient was placed in ED observation status pending second troponin to determine whether or not the patient would be appropriate for discharge versus admission. The patient was provided serial reevaluations and cardiac monitoring while awaiting ultimate disposition. On reassessment, the patient is resting comfortably with resolution of symptoms. Vitals are normal on cardiac telemetry including blood pressure. Second troponin came back negative. Given reassuring workup and exam, it is felt that the patient is appropriate for discharge at 1015 Total ED observation time was 1 hour. He was given strict return precautions and instructions for close outpatient follow-up I had a [id number] visit with the patient when providing discharge instructions. The total time involved in discharging this patient was less than 30 minutes. Critical Care Critical Care Time Critical Care Time: No
[2024-06-09 07:49] LABS: Chloride 107 mmol/L (98-107)
[2024-06-09 07:50] LABS: Albumin Level 4.5 g/dl (3.5-5.0); Potassium 3.8 mmoL/L (3.5-5.1); Sodium 139 mmol/L (136-145)
[2024-06-09 07:53] LABS: Anion Gap 9.8 mEq/L (5-15); Blood Urea Nitrogen 17 mg/dl (9-20); Carbon Dioxide 26 mmol/L (22.0-30.0); Creatinine Clearance Estimated 145 mL/min (50-200); Estimated Glomerular Filt Rate 74 ml/min (>60); GFR (African American) 89 ML/MIN (>60)
[2024-06-09 08:00] LABS: Basophils % 0.5 % (0.1-2.0); Eosinophils # 0.2 K/mm3 (0.0-0.4); Eosinophils % 2.3 % (0.1-12.0); Hematocrit 43.1 % (42.0-52.0); Hemoglobin 14.7 g/dL (14.1-18.0); Lymphocytes # 1.9 K/mm3 (0.7-4.5); Lymphocytes % 21.6 % (10-50); Mean Corpuscular HGB Conc 34.1 g/dL (31.8-35.4); Mean Corpuscular Hemoglobin 30.7 pg (27.0-31.2); Mean Platelet Volume 8.1 fl (7.4-10.4); Monocytes # 0.6 K/mm3 (0.1-1.0); Monocytes % 6.6 % (1.7-9.3); Neutrophils # 6.2 K/mm3 (1.8-7.8); Platelet Count 198 K/mm3 (142-424); Red Blood Count 4.79 M/mm3 (4.60-6.20); Red Cell Distribution Width 14.5 % (11.5-17.5)
[2024-06-09 08:10] LABS: T4 (Thyroxine) 10.6 ug/dl (5.53-11.0)
[2024-06-09 08:20] LABS: D-Dimer 0.26 ug/mL (0.0-0.5)
[2024-06-09 08:24] LABS: Thyroid Stimulating Hormone 2.15 uIU/mL (0.465-4.68)
[2024-06-09 08:25] LABS: Troponin I < 0.01 ng/ml (0.00-0.034)
[2024-06-09 08:36] LABS: Alanine Aminotransferase 38 U/L (12-78); Alkaline Phosphatase 102 U/L (38-126); Aspartate Amino Transferase 38 U/L (17-59); Bilirubin,Total 0.6 mg/dl (0.2-1.3)
[2024-06-09 08:37] LABS: Albumin/Globulin Ratio 1.5 (1.1-1.8); Calcium 8.9 mg/dl (8.4-10.2); Globulin 3.1 g/dL (1.3-3.2); Glucose 114 mg/dl (74-100); Magnesium 1.9 mg/dl (1.6-2.3); Total Protein,Serum 7.6 g/dl (6.3-8.2)
[2024-06-09 10:00] LABS: Troponin I < 0.01 ng/ml (0.00-0.034)
== END 2024-06-09 10:26 | disposition home or self-care (01) ==
PROVIDERS: Emergency Provider Emergency Medicine
DX: R07.89 Other chest pain (principal); R06.02 Shortness of breath; R00.2 Palpitations; F17.210 Nicotine dependence, cigarettes, uncomplicated; I10 Essential (primary) hypertension; J84.9 Interstitial pulmonary disease, unspecified
CPT/HCPCS: 71046; 80050; 80053; 83735; 84436; 84443; 84484; 85025; 85378; 93005; 99284

== ENCOUNTER 2024-06-16 15:15 | Outpatient (CLI) | payer OTHER, SELFPAY | END 2024-06-16 23:59 | disposition home or self-care (01) | LOC: RT 15:16 | PROVIDERS: Visit Provider Nurse Practitioner Family | DX: R00.2 Palpitations (principal) | CPT/HCPCS: 93270 ==

== ENCOUNTER 2024-06-28 14:50 | Outpatient (CLI) | payer OTHER, SELFPAY ==
[2024-06-28 19:28] LABS: Coronavirus 19, PCR Not Detected (NotDetected); Influenza A, PCR Not Detected (NotDetected); Influenza B, PCR Not Detected (NotDetected)
== END 2024-06-28 23:59 | disposition home or self-care (01) ==
LOC: LAB.DROPOF 06-29 12:37
PROVIDERS: PCP Family Medicine; Visit Provider Family Medicine
DX: R06.02 Shortness of breath (principal); R42 Dizziness and giddiness; R61 Generalized hyperhidrosis
CPT/HCPCS: 87636

== ENCOUNTER 2024-07-13 16:25 | Outpatient (CLI) | payer OTHER, SELFPAY ==
--- NOTE | 2024-07-13 16:32 | MR_ITS ---
FINAL REPORT CLINICAL HISTORY: mastoiditis. HEADACHE. DIZZINESS AND BLURRED VISION COMPARISON: None FINDINGS: Multiplanar MR imaging of the brain was performed without and with contrast. There is no evidence of intracranial hemorrhage or mass. No abnormal extra-axial fluid collection is seen. The ventricular size is within normal limits. There is no evidence of shift of the midline structures. The posterior fossa and brainstem have an unremarkable appearance. No area of abnormal restricted diffusion is identified. No abnormal contrast enhancement is seen. Normal major vessel vascular flow voids are noted. There is opacification of several mastoid air cells bilaterally. There is opacification of multiple ethmoid air cells and mild lobular mucosal thickening in the frontal maxillary sinuses, consistent with widespread sinusitis. IMPRESSION: Opacification of several mastoid air cells bilaterally. Widespread sinusitis. Reviewed, Interpreted and Dictated by Roge Nelson III, MD Transcribed by Bridgett Arellano Authenticated and [facility]
[2024-07-13] MEDS: SODIUM CHLORIDE 0.9% 10ML SYR (RAD ONLY) 10 ML IV (17:16)
[2024-07-13] MEDS: GADOTERIDOL INJ 10ML SYRINGE 4 ML IV (17:17)
[2024-07-13] MEDS: GADOTERIDOL INJ 20ML SYRINGE 20 ML IV (17:17)
== END 2024-07-13 23:59 | disposition home or self-care (01) ==
LOC: RAD 16:26
PROVIDERS: Visit Provider Family Medicine
DX: H70.90 Unspecified mastoiditis, unspecified ear (principal)
CPT/HCPCS: 70553; A9576

== ENCOUNTER 2024-07-23 14:19 | Outpatient (CLI) | payer OTHER, SELFPAY ==
--- NOTE | 2024-07-23 14:24 | MR_ITS ---
FINAL REPORT CLINICAL HISTORY: reoccurring headaches/neck pain COMPARISON: None FINDINGS: Multi planar MR imaging was obtained of the cervical spine with and without contrast. There is abnormal decreased signal throughout the cervical discs, particularly in the C3-4 and C6-7 discs. The vertebrae are of normal height. There is mild reversal of the normal cervical lordosis. The cervical cord demonstrates normal signal and configuration. C2-C3: There is no evidence of significant disc bulge or protrusion. There is no significant facet hypertrophy. C3-C4: A mild annular bulge is present with mild bilateral neural foraminal narrowing. C4-C5: A mild annular bulge is present with endplate hypertrophy eccentric to the right, producing severe right neural foraminal narrowing. C5-C6: There is no evidence of significant disc bulge or protrusion. There is no significant facet hypertrophy. C6-C7: A moderate annular bulge is present with a broad-based midline disc protrusion, producing mild canal stenosis and severe right neural foraminal narrowing. C7-T1: There is no evidence of significant disc bulge or protrusion. There is no significant facet hypertrophy. There is no abnormal contrast enhancement. IMPRESSION: Degenerative change most severe at the C4-5 and C6-7 levels as described. Reviewed, Interpreted and Dictated by Venancio Ramirez MD Transcribed by Cynthia Velazquez Authenticated and [facility]
[2024-07-23] MEDS: GADOTERIDOL INJ 10ML SYRINGE 5 ML IV (15:26)
[2024-07-23] MEDS: GADOTERIDOL INJ 20ML SYRINGE 20 ML IV (15:26)
[2024-07-23] MEDS: SODIUM CHLORIDE 0.9% 10ML SYR (RAD ONLY) 10 ML IV (15:26)
== END 2024-07-23 23:59 | disposition home or self-care (01) ==
LOC: RAD 14:19
PROVIDERS: PCP Family Medicine; Visit Provider Nurse Practitioner
DX: M54.2 Cervicalgia (principal); R51.9 Headache, unspecified
CPT/HCPCS: 72156; A9576

== ENCOUNTER → 2024-07-30 06:07 | Outpatient (CLI) | payer OTHER, SELFPAY | LOC: SL 06:08 | PROVIDERS: PCP Family Medicine; Visit Provider Nurse Practitioner Family | DX: G47.33 Obstructive sleep apnea (adult) (pediatric) (principal); G47.36 Sleep related hypoventilation in conditions classified elsewhere | CPT/HCPCS: 95806 ==

== ENCOUNTER 2024-08-06 16:06 | Outpatient (RCR) | payer OTHER, SELFPAY | END 2024-08-06 23:59 | disposition home or self-care (01) | LOC: PT 16:06 | PROVIDERS: Visit Provider Otolaryngology | DX: G44.86 Cervicogenic headache (principal); S03.00XA Dislocation of jaw, unspecified side, initial encounter | CPT/HCPCS: 97163 ==

== ENCOUNTER 2024-09-08 12:29 | Outpatient (CLI) | payer OTHER, SELFPAY ==
--- NOTE | 2024-09-08 12:29 | CT_ITS ---
FINAL REPORT TECHNIQUE: Thin section axial CT images of the facial bones and sinuses were obtained without contrast. Coronal reformatted images were also obtained.This study was performed with techniques to keep radiation doses as low as reasonably achievable, (ALARA). Individualized dose reduction techniques using automated exposure control or adjustment of mA and/or kV according to the patient''''s size were employed. CLINICAL HISTORY: REOCCURING HEADACHES, WIDESPREAD SINUSITIS COMPARISON: None FINDINGS: There is mucosal thickening of multiple sinuses. There is a 21 mm retention cyst or polyp in the left maxillary sinus. Narrowing is noted of the right maxillary sinus ostium secondary to mucosal thickening. There is a small amount of fluid in the right mastoid air cell worrisome for right mastoiditis. The ostiomeatal units have an unremarkable appearance. The nasal septum is in the midline. No fracture or acute bony abnormality is identified. IMPRESSION: Findings of sinusitis and right mastoiditis. Reviewed, Interpreted and Dictated by Roge Nelson III, MD Transcribed by Bridgett Arellano Authenticated and [facility]
== END 2024-09-08 23:59 | disposition home or self-care (01) ==
LOC: RAD 12:29
PROVIDERS: PCP Otolaryngology; Visit Provider Otolaryngology
DX: R51.9 Headache, unspecified (principal); J32.9 Chronic sinusitis, unspecified
CPT/HCPCS: 70486

== ENCOUNTER 2025-01-19 14:56 | Outpatient (CLI) | payer OTHER, SELFPAY ==
[2025-01-19 15:18] LABS: Basophils % 0.4 % (0.1-2.0); Eosinophils # 0.1 K/mm3 (0.0-0.4); Eosinophils % 1.8 % (0.1-12.0); Hematocrit 44.5 % (42.0-52.0); Hemoglobin 15.6 g/dL (14.1-18.0); Lymphocytes # 1.1 K/mm3 (0.7-4.5); Lymphocytes % 15.5 % (10-50); Mean Corpuscular HGB Conc 35.1 g/dL (31.8-35.4); Mean Corpuscular Hemoglobin 30.1 pg (27.0-31.2); Mean Corpuscular Volume 85.9 fl (80-94); Monocytes # 0.6 K/mm3 (0.1-1.0); Monocytes % 8.8 % (1.7-9.3); Neutrophils # 5.3 K/mm3 (1.8-7.8); Neutrophils % 72.5 % (37.0-80.0); Platelet Count 208 K/mm3 (142-424); Red Blood Count 5.18 M/mm3 (4.60-6.20); Red Cell Distribution Width 13.2 % (11.5-17.5); White Blood Count 7.3 K/mm3 (4.8-10.8)
[2025-01-19 15:24] LABS: Albumin Level 4.8 g/dl (3.5-5.0); Chloride 104 mmol/L (98-107); Potassium 4.1 mmoL/L (3.5-5.1); Sodium 141 mmol/L (136-145)
[2025-01-19 15:26] LABS: Bilirubin,Unconjugated 0.5 mg/dL (0.0-1.1); Blood Urea Nitrogen 14 mg/dl (9-20); Estimated Glomerular Filt Rate 67 ml/min (>60); GFR (African American) 81 ML/MIN (>60)
[2025-01-19 15:27] LABS: Alanine Aminotransferase 30 U/L (12-78); Alkaline Phosphatase 97 U/L (38-126); Anion Gap 8.1 mEq/L (5-15); Aspartate Amino Transferase 34 U/L (17-59); Bilirubin,Indirect 0.5 mg/dL (0.0-0.9); Bilirubin,Total 0.5 mg/dl (0.2-1.3); Calcium 9.4 mg/dl (8.4-10.2); Carbon Dioxide 33 mmol/L (22.0-30.0); Cholesterol 179 mg/dl (140-200); Glucose 75 mg/dl (74-100); Magnesium 1.9 mg/dl (1.6-2.3); Total Protein,Serum 7.8 g/dl (6.3-8.2); Triglycerides 291 mg/dl (30-150); VLDL Cholesterol 58 mg/dL (0-40)
[2025-01-19 15:38] LABS: Direct LDL Cholesterol 104.81 mg/dL (100-129)
[2025-01-19 15:40] LABS: Chol/HDL Ratio 8.1 (1-3.5); HDL Cholesterol 22 mg/dl (40-60)
[2025-01-19 15:42] LABS: Troponin I < 0.01 ng/ml (0.00-0.034)
[2025-01-19 15:55] LABS: Free T4 (Free Thyroxine) 1.06 ng/dl (0.78-2.19)
[2025-01-19 15:58] LABS: Thyroid Stimulating Hormone 1.17 uIU/mL (0.465-4.68)
== END 2025-01-19 23:59 | disposition home or self-care (01) ==
LOC: LAB 14:57
PROVIDERS: Visit Provider Physician Assistant
DX: R00.2 Palpitations (principal); R53.83 Other fatigue; I10 Essential (primary) hypertension
CPT/HCPCS: 36415; 80048; 80061; 80076; 83735; 84439; 84443; 84484; 85025

== ENCOUNTER 2025-02-24 09:50 | Emergency (ER) | payer OTHER, SELFPAY ==
[2025-02-24 10:04] VITALS: BP 150/96; PULSE 72; RESP 16; TEMP 36.9; O2SAT 100; BMI 31.8
[2025-02-24 10:05] LABS: POC Glucose,Bedside 112 (70-110)
--- NOTE | 2025-02-24 10:08 | ECG_ITS ---
APPROVED REPORT Exam: Resting ECG HR:71 bpm ECG Measurements Heart Rate 71 AXES NJ 169 P 48 QRSd 111 QRS 38 QT 378 T 30 QTc 401 Conclusion Sinus rhythm Electronically signed by : LEIDY REYES, 02/24/2025 15:30:39
--- NOTE | 2025-02-24 10:20 | PC.NURSE ---
Pt advised he was feeling better, didn't want to tie up an ED room and would make an appt with his PCP in the next couple of days. Discussed options and concerns with patient about leaving, called Kimberly Birch explained the situation and she advised he could be seen in the office today if he was agreeable. Patient was agreeable and advised he would leave now and go down to the office. Pt advised he felt ok to drive, thanked me and left ED triage room. Vitals- 120/90 HR 76 O2 sat 100%
[2025-02-24 10:24] VITALS: BP 120/90; PULSE 76; RESP 16; TEMP 36.9; O2SAT 98
--- NOTE | 2025-02-24 10:24 | PC.NURSE ---
registration called to say patient was leaving and that he was gonna go to pcp office and didnt want to take up a hospital bed since he didnt feel that bad, pt had been triaged, fbs checked, and ekg done
== END 2025-02-24 10:27 | disposition left against medical advice (07) ==
PROVIDERS: Emergency Provider Emergency Medicine
DX: R53.1 Weakness (principal)
CPT/HCPCS: 82962; 93005; 99283

== ENCOUNTER 2025-02-24 10:46 | Outpatient (CLI) | payer OTHER, SELFPAY ==
[2025-02-24 18:34] LABS: Basophils % 0.5 % (0.1-2.0); Eosinophils # 0.1 Kmm3 (0.0-0.4); Eosinophils % 0.9 % (0.1-12.0); Hematocrit 42.4 % (42.0-52.0); Hemoglobin 14.5 g/dL (14.1-18.0); Lymphocytes # 1.3 K/mm3 (0.7-4.5); Lymphocytes % 15.2 % (10-50); Mean Corpuscular HGB Conc 34.2 g/dL (31.8-35.4); Mean Corpuscular Volume 87.6 fl (80-94); Mean Platelet Volume 11.2 fl (7.4-10.4); Monocytes # 0.5 K/mm3 (0.1-1.0); Monocytes % 6.1 % (1.7-9.3); Neutrophils # 6.8 K/mm3 (1.8-7.8); Neutrophils % 77.1 % (37.0-80.0); Nucleated Red Blood Cells # 0 10^3/uL; Nucleated Red Blood Cells % 0 %; Platelet Count 220 K/mm3 (142-424); Red Blood Count 4.84 M/mm3 (4.60-6.20); Red Cell Distribution Width 13.6 % (11.5-17.5); Red Cell Distribution Width-SD 43.2 fL; White Blood Count 8.8 K/mm3 (4.8-10.8)
[2025-02-24 19:02] LABS: Chloride 106 mmol/L (98-107)
[2025-02-24 19:03] LABS: Albumin Level 4.6 g/dl (3.5-5.0); Potassium 3.9 mmoL/L (3.5-5.1); Sodium 140 mmol/L (136-145)
[2025-02-24 19:05] LABS: Alanine Aminotransferase 31 U/L (12-78); Anion Gap 11.9 mEq/L (5-15); Aspartate Amino Transferase 41 U/L (17-59); Blood Urea Nitrogen 13 mg/dl (9-20); Carbon Dioxide 26 mmol/L (22.0-30.0); Estimated Glomerular Filt Rate 82 ml/min (>60); GFR (African American) 100 ML/MIN (>60)
[2025-02-24 19:06] LABS: Albumin/Globulin Ratio 1.5 (1.1-1.8); Alkaline Phosphatase 109 U/L (38-126); Bilirubin,Total 0.7 mg/dl (0.2-1.3); Calcium 9.5 mg/dl (8.4-10.2); Glucose 92 mg/dl (74-100); Total Protein,Serum 7.6 g/dl (6.3-8.2)
== END 2025-02-24 23:59 | disposition home or self-care (01) ==
LOC: LAB.DROPOF 02-28 10:47
PROVIDERS: PCP Family Medicine; Visit Provider Family Medicine
DX: R23.2 Flushing (principal); R61 Generalized hyperhidrosis
CPT/HCPCS: 80053; 83036; 85025

== ENCOUNTER 2025-05-24 16:43 | Emergency (ER) | payer OTHER, SELFPAY ==
--- OUTSIDE RECORDS SUMMARY | 2025-05-11 07:13 | XMS_ITS | Encounter Summary ---
Author Organization [facility] Address [address] [place] [address] Care Team Providers Care Corporate Lawyer Name Role Phone Alejandra Guerra Primary Care Provider [phone] Reason for Referral * Imaging (Routine) - Closed Specialty Diagnoses / Procedures Referred By Jv koenig Referred To Contact Radiology Diagnoses Hepatitis B infection without delta agent without hepatic coma, unspecified chronicity Procedures US Liver Screen Adriana Mendez APRN [address] [address] Phone: tel: fax: Referral ID Status Reason Start Date Expiration Date Visits Re quested Visits Authorized [id number] Closed 10/20/2024 04/21/2026 1 1 Reason for Visit * Imaging (Routine) - Closed Specialty Diagnoses / Procedures Referred By Jv koenig Referred To Contact Radiology Diagnoses Hepatitis B infection without delta agent without hepatic coma, unspecified chronicity Procedures US Liver Screen Adriana Mendez APRN [address] [facility] [address] [place] [phone] Phone: tel: fax: Referral ID Status Reason Start Date Expiration Date Visits Re quested Visits Authorized [id number] Closed 10/20/2024 04/21/2026 1 1 Encounter Details Date Type Department Care Team (Latest Contact Info) Description 05/11/2025 7:13 AM EDT - 05/11/2025 11:59 PM EDT Hospital Encounter [facility] Ultrasound [address] [place] [address] Hepatitis B infection without delta agent without hepatic coma, unspecified chronicity Discharge Disposition: Home or Self Care Social History Tobacco Use Types Packs/Day Years Used Date Smoking Tobacco: Some Days Cigarettes 1 10 Passive Smoke Exposure: Current Smokeless Tobacco: Never Comments:Currently 1/2-1ppd. Has smoked since age 12. Alcohol Use Standard Drinks/Week Comments Not Currently 0 (1 standard drink = 0.6 oz pure alcohol) Alcoholic Drinks/day: Occasional alcohol use PHQ-2 Answer Date Recorded Patient Health Questionnaire-2 Score 0 05/11/2025 PHQ-9 Answer Date Recorded Patient Health Questionnaire-9 Score 1 05/11/2025 PHQ-2A Answer Date Recorded Patient Health Questionnaire-2 Score 0 10/10/2023 Sex and Gender Information Value Date Recorded Sex Assigned at Not on file Legal Sex Male 6:30 PM EDT Gender Identity Not on file Sexual Orientation Not on file documented as of this encounter Functional Status * Over the past 2 weeks, how often have you been bothered by any of the following problems? Question Answer Date of Assessment Author Little interest or pleasure in doing things Not at all 05/11/2025 1:49 PM EDT Annalise Kelly Feeling down, depressed, or hopeless Not at all 05/11/2025 1:49 PM EDT Annalise Kelly Patient Health Questionnaire -2 Score 0 05/11/2025 1:49 PM EDT Annalise Kelly * Question Answer Date of Assessment Author Trouble falling or staying asleep, or sleeping too much Not at all 05/11/2025 1:49 PM EDT Annalise Kelly Feeling tired or having kimi le energy Several days 05/11/2025 1:49 PM EDT Annalise Kelly Poor appetite or overeating Not at all 05/11/2025 1: 49 PM EDT Annalise Kelly Feeling bad about yourself - or that you are a failure or have let yourself or your family down Not at all 05/11/2025 1:49 PM EDT Annalise Kelly Trouble concentrating on things, such as reading the newspaper or watching television Not at all 05/11/2025 1:49 PM EDT Annalise Kelly Moving or speaking so slowly that other people could have noticed? Or the opposite - being so fidgety or restless that you have been moving around a lot more than usual. Not at all 05/11/2025 1:49 PM EDT Annalise Kelly Thoughts that you would be better off or hurting yourself in some way Not at all 05/11/2025 1:49 PM EDT Rafael Kelly Patient Health Questionnaire -9 Score 1 05/11/2025 1:49 PM EDT Annalise Kelly * If you checked off any problems on this questionnaire so far, Question Answer Date of Assessment Author How difficult have these problems made it for you to do your work, take care of things at home, or get along with other people? Not difficult at all 05/11/2025 1:49 PM EDT Rafael Kelly * How difficult have these problems made it for you to do your work, take care of things at home, or get along with other people? Answer Date of Assessment Author Not difficult at all 05/11/2025 1:49 PM EDT Annalise Miller documented as of this encounter Medications at Time of Discharge albuterol 108 (90 Base) MCG/ACT inhaler Inhale 1-2 puffs. Every 4 to 6 hours as needed 05/04/2019 entecavir (Baraclude) 0.5 MG tabletIndications:He patitis B infection without delta agent without hepatic coma, unspecified chronicity Take 1 tablet by mouth daily. Pls stop tenofovir once your start entecavir. 90 tablet 3 05/11/2025 fluticasone-vilanter ol (Breo Ellipta) 200-25 MCG/INH inhaler Take 1 puff by mouth 1 (one) time each day. 05/04/2019 metoprolol succinate XL (Toprol-XL) 100 MG 24 hr tablet Take 1 tablet (100 mg) by mouth 1 (one) time each day. Do not crush or chew. metoprolol succinate XL (Toprol-XL) 50 MG 24 hr tablet Take 1 tablet (50 mg) by mouth 1 (one) time each day. 12/25/2021 Nurtec 75 MG orally disintegrating tablet DISSOLVE 1 TABLET ON THE TONGUE 1 TIME NEEDED FOR MIGRAINE HEADACHE 04/07/2025 omeprazole (PriLOSEC) [address] capsule Take 1 capsule (40 mg) by mouth 1 (one) time each day. 01/28/2024 Qulipta 60 MG tablet Take 60 mg by mouth 1 (one) time each day. 10/05/2024 Trelegy Ellipta 200-62.5-25 MCG/ACT aerosol powder Take 1 puff by mouth. 10/29/2023 documented as of this encounter Plan of Treatment Upcoming Encounters Date Type Department Care Team (Late st Contact Info) Description 06/23/2025 11:00 AM EDT Clinical Support [facility] Medicine Specialties [address] [place] [id number] Nataly Eng, RD [address] [place] [address] 11/11/2025 7:45 AM EST Appointment [facility] Ultrasound [address], [address] [place] [address] 11/18/2025 1:20 PM EST Office Visit [facility] Medicine Specialties [address] [place] [id number] Adriana Mendez, MANAGER FLORAL [address] [place] [phone] documented as of this encounter Procedures Procedure Name Priority Date/Time Associated Diagnosis Comments US LIVER SCREEN Routine 05/11/2025 7:53 AM EDT Hepatitis B infection without delta agent without hepatic coma, unspecified chronicity documented in this encounter Results * US Liver Screen (05/11/2025 7:53 AM EDT) Anatomical Region Laterality Modality Abdomen, Liver Ultrasound Impressions 05/11/2025 8:12 AM EDT Coarse hepatic echotexture which may reflect sequelae of chronic hepatocellular parenchymal disease. No suspicious hepatic observation. Splenomegaly. No imaged ascites. Category Score US-1 Negative. No US evidence of HCC. No observation or Only definitely benign observation(s). Continue with regular screening. Visualization Score Vis A. No or minimal limitations. Limitations if any are unlikely to meaningfully affect sensitivity. The above scoring system and recommendations are based on Ultrasound LI-RADS version 2017. [email or web address] CRITICAL RESULT: No. COMMUNICATION: Per this written report. Drafted by Huy Rodriguez MD on 05/11/2025 8:05 AM Final report signed by Huy Rodriguez MD on 05/11/2025 8:12 AM Narrative 05/11/2025 8:12 AM EDT CLINICAL INDICATION: hcc screening TECHNIQUE: Multiplanar static and cine dominguez scale ultrasound images of the abdomen were obtained, accompanied by selective color Doppler ultrasound images. COMPARISON: 10/20/2024 liver screen ultrasound FINDINGS: Grayscale: Liver: Coarse hepatic echotexture with may reflect sequelae of chronic parenchymal disease. No suspicious hepatic observation. No intrahepatic duct dilatation. Portal Vein: There is antegrade flow within the main portal vein. Gallbladder: Gallstones are present. No gallbladder wall thickening or pericholecystic fluid. Negative sonographic Cristobal sign per performing engineering documentation specialist. Common Duct: 3 mm Spleen: Enlarged spleen measuring 16.8 cm in craniocaudal length. Free Fluid: No imaged ascites. Procedure Note Huy Rodriguez MD - 05/11/2025 CLINICAL INDICATION: hcc screening TECHNIQUE: Multiplanar static and cine dominguez scale ultrasound images of the abdomenwere obtained, accompanied by selective color Doppler ultrasound images. COMPARISON: 10/20/2024 liver screen ultrasound FINDINGS: Grayscale: Liver: Coarse hepatic echotexture with may reflect sequelae of chronicparenchymal disease. No suspicious hepatic observation. No intrahepaticduct dilatation. Portal Vein: There is antegrade flow within the main portal vein. Gallbladder: Gallstones are present. No gallbladder wall thickening orpericholecystic fluid. Negative sonographic Cristobal sign per performingsonographer. Common Duct: 3 mm Spleen: Enlarged spleen measuring 16.8 cm in craniocaudal length. Free Fluid: No imaged ascites. IMPRESSION: Coarse hepatic echotexture which may reflect sequelae of chronichepatocellular parenchymal disease. No suspicious hepatic observation. Splenomegaly. No imaged ascites. Category Score US-1 Negative. No US evidence of HCC. No observation orOnly definitely benign observation(s). Continue with regular screening. Visualization Score Vis A. No or minimal limitations. Limitations if anyare unlikely to meaningfully affect sensitivity. The above scoring system and recommendations are based on UltrasoundLI-RADS version 2017. [email or web address] CRITICAL RESULT: No. COMMUNICATION: Per this written report. Drafted by Huy Rodriguez MD on 05/11/2025 8:05 AM Final report signed by Huy Rodriguez MD on 05/11/2025 8:12 AM us Adriana Mendez APRN IMG US PROCEDURES Final Re sult documented in this encounter Visit Diagnoses Diagnosis Hepatitis B infection without delta agent without hepatic coma, unspecified chronicity documented in this encounter Additional Health Concerns Assessment Noted Time PHQ-9 Depression Total Score: 1 05/11/20 25 1:49 PM EDT A fall risk assessment has been complete d for the patient 05/11/2025 1:50 PM EDT A Body Mass Index follow-up plan has been documented for the patient 05/13/2025 12:39 PM EDT documented as of this encounter Care Teams Corporate Lawyer Relationship Specialty Start Date End Date Alejandra Guerra PA [address] [place] [address] PCP - General 03/16/21 documented as of this encounter
--- OUTSIDE RECORDS SUMMARY | 2025-05-11 14:00 | XMS_ITS | Encounter Summary ---
Author Organization [facility] Address [address] [place] [address] Care Team Providers Care Wood Form Builder Name Role Phone Charlie Shawano Ema PIRES Primary Care Provider [phone] Reason for Referral * Consultation (Routine) - Pending Review Specialty Diagnoses / Procedures Referred By Jv koenig Referred To Contact Diagnoses Hepatitis B infection without delta agent without hepatic coma, unspecified chronicity Metabolic dysfunction-associated steatotic liver disease (MASLD) Adriana Mendez APRN [address] [address] Phone: tel: fax: Referral ID Status Reason Start Date Expiration Date V isits Requested Visits Authorized [id number] Pending Review 05/11/2025 11/10/2026 1 1 * Imaging (Routine) - Pending Review Specialty Diagnoses / Procedures Referred By Jv koenig Referred To Contact Radiology Diagnoses Hepatitis B infection without delta agent without hepatic coma, unspecified chronicity Metabolic dysfunction-associated steatotic liver disease (MASLD) Procedures US Liver Screen Adriana Mendez APRN [address] [facility] [address] [place] [address] Phone: tel: fax: Referral ID Status Reason Start Date Expiration Date V isits Requested Visits Authorized [id number] Pending Review 05/11/2025 11/10/2026 1 1 Reason for Visit * Reason Comments Hepatitis B infection without delta agen t without hepatic c Encounter Details Date Type Department Care Team (Late st Contact Info) Description 05/11/2025 2:00 PM EDT Office Visit [facility] Medicine Specialties [address] [place] [address] Adriana Mendez APRN [address] [place] [address] Hepatitis B infection without delta agent without hepatic coma, unspecified chronicity (Primary Dx); Metabolic dysfunction-associate d steatotic liver disease (MASLD) Social History Tobacco Use Types Packs/Day Years [...] on file documented as of this encounter Last Filed Vital Signs Vital Sign Reading Time Taken Comments Blood Pressure 135/87 05/11/2025 1:48 PM EDT Pulse 71 05/11/2025 1:48 PM EDT Temperature 36.8 C (98.2 F) 05/11/2025 1:48 PM EDT Respiratory Rate - - Oxygen Saturation 97% 05/11/2025 1:48 PM EDT Inhaled Oxygen Concentration - - Weight 113 kg (250 lb 3.6 oz) 05/11/2025 1:48 PM EDT Height 188 cm (6' 2 ) 05/11/2025 1:48 PM EDT Body Mass Index 32.13 05/11/2025 1:48 PM EDT documented in this encounter Functional Status * Over the [...] Annalise Miller documented as of this encounter Miscellaneous Notes * Progress Notes - Adriana Mendez, RADHA - 05/11/2025 2:00 PM EDT Subjective Patient ID: Earnest Sullivan is a 40 y.o. male. Chief Complaint Patient presents with Hepatitis B infection without delta agent without hepatic c HPI : Mr. Sullivan is a 40 y.o. old male seen for follow up for Hepatitis B, h/o hepattis C( treated with mavyret x 8 weeks 2018 ) . H/o IVDU , sober since 2017. Denies h/o heavy alcohol. Hedrinks very rare, about 1 -2 beers every 3-4 months. Has not been hospitalized. Last seen on 10/2024. Tenofovir was changed to entecavir on 10/2024 due to diarrhea and mild elevation in his scr . Denies nausea, abdomen pain, jaundice. He lost 15-20 LBS. WATCHING DIET . He is trying to quit smoking, now down to 1/2 pack a day. PMH : HTN, CAD, S/p cardiac stent. The following portions of the chart were reviewed this encounter and updated as appropriate: Tobacco Allergies Meds Problems Med Hx Surg Hx Fam Hx Review of Systems Constitutional: Positive for fatigue. Negative for chills and fever. HENT: Negative. Respiratory: Negative. Negative for shortness of breath. Cardiovascular: Negative. Negative for chest pain and leg swelling. Gastrointestinal: Negative for abdominal distention, abdominal pain, constipation, diarrhea, nauseaand vomiting. Genitourinary: Negative for dysuria, frequency and hematuria. Musculoskeletal: Positive for myalgias. Negative for arthralgias and back pain. Skin: Negative. Negative for pallor and rash. Neurological: Negative for dizziness, light-headedness and headaches. Hematological: Does not bruise/bleed easily. Psychiatric/Behavioral: Negative for agitation and confusion. All other systems reviewed and are negative. Objective Visit Vitals BP 135/87 Pulse 71 Temp 36.8 ??C (98.2 ??F) (Oral) Ht 1.88 m (6' 2 ) Wt 113 kg (250 lb 3.6 oz) SpO2 97% BMI 32.13 kg/m?? Physical Exam Vitals reviewed. Constitutional: Appearance: Normal appearance. HENT: Head: Normocephalic. Nose: No congestion. Eyes: General: No scleral icterus. Conjunctiva/sclera: Conjunctivae normal. Cardiovascular: Rate and Rhythm: Normal rate and regular rhythm. Heart sounds: Normal heart sounds. Pulmonary: Effort: Pulmonary effort is normal. Breath sounds: Normal breath sounds. Abdominal: General: Abdomen is flat. Bowel sounds are normal. Palpations: Abdomen is soft. Musculoskeletal: General: No signs of injury. Right lower leg: No edema. Left lower leg: No edema. Skin: General: Skin is warm. Neurological: Mental Status: He is alert and oriented to person, place, and time. Psychiatric: Mood and Affect: Mood normal. Behavior: Behavior normal. Hepatitis B Core Total Antibody IgG,IgM Date Value Ref Range Status 11/15/2021 Positive (A) Negative Final Hepatitis B Virus (HBV) Quantitative Interpretation Date Value Ref Range Status 05/11/2025 Not Detected Not Detected Final Hepatitis B Virus (HBV) Quantitative DNA IU/mL Result Date Value Ref Range Status 10/10/2023 <10 <10 IU/mL Final Hepatitis B Virus (HBV) Quantitative Log Result Date Value Ref Range Status 10/10/2023 <1.0 <1 log10 IU/mL Final Hepatitis Be Antigen Date Value Ref Range Status 10/20/2024 Negative Negative Final Hepatitis Be Antibody Date Value Ref Range Status 10/20/2024 Negative Negative Final Lab Results Component Value Date AFP <2.3 05/11/2025 Assessment/Plan Diagnoses and all orders for this visit: Hepatitis B infection without delta agent without hepatic coma, unspecified chronicity - Comprehensive Metabolic Panel, Plasma; Future - CBC W/O Differential; Future - Prothrombin Time/INR; Future - Hepatitis B Virus (HBV) Quantitative PCR; Future - Alpha Fetoprotein, Serum; Future - US Liver Screen; Future - entecavir (Baraclude) 0.5 MG tablet; Take 1 tablet by mouth daily. Pls stop tenofovir once your start entecavir. - Follow Up GI; Future Metabolic dysfunction-associated steatotic liver disease (MASLD) - Comprehensive Metabolic Panel, Plasma; Future - CBC W/O Differential; Future - Prothrombin Time/INR; Future - Hepatitis B Virus (HBV) Quantitative PCR; Future - Alpha Fetoprotein, Serum; Future - US Liver Screen; Future - Follow Up GI; Future # Chronic hepatitis B - Diagnosed in 2014 - liver screen with Elastography 04/07 : coarse liver , splenomegaly, median shear-wave velocity of 1.42 m/sec which in the absence of other known clinical signs rules out compensated advanced chronic liver disease (cACLD). IQR/Med < 0.15 -Changed tenofovir to entecavir 0.5 mg a day on 10/2024 due to tenofovir causing diarrhea and mild Scr elevation. Hep B serology 04/2024 : Hep bsAg and hep BeAg negative , hep B DNA not detected however HepBeAB remains negative . Fibroscan 12/2024 LS 8.3 Kpa, CAP 269. Plan: - continue entecavir - Discussed risk for cirrhosis and HCC. Fibrosis assessment every 2-3 years. - Check routine labs and Hep B serology. # HCC screening AFP <2.3 05/2025 US abdomen 05/11/2025 : reviewed .Coarse hepatic echotexture with may reflect sequelae of chronic parenchymal disease. No suspicious hepatic observation. Repeat US liver screen in 6 months. #MASLD Hepatic steatosis : Discussed heart healthy,low fat, low carb diet. Advised moderate physical activities 30 min per day or 150 min per week. US liver screen 10/20/2024: reviewed . Echogenic liver, most likely hepatic steatosis. No overtly cirrhotic morphologic features. No focal liver lesions detected Elastography: 2-D shear-wave elastography demonstrated a median shear- wave velocity of 1.69 m/sec , F3 . Fibroscan 12/2024 LS 8.3 Kpa, CAP 269. # Health Maintenance - completed HAV series - CRC per PCP follow up 6 months documented in this encounter Plan of Treatment Upcoming Encounters Date Type Department Care Team (Late st Contact Info) Description 06/23/2025 11:00 AM EDT Clinical Support [facility] Medicine Specialties [address] [place] [address] Nataly Eng, RD [address] [place] [address] 11/11/2025 7:45 AM EST Appointment [facility] Ultrasound [address] [place] [address] 11/18/2025 1:20 PM EST Office Visit [facility] [address] [place] [address] Adriana Mendez, STEMMER MACHINE [address] [place] [address] Scheduled Orders Name Type Priority Associated Diagnoses Orde r Schedule US Liver Screen Imaging Routine Hepatitis B infection without delta agent without hepatic coma, unspecified chronicity Metabolic dysfunction-associated steatotic liver disease (MASLD) Expected: 11/11/2025 (Approximate), Expires: 11/12/2026 Scheduled Referrals Name Type Priority Associated Diagnoses Orde r Schedule Follow Up GI Outpatient Referral Routine Hepatitis B infection without delta agent without hepatic coma, unspecified chronicity Metabolic dysfunction-associated steatotic liver disease (MASLD) Expected: 11/11/2025 (Approximate), Expires: 06/11/2026 documented as of this encounter Results * Alpha Fetoprotein, Serum (05/11/2025 2:32 PM EDT) Alpha Fetoprotein, Serum <2.3 <10.0 ng/mL 05/11/2025 4:22 PM EDT [facility] Blood Venous blood specimen / Unknown Venipuncture / Unknown 05/11/2025 2:32 PM EDT 05/11/2025 2:32 PM EDT Narrative [facility] - 05/11/2025 4:22 PM EDT Performed by Tere electrochemiluminescent immunoassay which is traceable to the 1st AFP IRP WHO Reference standard 72/255. Results obtained with different test methods or kits cannot be used interchangeably. Adriana Mendez APRN LAB BLOOD ORDERABLES Final Result Performing Organization Address [facility]/ZIP Co de Phone Number [facility] [address] [place] [address] * Hepatitis B Virus (HBV) Quantitative PCR (05/11/2025 2:32 PM EDT) Pathologist [facility] Hepatitis B Virus (HBV) Quantitative Interpretation Not Detected Not Detected 05/13/2025 10:19 AM EDT [facility] Blood Venous blood specimen / Unknown Venipuncture / Unknown 05/11/2025 2:32 PM EDT 05/11/2025 2:32 PM EDT Narrative [facility] - 05/13/2025 10:19 AM EDT [facility] [place] M2000 HBV Assay is a Real Time in vitro nucleic acid amplification of Hepatitis B Virus (HBV) DNA in human serum in HBV infected individuals. It is intended to quantify HBV in patients who are infected with this virus. The dynamic range for this test is 1.0 to 9.0 log10 and/or 10 to 1,000,000,000 IU/mL. The limit of detection (LOD) for this assay is 10 IU/mL. This assay is FDA approved for clinical use. Adriana Mendez STEMMER MACHINE LAB BLOOD ORDERABLES Final Result Performing Organization Address [facility] Co de Phone Number [facility] [address] [place] [address] * Prothrombin Time/INR (05/11/2025 2:32 PM EDT) Pathologist [facility] Prothrombin Time 13.4 12.0 - 14.3 sec LAB COAGULATION METHOD 05/11/2025 4:36 PM EDT [facility] INR 1.0 0.9 - 1.1 LAB COAGULATION METHOD 05/11/2025 4:36 PM EDT [facility] Blood Venous blood specimen / Unknown Venipuncture / Unknown 05/11/2025 2:32 PM EDT 05/11/2025 2:32 PM EDT Narrative [facility] - 05/11/2025 4:36 PM EDT OPTIMAL INR RANGES FOR PATIENT ON ORAL ANTICOAGULANT THERAPY Prevention of venous thromboembolism INR 2.0 to 3.0 In patients with heart disease: Atrial fibrillation INR 2.0 to 3.0 Valvular heart disease INR 2.0 to 3.0 Tissue heart valves INR 2.0 to 3.0 Mechanical prosthetic valves INR 2.5 to 3.5 Prevention of recurrent [place] INR 2.5 to 3.5 Adriana Mendez STEMMER MACHINE LAB BLOOD ORDERABLES Final Result [facility] [address] [place] [address] * CBC W/O Differential (05/11/2025 2:32 PM EDT) WBC Count 7.49 3.70 - 10.30 10*3/uL LAB HEMATOLOGY METHOD 05/11/2025 4:31 PM EDT [facility] RBC Count 4.96 4.60 - 6.10 10*6/uL LAB HEMATOLOGY METHOD 05/11/2025 4:31 PM EDT [facility] HGB 14.9 13.7 - 17.5 g/dL LAB HEMATOLOGY METHOD 05/11/2025 4:31 PM EDT [facility] HCT 43.1 40.0 - 51.0 % LAB HEMATOLOGY METHOD 05/11/2025 4:31 PM EDT [facility] Platelet Count 209 155 - 369 10*3/uL LAB HEMATOLOGY METHOD 05/11/2025 4:31 PM EDT [facility] MCV 87 79 - 98 fL LAB HEMATOLOGY METHOD 05/11/2025 4:31 PM EDT [facility] MCH 30.0 26.0 - 32.0 pg LAB HEMATOLOGY METHOD 05/11/2025 4:31 PM EDT [facility] MCHC 34.6 30.7 - 35.5 g/dL LAB HEMATOLOGY METHOD 05/11/2025 4:31 PM EDT [facility] RDW 13.1 11.5 - 14.5 % LAB HEMATOLOGY METHOD 05/11/2025 4:31 PM EDT [facility] MPV 10.9 8.8 - 12.5 fL LAB HEMATOLOGY METHOD 05/11/2025 4:31 PM EDT [facility] nRBC 0.0 <=0.0 per 100 WBCs LAB HEMATOLOGY METHOD 05/11/2025 4:31 PM EDT [facility] Blood Venous blood specimen / Unknown Venipuncture / Unknown 05/11/2025 2:32 PM EDT 05/11/2025 2:32 PM EDT us Adriana Mendez APRN LAB BLOOD ORDERABLES Final Result [facility] [address] [place] [address] * (ABNORMAL) Comprehensive Metabolic Panel, Plasma (05/11/2025 2:32 PM EDT) Glucose, Plasma 88 74 - 99 mg/dL 05/11/2025 4:18 PM EDT [facility] BUN, Plasma 13 7 - 21 mg/dL 05/11/2025 4:18 PM EDT [facility] Creatinine, Plasma 1.02 0.70 - 1.20 mg/dL 05/11/2025 4:18 PM EDT [facility] BUN/Creatinine Ratio 13 05/11/2025 4:18 PM EDT [facility] Sodium, Plasma 139 136 - 145 mmol/L 05/11/2025 4:18 PM EDT [facility] Potassium, Plasma 4.1 3.6 - 4.9 mmol/L 05/11/2025 4:18 PM EDT [facility] Chloride, Plasma 102 97 - 107 mmol/L 05/11/2025 4:18 PM EDT [facility] CO2, Plasma 24 22 - 29 mmol/L 05/11/2025 4:18 PM EDT [facility] Anion Gap 13 6 - 16 mmol/L 05/11/2025 4:18 PM EDT [facility] Total Calcium, Plasma 9.5 8.9 - 10.2 mg/dL 05/11/2025 4:18 PM EDT [facility] Total Protein 8.0(H) 6.3 - 7.9 g/dL 05/11/2025 4:18 PM EDT [facility] Albumin, Plasma 4.4 3.5 - 5.2 g/dL 05/11/2025 4:18 PM EDT [facility] AST, Plasma 23 10 - 50 U/L 05/11/2025 4:18 PM EDT [facility] ALT, Plasma 24 10 - 50 U/L 05/11/2025 4:18 PM EDT [facility] Alkaline Phosphatase, Plasma 121(H) 40 - 115 U/L 05/11/2025 4:18 PM EDT [facility] Total Bilirubin, Plasma 0.4 0.2 - 1.1 mg/dL 05/11/2025 4:18 PM EDT [facility] eGFRcr 94.1 mL/min/1.7 3m*2 05/11/2025 4:18 PM EDT [facility] Comment:Reported eGFRcr in m L/min/1.73m2 is based the CKD-EPI 2020 equation that does not use a race coefficient. Blood Venous blood specimen / Unknown Venipuncture / Unknown 05/11/2025 2:32 PM EDT 05/11/2025 2:32 PM EDT us Adriana Mendez STEMMER MACHINE LAB BLOOD ORDERABLES Final Result [facility] [address] [place] [address] documented in this encounter Visit Diagnoses Diagnosis Hepatitis B infection without delta agent without hepatic coma, unspecified chronicity- Primary Metabolic dysfunction-associated steatotic liver disease (MASLD) documented in this encounter Additional Health Concerns Assessment Noted Time PHQ-9 Depression Total Score: 1 05/11/20 25 1:49 PM EDT A fall risk assessment has been complete d for the patient 05/11/2025 1:50 PM EDT A Body Mass Index follow-up plan has been documented for the patient 05/13/2025 12:39 PM EDT documented as of this encounter Care Teams Wood Form Builder Relationship Specialty Start Date End Date Alejandra Guerra PA [address] [place] [address] PCP - General 03/16/21 documented as of this encounter
--- OUTSIDE RECORDS SUMMARY | 2025-05-24 16:49 | XMS_ITS | Encounter Summary ---
Author Organization [facility] Address [address] [place] [address] Care Team Providers Care Corpsman Name Role Phone Alejandra Guerra Primary Care Provider Encounter Details Date Type Department Care Team (Latest Contact Info) Description 05/11/2025 Travel Social History Tobacco Use Types Packs/Day Years [...] Not at all 05/11/2025 1:49 PM EDT Annlaise Kelly Moving or speaking so slowly that [...] Annalise Miller documented as of this encounter Plan of Treatment Upcoming Encounters Date Type Department Care Team (Late st Contact Info) Description 06/23/2025 11:00 AM EDT Clinical Support [facility] Medicine Specialties [address] [place] [address] Nataly Eng, RD [address] [place] [address] 11/11/2025 7:45 AM EST Appointment [facility] Ultrasound [address] [place] [address] 11/18/2025 1:20 PM EST Office Visit [facility] [address] [place] [address] Adriana Mendez, RAILROAD SIGNAL OPERATOR [address] [place] [address] documented as of this encounter Visit Diagnoses Not on filedocumented in this encounter Additional Health Concerns Assessment Noted Time PHQ-9 Depression Total Score: 1 05/11/20 25 1:49 PM EDT A fall risk assessment has been complete d for the patient 05/11/2025 1:50 PM EDT A Body Mass Index follow-up plan has been documented for the patient 05/13/2025 12:39 PM EDT documented as of this encounter Care Teams Corpsman Relationship Specialty Start Date End Date Alejandra Guerra PA [address] [place] [address] PCP - General 03/16/21 documented as of this encounter
--- OUTSIDE RECORDS SUMMARY | 2025-05-24 16:49 | XMS_ITS | Encounter Summary ---
Author Organization [facility] Address [address] [place] [address] Care Team Providers Care Sales Associate Name Role Phone Charlie Alejandra Ema PIRES Primary Care Provider [phone] Encounter Details Date Type Department Care Team (Late st Contact Info) Description 05/12/2025 Results Follow-Up [facility] Medicine Specialties [address] [place] [address] VanessaAdriana marquez D, COLORMAN [address] [place] [address] Social History Tobacco Use Types Packs/Day Years [...] on file documented as of this encounter Plan of Treatment Upcoming Encounters Date Type Department Care Team (Late st Contact Info) Description 06/23/2025 11:00 AM EDT Clinical Support [facility] Medicine Specialties [address] [place] [address] Nataly Eng, RD [address] [place] [address] 11/11/2025 7:45 AM EST Appointment [facility] Ultrasound [address] [place] [phone] 11/18/2025 1:20 PM EST Office Visit [facility] Medicine Specialties [address] [place] [address] Adriana Mendez, COLORMAN [address] [place] [address] documented as of this encounter [...] documented as of this encounter Care Teams Sales Associate Relationship Specialty Start Date End Date Alejandra Guerra PA [address] [place], [place] [id number] PCP - General 03/16/21 documented as of this encounter
--- OUTSIDE RECORDS SUMMARY | 2025-05-24 16:50 | XMS_ITS | Encounter Summary ---
Author Organization [facility] Address [address] [place] [address] Care Team Providers Care Associate Juvenile Court Judge Name Role Phone Alejandra Guerra Primary Care Provider [phone] Reason for Referral * Consultation (Routine) - Closed Specialty Diagnoses / Procedures Referred By Jv koenig Referred To Contact Sports Medicine Diagnoses Right knee pain, unspecified chronicity [facility] [address] [place] [address] Carlos Guerra MD [address] [address] Phone: tel: fax: Referral ID Status Reason Start Date Expiration Date V isits Requested Visits Authorized [id number] Closed Specialty Services Required 05/15/2022 11/14/2023 1 1 Encounter Details Date Type Department Care Team (Late st Contact Info) Description 05/15/2022 Community [facility] [address] [place] [address] Keron Shahid Right knee pain, unspecified chronicity (Primary Dx) Social History Tobacco Use Types Packs/Day Years Used Date Smoking Tobacco: Every Day Smokeless Tobacco: Never Alcohol Use Standard Drinks/Week Comments Not Currently 0 (1 standard drink = 0.6 oz pure alcohol) Alcoholic Drinks/day: Occasional alcohol use Sex and Gender Information Value Date Recorded Sex Assigned at Not on file Legal Sex Male 6:30 PM EDT Gender Identity Not on file Sexual Orientation Not on file COVID-19 Exposure Response Date Recorded In the last 10 days, have yo u been in contact with someone who was confirmed or suspected to have Coronavirus/COVID-19? No / Unsure 05/10/2022 6:54 AM EDT documented as of this encounter Plan of Treatment Upcoming Encounters Date Type Department Care Team (Late st Contact Info) Description 06/23/2025 11:00 AM EDT Clinical Support [facility] Medicine Specialties [address] [place] [address] Nataly Eng, RD [address] [place] [address] 11/11/2025 7:45 AM EST Appointment [facility] Ultrasound [address] [place] [address] 11/18/2025 1:20 PM EST Office Visit [facility] Medicine Specialties [address] [place] [address] Adriana Mendez, ASSAULT BOAT [employer] [address] [place] [phone] Scheduled Referrals Name Type Priority Associated Diagnoses Orde r Schedule Ambulatory referral to Orthopaedics Sports Medicine Outpatient Referral Routine Right knee pain, unspecified chronicity Expected: 05/15/2022 (Approximate), Expires: 11/15/2023 documented as of this encounter Visit Diagnoses Diagnosis Right knee pain, unspecified chronicity- Primary documented in this encounter Additional Health Concerns Assessment Noted Time A fall risk assessment has been complete d for the patient 05/15/2022 8:47 AM EDT documented as of this encounter Care Teams Associate Juvenile Court Judge Relationship Specialty Start Date End Date Alejandra Guerra PA [address] [place] [address] PCP - General 03/16/21 documented as of this encounter
--- OUTSIDE RECORDS SUMMARY | 2025-05-24 16:50 | XMS_ITS | Clinical Summary ---
Author Organization [facility] Address [address] [place] [address] Care Team Providers Care Distributing Clerk Name Role Phone Charlie [place] Ema PIRES Primary Care Provider [phone] Allergies Active Allergy Reactions Criticality Noted Date Comments Hydrocodone Other - please docum ent in the comment field Low 05/04/2019 Medications fluticasone-vilant alma rosa (Breo Ellipta) 200-25 MCG/INH inhaler Take 1 puff by mouth 1 (one) time each day. 05/04/20 19 Active albuterol 108 (90 Base) MCG/ACT inhaler Inhale 1-2 puffs. Every 4 to 6 hours as needed 05/04/20 19 Active metoprolol succinate XL (Toprol-XL) 100 MG 24 hr tablet Take 1 tablet (100 mg) by mouth 1 (one) time each day. Do not crush or chew. Active metoprolol succinate XL (Toprol-XL) 50 MG 24 hr tablet Take 1 tablet (50 mg) by mouth 1 (one) time each day. 12/25/19 22 Active omeprazole (PriLOSEC) [address] capsule Take 1 capsule (40 mg) by mouth 1 (one) time each day. 01/28/20 24 Active Qulipta 60 MG tablet Take 60 mg by mouth 1 (one) time each day. 10/05/20 24 Active Trelegy Ellipta 200-62.5-25 MCG/ACT aerosol powder Take 1 puff by mouth. 10/29/20 23 Active Nurtec 75 MG orally disintegrating tablet DISSOLVE 1 TABLET ON THE TONGUE 1 TIME NEEDED FOR MIGRAINE HEADACHE 04/07/20 25 Active entecavir (Baraclude) 0.5 MG tabletIndications: Hepatitis B infection without delta agent without hepatic coma, unspecified chronicity Take 1 tablet by mouth daily. Pls stop tenofovir once your start entecavir. 90 tablet 3 05/11/20 25 026 Active entecavir (Baraclude) 0.5 MG tablet Take 1 tablet (0.5 mg) by mouth 1 (one) time each day. Pls stop tenofovir once your start entecavir. 90 tablet 3 10/20/20 24 025 Discontin ued(Reord er) Active Problems Problem Noted Date Diagnosed Date Injury of right knee 08/06/2022 Acute pain of right knee 05/28/2022 Degeneration, articular cartilage, patella, righ t 05/28/2022 Effusion of right knee 05/28/2022 Obesity (BMI 30-39.9) 05/15/2022 Hepatitis B infection withou t delta agent without hepatic coma 11/15/2021 Gastroesophageal reflux disease 11/15/2021 Encounters Date Type Department Care Team Description 05/12/2025 Results [facility] [address] [place] [address] Adriana Mendez APRN 05/11/2025 2:00 PM EDT Office Visit [facility] [address] [place] [address] Adriana Mendez, AUTOMATIC SHIRRING MACHINE OPERATOR Hepatitis B infection without delta agent without hepatic coma, unspecified chronicity (Primary Dx); 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 [place] [address] Hepatitis B infection without delta agent without hepatic coma, unspecified chronicity Discharge Disposition: Home or Self Care 05/11/2025 Travel from Last 3 Months Immunizations Immunization Administration Dates Next Due Hep A, Adult 06/07/2019,09/27/2015 Hep A, Unspecified 09/27/2015 MMR 05/27/1996 Family History Medical History Relation Name Comments Diabetes Mother Ana Fernandez Hepatitis Mother Ana Fernandez Liver disease Mother Ana Fernandez Stroke Other 1 Emphysema Other 2 Anesthesia problems Neg Hx Malig Hyperthermia Neg Hx Relation Name Status Comments Mother Ana Fernandez Other 1 Other 2 Social History Tobacco Use Types Packs/Day Years Used Date Smoking Tobacco: Some Days Cigarettes 1 10 Passive Smoke Exposure: Current Smokeless Tobacco: Never Tobacco Cessation:Ready to Q uit: Not Asked; Counseling Given: Not Answered Comments:Currently 1/2-1ppd. Has smoked since age 12. [...] on file Sexual Orientation Not on file Last Filed Vital Signs Vital Sign Reading Time Taken Comments Blood Pressure 135/87 05/11/2025 1:48 PM EDT Pulse 71 05/11/2025 1:48 PM EDT Temperature 36.8 C (98.2 F) 05/11/2025 1:48 PM EDT Respiratory Rate 16 12/09/2023 8:09 AM EST Oxygen Saturation 97% 05/11/2025 1:48 PM EDT Inhaled Oxygen Concentration - - Weight 113 kg (250 lb 3.6 oz) 05/11/2025 1:48 PM EDT Height 188 cm (6' 2 ) 05/11/2025 1:48 PM EDT Body Mass Index 32.13 05/11/2025 1:48 PM EDT Plan of Treatment Upcoming Encounters Date Type Department Care Team (Late st Contact Info) Description 06/23/2025 11:00 AM EDT Clinical Support [facility] Medicine Specialties [address] [place] [phone] Nataly Eng, RD [address] [place] [phone] 11/11/2025 7:45 AM EST Appointment [facility] Ultrasound [address] [place] [address] 11/18/2025 1:20 PM EST Office Visit [facility] [address] [place] [address] Adriana Mendez D, AUTOMATIC SHIRRING MACHINE OPERATOR [address] [place] [address] Health Maintenance Due Date Last Done Comments [facility]-HIV Screening 1983 [facility]-/Child/Adol SDOH Screenings 1983 [facility]-Varicella Vaccines (1 of 2 - 13+ 2-dose series) 06/24/1996 HPV Vaccines (1 - Male 3-dose series) 1998 [facility]- SDOH Screenings 2001 [facility]-Adult SDOH Screenings 2001 [facility]-DTaP,Tdap,and Td Vaccines (1 - Tdap) 2002 [facility]-Hepatitis B Vaccines (1 of 3 - 19+ 3-dose series) 2002 05/11/2025, 05/11/2025, 05/11/2025, Additional history exists [facility]-Pneumococcal Vaccine: Pediatrics (0 to 5 Years) and At-Risk Patients (6 to 49 Years) (1 of 2 - PCV) 2002 [id number] Vaccine (1 - season) 2024 [facility]-Influenza Vaccine (#1) 2025 [facility]-Depression Screening 05/11/2026 05/11/2025, 07/2025 [facility]-Zoster Vaccines (1 of 2) 2033 [facility]-Hepatitis A Vaccines Completed 019, 09/27/2015, 09/27/2015 [facility]-Hepatitis C Screening Completed 2018, 06/07/2019, 05/04/2019, Additional history exists [facility]-Obesity Intervention Completed 025, 12/23/2024, 10/20/2024, Additional history exists [facility]-HIB Vaccines Aged Out No longer e ligible based on patient's age to complete this topic [facility]-IPV Vaccines Aged Out No longer e ligible based on patient's age to complete this topic [facility]-Rotavirus Vaccines Aged Out No lo nger eligible based on patient's age to complete this topic Procedures Procedure Name Priority Date/Time Associated Diagnosis Comments COMPREHENSIVE METABOLIC PANEL, PLASMA Routine 05/11/2025 2:32 PM EDT Hepatitis B infection without delta agent without hepatic coma, unspecified chronicity Metabolic dysfunction-associa daniela steatotic liver disease (MASLD) CBC W/O DIFFERENTIAL Routine 05/11/2025 2:32 PM EDT Hepatitis B infection without delta agent without hepatic coma, unspecified chronicity Metabolic dysfunction-associa daniela steatotic liver disease (MASLD) PROTHROMBIN TIME(PT) / INR Routine 05/11/2025 2:32 PM EDT Hepatitis B infection without delta agent without hepatic coma, unspecified chronicity Metabolic dysfunction-associa daniela steatotic liver disease (MASLD) HEPATITIS B VIRUS (HBV) QUANTITATIVE PCR Routine 05/11/2025 2:32 PM EDT Hepatitis B infection without delta agent without hepatic coma, unspecified chronicity Metabolic dysfunction-associa daniela steatotic liver disease (MASLD) ALPHA FETOPROTEIN, SERUM Routine 05/11/2025 2:32 PM EDT Hepatitis B infection without delta agent without hepatic coma, unspecified chronicity Metabolic dysfunction-associa daniela steatotic liver disease (MASLD) US LIVER SCREEN Routine 05/11/2025 7:53 AM EDT Hepatitis B infection without delta agent without hepatic coma, unspecified chronicity HEPATITIS C VIRUS (HCV) QUANTITATIVE PCR Routine 07/06/2019 12:51 PM EDT from Last 3 Months or Most Recently Relevant to Health Maintenance Results * Alpha Fetoprotein, Serum (05/11/2025 2:32 PM EDT) Pathologist [facility] Alpha Fetoprotein, Serum <2.3 <10.0 ng/mL 05/11/2025 4:22 PM EDT [facility] Blood Venous blood specimen / Unknown Venipuncture / Unknown 05/11/2025 2:32 PM EDT 05/11/2025 2:32 PM EDT Narrative [facility] - 05/11/2025 4:22 PM EDT Performed by Tere electrochemiluminescent immunoassay which is traceable to the 1st [facility] IRP WHO Reference standard 72/255. Results obtained with different test methods or kits cannot be used interchangeably. 3LM D [employer] LAB BLOOD ORDERABLES Final Result Performing Organization Address [facility] [place] [address] * Hepatitis B Virus (HBV) Quantitative PCR (05/11/2025 2:32 PM EDT) [facility] Hepatitis B Virus (HBV) Quantitative Interpretation Not Detected Not Detected 05/13/2025 10:19 AM EDT [facility] Blood Venous blood specimen / Unknown Venipuncture / Unknown 05/11/2025 2:32 PM EDT 05/11/2025 2:32 PM EDT Narrative [facility] - 05/13/2025 10:19 AM EDT [facility] [...] FDA approved for clinical use. us Adriana D Vanessa AUTOMATIC SHIRRING MACHINE OPERATOR LAB BLOOD ORDERABLES Final Result Performing Organization Address [facility]/[place] [address] * Prothrombin Time/INR (05/11/2025 2:32 PM EDT) Prothrombin Time 13.4 12.0 - 14.3 sec LAB COAGULATION METHOD 05/11/2025 4:36 PM EDT [facility] INR 1.0 0.9 - 1.1 LAB COAGULATION METHOD 05/11/2025 4:36 PM EDT [facility] Blood Venous blood specimen / Unknown Venipuncture / Unknown 05/11/2025 2:32 PM EDT 05/11/2025 2:32 PM EDT Narrative [facility] - 05/11/2025 4:36 PM EDT OPTIMAL INR RANGES FOR PATIENT ON ORAL ANTICOAGULANT THERAPY Prevention of venous thromboembolism INR 2.0 to 3.0 In patients with heart disease: Atrial fibrillation INR 2.0 to 3.0 Valvular heart disease INR 2.0 to 3.0 Tissue heart valves INR 2.0 to 3.0 Mechanical prosthetic valves INR 2.5 to 3.5 Prevention of recurrent NM INR 2.5 to 3.5 us Adriana Mendez AUTOMATIC SHIRRING MACHINE OPERATOR LAB BLOOD ORDERABLES Final Result [facility] [address] [place] [address] * CBC W/O Differential (05/11/2025 2:32 PM EDT) WBC Count 7.49 3.70 - 10.30 10*3/uL LAB HEMATOLOGY METHOD 05/11/2025 4:31 PM EDT [facility] RBC Count 4.96 4.60 - 6.10 10*6/uL LAB HEMATOLOGY METHOD 05/11/2025 4:31 PM EDT [facility] HGB 14.9 13.7 - 17.5 g/dL LAB HEMATOLOGY METHOD 05/11/2025 4:31 PM EDT [facility] HCT 43.1 40.0 - 51.0 % LAB HEMATOLOGY METHOD 05/11/2025 4:31 PM EDT [facility] Platelet Count 209 155 - 369 10*3/uL LAB HEMATOLOGY METHOD 05/11/2025 4:31 PM EDT [facility] MCV 87 79 - 98 fL LAB HEMATOLOGY METHOD 05/11/2025 4:31 PM EDT [facility] MCH 30.0 26.0 - 32.0 pg LAB HEMATOLOGY METHOD 05/11/2025 4:31 PM EDT [facility] MCHC 34.6 30.7 - 35.5 g/dL LAB HEMATOLOGY METHOD 05/11/2025 4:31 PM EDT [facility] RDW 13.1 11.5 - 14.5 % LAB HEMATOLOGY METHOD 05/11/2025 4:31 PM EDT [facility] MPV 10.9 8.8 - 12.5 fL LAB HEMATOLOGY METHOD 05/11/2025 4:31 PM EDT [facility] nRBC 0.0 <=0.0 per 100 WBCs LAB HEMATOLOGY METHOD 05/11/2025 4:31 PM EDT [facility] Blood Venous blood specimen / Unknown Venipuncture / Unknown 05/11/2025 2:32 PM EDT 05/11/2025 2:32 PM EDT Adriana Mendez AUTOMATIC SHIRRING MACHINE OPERATOR LAB BLOOD ORDERABLES Final Result [facility] [address] [place] [address] * (ABNORMAL) Comprehensive Metabolic Panel, Plasma (05/11/2025 2:32 PM EDT) Glucose, Plasma 88 74 - 99 mg/dL 05/11/2025 4:18 PM EDT [facility] BUN, Plasma 13 7 - 21 mg/dL 05/11/2025 4:18 PM EDT [facility] Creatinine, Plasma 1.02 0.70 - 1.20 mg/dL 05/11/2025 4:18 PM EDT [facility] BUN/Creatinine Ratio 13 05/11/2025 4:18 PM EDT [facility] Sodium, Plasma 139 136 - 145 mmol/L 05/11/2025 4:18 PM EDT [facility] Potassium, Plasma 4.1 3.6 - 4.9 mmol/L 05/11/2025 4:18 PM EDT [facility] Chloride, Plasma 102 97 - 107 mmol/L 05/11/2025 4:18 PM EDT [facility] CO2, Plasma 24 22 - 29 mmol/L 05/11/2025 4:18 PM EDT [facility] Anion Gap 13 6 - 16 mmol/L 05/11/2025 4:18 PM EDT [facility] Total Calcium, Plasma 9.5 8.9 - 10.2 mg/dL 05/11/2025 4:18 PM EDT [facility] Total Protein 8.0(H) 6.3 - 7.9 g/dL 05/11/2025 4:18 PM EDT [facility] Albumin, Plasma 4.4 3.5 - 5.2 g/dL 05/11/2025 4:18 PM EDT [facility] AST, Plasma 23 10 - 50 U/L 05/11/2025 4:18 PM EDT [facility] ALT, Plasma 24 10 - 50 U/L 05/11/2025 4:18 PM EDT [facility] Alkaline Phosphatase, Plasma 121(H) 40 - 115 U/L 05/11/2025 4:18 PM EDT [facility] Total Bilirubin, Plasma 0.4 0.2 - 1.1 mg/dL 05/11/2025 4:18 PM EDT [facility] eGFRcr 94.1 mL/min/1.7 3m*2 05/11/2025 4:18 PM EDT [facility] Comment:Reported eGFRcr in m L/min/1.73m2 is based the CKD-EPI 2020 equation that does not use a race coefficient. Blood Venous blood specimen / Unknown Venipuncture / Unknown 05/11/2025 2:32 PM EDT 05/11/2025 2:32 PM EDT us Adriana Mendez APRN LAB BLOOD ORDERABLES Final Result [facility] [address] [place] [address] * US Liver Screen (05/11/2025 7:53 AM [...] are based on Ultrasound LI-RADS version 2017. [email or web address] CRITICAL RESULT: No. COMMUNICATION: Per [...] fluid. Negative sonographic Cristobal sign per performing pharmacy teacher. Common Duct: 3 mm Spleen: Enlarged spleen [...] recommendations are based on UltrasoundLI-RADS version 2017. [email or web address] CRITICAL RESULT: No. COMMUNICATION: Per this written report. Drafted by Huy Rodriguez MD on 05/11/2025 8:05 AM Final report signed by Huy Rodriguez MD on 05/11/2025 8:12 AM us Adriana Ema Mendez AUTOMATIC SHIRRING MACHINE OPERATOR IMG US PROCEDURES Final Re sult * Hepatitis C Virus (HCV) Quantitative PCR (07/06/2019 12:51 PM EDT) Hepatitis C Virus (HCV) Quantitative Viral Load Log Result <1.08 [facility] Hepatitis C Virus (HCV) Quantitative IU/mL Result <12 [facility] HCV Quantitative PCR Comment Reference Interval: Not Detected, Log IU/mL <1.08, IU/mL <12 [facility] Comment: [facility] M2000 HCV test is a Real Time in vitro nucleic acid amplification test for the quantitation of Hepatitis C Viral (HCV) RNA in human serum in HCV-infected individuals. It is intended for use as an aid in the management of HCV-infected individuals undergoing anti-viral therapy. The dynamic range for this test is log10 = 1.08 to 8.00and/or 12 to 100,000,000 IU/mL. The limit of detection (LOD) for this assay is 12 IU/mL and the limit of quantitation (LOQ) is 12 IU/mL. This assay is FDA approved for clinical use. 07/06/2019 12:5 1 PM EDT 07/06/2019 1:57 PM EDT Narrative [facility] - 07/07/2019 9:46 PM EDT HCV RNA NOT DETECTED HCV RNA NOT DETECTED Kenna Gross APRN LAB BLOOD ORDERABLES Final Re sult [facility] from Last 3 Months or Most Recently Relevant to Health Maintenance Insurance [facility] [place] [address] [place] [address] [facility] [place] [address] Care Teams Distributing Clerk Relationship Specialty Start Date End Date Alejandra Guerra PA [address] [place] [address] PCP - General 03/16/21
[2025-05-24 16:56] VITALS: BP 173/112; PULSE 77; RESP 18; TEMP 36.8; O2SAT 98; BMI 32.1
--- NOTE | 2025-05-24 16:56 | CT_ITS ---
PROCEDURE INFORMATION: Exam: CT Head Without Contrast Exam date and time: 05/24/2025 5:36 PM Age: 40 years old Clinical indication: Pain; Headache; Additional info: Headache left sided TECHNIQUE: Imaging protocol: Computed tomography of the head without contrast. Radiation optimization: All CT scans at this facility use at least one of these dose optimization techniques: automated exposure control; mA and/or kV adjustment per patient size (includes targeted exams where dose is matched to clinical indication); or iterative reconstruction. COMPARISON: MR HEAD/BRAIN WO/W CON 07/13/2024 4:37 PM FINDINGS: Brain: Normal. No hemorrhage. Unremarkable white matter. No mass effect. Cerebral ventricles: No ventriculomegaly. Paranasal sinuses: Mild mucosal thickening and retention cysts in the paranasal sinuses. Mastoid air cells: Small right mastoid effusion. Bones: Unremarkable. No acute fracture. Soft tissues: Unremarkable. IMPRESSION: No acute intracranial findings.
[2025-05-24 17:00] VITALS: BP 170/118; PULSE 72; O2SAT 98
--- NOTE | 2025-05-24 17:01 | ED_ITS ---
<Statement entered by Nayely Grullon DO - 05/25/25 20:12> I was consulted by the MORALES, and we discussed the complexity of problems being addressed. I approve the treatment and management plan for this patient's care in the emergency department, thus performing a substantial portion of the medical decision making. Nayely Grullon DO Discharge Plan Disposition Patient Disposition: Home, Self-Care Prescriptions Prescriptions: No Action aspirin [Adult Low Dose Aspirin] 81 mg tablet,delayed release (DR/EC) 81 mg PO DAILY Qty: 30 5RF fluticasone propionate [Flonase Allergy Relief] 50 mcg/actuation spray,suspension 2 spray intranasal DAILY 90 Days Qty: 16 2RF Rx Instructions: administer into each nostril Trelegy Ellipta 200-62.5-25 mcg blister with device 1 inh inhalation DAILY 90 Days Qty: 90 3RF ipratropium-albuterol 0.5 mg-3 mg(2.5 mg base)/3 mL solution for nebulization 3 ml inhalation Q6H PRN (Reason: shortness of breath or wheezing) Qty: 90 3RF entecavir 0.5 mg tablet PO Nurtec ODT 75 mg tablet,disintegrating 75 mg PO ONCE PRN (Reason: migraine headache) Qty: 8 2RF Zavzpret 10 mg/actuation spray,non-aerosol 1 spray intranasal ONCE PRN (Reason: migraine headache) Qty: 6 5RF Qulipta 60 mg tablet See Rx Instructions .ROUTE .COMPLEX Qty: 30 5RF Dose Instruction: TAKE 1 TABLET BY MOUTH DAILY Rx Instructions: TAKE 1 TABLET BY MOUTH DAILY omeprazole 40 mg capsule,delayed release(DR/EC) 40 mg PO DAILY Qty: 90 1RF metoprolol succinate 100 mg tablet extended release 24 hr 100 mg PO DAILY Qty: 90 1RF albuterol sulfate 90 mcg/actuation HFA aerosol inhaler See Rx Instructions .ROUTE .COMPLEX Qty: 18 4RF Dose Instruction: INHALE 2 PUFFS EVERY FOUR TO SIX HOURS NEEDED FOR SHORTNESS OF BREATH OR WHEEZING Rx Instructions: INHALE 2 PUFFS EVERY FOUR TO SIX HOURS NEEDED FOR SHORTNESS OF BREATH OR WHEEZING Referrals Follow up/Referrals: Provider,Referral, MD [Primary Care Provider, Medical] - See instructions Activity Restrictions/Add. Instructions Additional Instructions/Restrictions: Follow-up with PCP for pain treatment. Return to ED for any worsening headache Clinical Impressions Clinical Impression: Headache, Migraine Instructions Patient Instructions: DI for Migraine Print Language Print Language: Icelandic Discharge ED Provider: Nayely Grullon Adult HPI General Chief complaint: Headache Stated complaint: headache Time Seen by Provider: 05/24/25 16:49 History of Present Illness HPI narrative: 40-year-old male presents to the ED today for complaint of headache for 1-1/2 weeks. This is happening on and off. He is seeing floaters as well. He has some nausea that comes and goes. Yesterday he vomited twice. He takes Nurtec, Qulipta and a nasal spray that he uses for migraines. Patient blood pressure here is a little elevated at systolic 172. He says it is typically he takes his metoprolol 100 mg a day and his systolic is usually 136. 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 Patient has headache in the left side of his head with stiff neck on the left side. He says the pain just goes down into the left neck. He says he is taken his meds and they just have not been working. Related Data Home Medications ?Medication ?Instructions ?Recorded ?Confirmed entecavir 0.5 mg tablet mg PO 11/09/24 05/16/25 Previous Rx's ?Medication ?Instructions ?Recorded aspirin 81 mg tablet,delayed 81 mg PO DAILY #30 tabs 0 03/06/21 release (Adult Low Dose Aspirin) ipratropium 0.5 mg-albuterol 3 mg 3 ml inhalation Q6H PRN shortness 05/13/23 (2.5 mg base)/3 mL nebulization of breath or wheezing #90 mL soln fluticasone propionate 50 2 spray intranasal DAILY 90 days 06/03/23 mcg/actuation nasal #16 grams spray,suspension (Flonase Allergy Relief) fluticasone fur. 200 mcg-umeclid 1 inh inhalation SHARIF Y 90 days #90 07/23/23 62.5 mcg-vilant 25 mcg ea inhalat.powder (Trelegy Ellipta) atogepant 60 mg tablet (Qulipta) See Rx Instructions . Route 02/07/25 .COMPLEX #30 tabs rimegepant 75 mg disintegrating 75 mg PO ONCE PRN migr rima 06/02/25 tablet (Nurtec ODT) headache #8 tabs metoprolol succinate 100 mg 100 mg PO DAILY #90 tabs 0 04/06/25 tablet,extended release 24 hr omeprazole 40 mg capsule,delayed 40 mg PO DAILY #90 ca ps 04/06/25 release zavegepant 10 mg/actuation nasal 1 spray intranasal ON CE PRN 05/16/25 spray (Zavzpret) migraine headache #6 ea albuterol sulfate 90 mcg/actuation See Rx Instructions .Route 05/19/25 aerosol inhaler .COMPLEX #18 grams Allergies Allergy/AdvReac Type Severity Reaction Status Date / Time hydrocodone Allergy Verified 05/16/25 16:08 Sulfa (Sulfonamide Allergy Verified 05/16/25 16:08 Antibiotics) [facility] Disclaimer: The information contained in this section may have been updated after the patient was seen, as this information can be updated by other users. Medical History History of hypertension History of hepatitis History of gastroesophageal reflux (GERD) TMJ (dislocation of temporomandibular joint) Recurrent headache Improved Neck pain History of pilonidal cyst Frequent headaches SOB (shortness of breath) on exertion Gallstones Abnormal cardiovascular stress test Angina pectoris Allergic rhinitis ILD (interstitial lung disease) Dyspnea on exertion Chest discomfort Asthma with acute exacerbation Cough Dyspnea Hypertension Surgical History History of shoulder surgery History of right knee surgery Family History Other Cancer Coronary artery disease Diabetes Heart attack Hypertension No significant family history Stroke Substance abuse Social History Smoking Status: Never smoker second hand exposure: Yes alcohol intake: never substance use type: former substance user and heroin current occupational status: employed Travel in the last 8 weeks?: None household members: spouse housing: house marital status: number of children: 2 Have you lived/traveled outside [place] in past 30 days?: No Contact w/someone who lives/traveled outside US past 30 days?: No Exposure to someone with infectious disease in past 14 days?: No Do you have a fever (greater than 100.4 F or 38 C)?: No Have you tested positive for COVID-19?: No Exposed to someone with COVID-19 in past 14 days?: No Do you have a sore throat?: No Do you have a cough?: No Do you have any weakness?: No Do you have any diarrhea?: No Are you experiencing any unusual bleeding?: No Do you have any muscle aches/pain?: No Do you have any abdominal pain?: No Are you experiencing loss of taste or smell?: No Other Medical History Have you received the Flu Vaccine for this season: No Have you received the Pneumonia Vaccine: No ROS Obtained: Yes Systems reviewed as appropriate & no additional complaints except as documented Constitutional Constitutional: Reports as per HPI Physical Exam General General appearance: alert Head Head exam: normocephalic Eye Eye exam: Present PERRL and EOMI ENT ENT exam: Present normal oropharynx and mucous membranes moist Neck Neck exam: Present full ROM and trachea midline Respiratory Respiratory exam: Present normal lung sounds bilaterally Cardiovascular Cardiovascular exam: Present regular rate, normal rhythm, normal heart sounds, +S1 and +S2 Abdominal Exam Abdominal exam: Present soft and normal bowel sounds Extremities Exam Extremities exam: Present normal inspection, full ROM and normal capillary refill Neurological Exam Neurological exam: Present alert and oriented X3 Psychiatric Psychiatric exam: Present normal affect Skin Skin exam: Present warm, dry and intact Medical Decision Making Medical Records Screening: Per USPSTF and CDC recommendations, given the prevalence of disease in our region, it is our hospital?s policy to screen for HIV and viral Hepatitis for all patients aged 18 and over and those with ongoing risk factors. Brody Inquiry Pt receiving controlled substance: No Brody was queried for this patient: No Vital Signs: 05/24/25 16:56 05/24/25 17:00 05/24/25 17:30 Temperature 98.3 F Temperature Source Oral Pulse Rate 72 62 Pulse Rate [Right] 77 Respiratory Rate 18 Blood Pressure 170/118 H 129/88 Blood Pressure [Right Radial Artery] 173/112 H Blood Pressure Mean [Right Radial Artery] 132 Blood Pressure Source [Right Radial Artery] Automatic Cuff Blood Pressure Position [Right Radial Artery] Sitting 02 Sat by Pulse Oximetry 98 98 99 Oxygen Delivery Method Room Air Room Air Room Air 05/24/25 18:00 05/24/25 18:15 05/24/25 18:58 Temperature 98.9 F Temperature Source Pulse Rate 60 70 81 Pulse Rate [Right] Respiratory Rate 20 Blood Pressure 132/78 146/97 H 146/97 H Blood Pressure [Right Radial Artery] Blood Pressure Mean [Right Radial Artery] Blood Pressure Source [Right Radial Artery] Blood Pressure Position [Right Radial Artery] 02 Sat by Pulse Oximetry 96 99 Oxygen Delivery Method Room Air Room Air Lab Data Lab Results 05/24/25 17:20: WBC 9.1, RBC 4.56 L, Hgb 13.7 L, Hct 38.6 L, MCV 84.6, MCH 30.0, MCHC 35.5 H, RDW 13.0, Plt Count 207, MPV 10.9 H, Neut % (Auto) 76.7, Lymph % (Auto) 15.7, Wirt % (Auto) 5.8, Eos % (Auto) 1.2, Baso % (Auto) 0.3, Neut # (Auto) 7.0, Lymph # (Auto) 1.4, Wirt # (Auto) 0.5, Eos # (Auto) 0.1, Baso # (Auto) 0.0, Sodium 137, Potassium 3.9, Chloride 104, Carbon Dioxide 26, Anion Gap 10.9, BUN 15, Creatinine 1.00, Estimated Creat Clear 154, Estimated GFR 82, Est GFR ( Amer) 99, Glucose 92, Calcium 9.6, Magnesium 2.0, Total Bilirubin 0.9, AST 41, ALT 29, Alkaline Phosphatase 92, Total Protein 8.3 H, Albumin 4.7, Globulin 3.6 H, Albumin/Globulin Ratio 1.3, Lipase 59 05/24/25 17:20 05/24/25 17:20 Orders (Tests/Meds): ED MEDICATIONS Discontinued Medications Generic Name Dose Route Start Last Admin Trade Name Wilberq PRN Reason Stop Dose Admin Dexamethasone Sodium Phosphate 8 mg 05/24/25 16:56 05/24/25 17:19 Dexamethasone 4mg/Ml 1ml Vial IV 05/24/25 16:57 8 mg ONCE ONE Administration Diphenhydramine HCl 25 mg 05/24/25 18:10 05/24/25 18:14 Diphenhydramine 50mg/Ml Vial IV 05/24/25 18:11 25 mg ONCE ONE Administration Droperidol 2.5 mg 05/24/25 16:56 05/24/25 17:19 Droperidol 5mg/2ml Vial IV 05/24/25 16:57 2.5 mg ONCE ONE Administration Sodium Chloride 1,000 mls @ 999 mls/hr 05/24/25 16:56 05/24/25 17:20 Sod Chlor 0.9% 1000ml Bag IV 05/24/25 17:56 999 mls/hr .Q1H1M ONE Administration Ketorolac Tromethamine 30 mg 05/24/25 18:09 05/24/25 18:14 Ketorolac 30mg/Ml Vial IV 05/24/25 18:10 30 mg ONCE ONE Administration Ondansetron HCl 4 mg 05/24/25 16:58 05/24/25 17:19 Ondansetron 4mg/2ml Vial IV 05/24/25 16:59 4 mg ONCE ONE Administration Orphenadrine Citrate 60 mg 05/24/25 16:56 05/24/25 17:20 Orphenadrine Citrate 60mg/2ml Vial IV 05/24/25 16:57 60 mg ONCE ONE Administration ORDERS Category Date Time Status CT head/brain wo con Stat Cat Scan 05/24/25 16:56 Completed CBC [Complete Blood Count Auto Diff] Stat Lab 05/24/25 17:20 Completed Comprehensive Metabolic Panel Stat Lab 05/24/25 17:20 Completed Lipase Stat Lab 05/24/25 17:20 Completed Magnesium Stat Lab 05/24/25 17:20 Completed Medical Decision Narrative: patient is a 40-year-old male presenting to the emergency department for evaluation of headache. Patient is hemodynamically stable and nontoxic- appearing upon arrival, afebrile. Differential diagnosis includes migraine, hypertension, among others. Workup will be conducted with hematologic labs, specific imaging. Initial inventions include crystalloid bolus, analgesics. Initial workup reviewed by me hematologic labs are remarkable for nothing acute. Patient was sleeping and I woke him up to ask him about his headache he says the headache is tolerable at this time. His pressure is back down to normal range. Systolic is in the 130s. I did order Toradol and Benadryl. His nurse went in after I did and he told her that he wanted to leave. She told him to call his and he could leave. Patient is safe for discharge home. He is to return to his PCP for follow-up on his migraines. Critical Care Critical Care Time Critical Care Time: No
[2025-05-24] MEDS: ONDANSETRON 4MG/2ML VIAL 4 MG IV (17:19)
[2025-05-24] MEDS: droPERidol 5MG/2ML VIAL 2.5 MG IV (17:19)
[2025-05-24] MEDS: DEXAMETHASONE 4MG/ML 1ML VIAL 8 MG IV (17:19)
[2025-05-24] MEDS: ORPHENADRINE CITRATE 60MG/2ML VIAL 60 MG IV (17:20)
[2025-05-24] MEDS: 0.9 % SODIUM CHLORIDE 1000ML 1,000 ML 999 ML IV (17:20)
--- NOTE | 2025-05-24 17:22 | ECG_ITS ---
APPROVED REPORT Exam: Resting ECG HR:65 bpm ECG Measurements Heart Rate 65 AXES ID 160 P 52 QRSd 114 QRS 49 QT 390 T 48 QTc 402 Conclusion Normal sinus rhythm without acute ST or T wave changes concerning for ischemia Electronically signed by : Nayely Grullon, 05/25/2025 00:38:51
[2025-05-24 17:30] VITALS: BP 129/88; PULSE 62; O2SAT 99
[2025-05-24 17:36] LABS: Hematocrit 38.6 % (42.0-52.0); Hemoglobin 13.7 g/dL (14.1-18.0); Immature Granulocytes % 0.3 %; Mean Corpuscular HGB Conc 35.5 g/dL (31.8-35.4); Mean Corpuscular Hemoglobin 30.0 pg (27.0-31.2); Mean Corpuscular Volume 84.6 fl (80-94); Nucleated Red Blood Cells % 0 %; Platelet Count 207 K/mm3 (142-424); Red Blood Count 4.56 M/mm3 (4.60-6.20); Red Cell Distribution Width-SD 39.6 fL; White Blood Count 9.1 K/mm3 (4.8-10.8)
[2025-05-24 17:42] LABS: Albumin Level 4.7 g/dl (3.5-5.0); Chloride 104 mmol/L (98-107); Potassium 3.9 mmoL/L (3.5-5.1); Sodium 137 mmol/L (136-145)
[2025-05-24 17:44] LABS: Alanine Aminotransferase 29 U/L (12-78); Aspartate Amino Transferase 41 U/L (17-59); Blood Urea Nitrogen 15 mg/dl (9-20); Creatinine Clearance Estimated 154 mL/min (50-200); Creatinine,Serum 1.00 mg/dl (0.66-1.25); Estimated Glomerular Filt Rate 82 ml/min (>60); GFR (African American) 99 ML/MIN (>60)
[2025-05-24 17:45] LABS: Albumin/Globulin Ratio 1.3 (1.1-1.8); Alkaline Phosphatase 92 U/L (38-126); Anion Gap 10.9 mEq/L (5-15); Bilirubin,Total 0.9 mg/dl (0.2-1.3); Calcium 9.6 mg/dl (8.4-10.2); Carbon Dioxide 26 mmol/L (22.0-30.0); Globulin 3.6 g/dL (1.3-3.2); Glucose 92 mg/dl (74-100); Lipase 59 U/L (23-300); Magnesium 2.0 mg/dl (1.6-2.3); Total Protein,Serum 8.3 g/dl (6.3-8.2)
[2025-05-24 18:00] VITALS: BP 132/78; PULSE 60; O2SAT 96
[2025-05-24] MEDS: KETOROLAC 30MG/ML VIAL 30 MG IV (18:14)
[2025-05-24 18:15] VITALS: BP 146/97; PULSE 70; O2SAT 99
[2025-05-24 18:58] VITALS: BP 146/97; PULSE 81; RESP 20; TEMP 37.2; O2SAT 98
== END 2025-05-24 19:00 | disposition home or self-care (01) ==
PROVIDERS: Nurse Practitioner; Emergency Provider Student in an Organized Health Care Education/Training Program
DX: G43.909 Migraine, unspecified, not intractable, without status migrainosus (principal); G47.33 Obstructive sleep apnea (adult) (pediatric); I10 Essential (primary) hypertension; J45.909 Unspecified asthma, uncomplicated
CPT/HCPCS: 70450; 80053; 83690; 83735; 85025; 93005; 96361; 96374; 96375; 99285; J1100; J1200; J1790; J1885; J2360; J2405; J7030

== ENCOUNTER 2025-06-30 13:57 | Outpatient (CLI) | payer OTHER, SELFPAY ==
--- OUTSIDE RECORDS SUMMARY | 2025-05-11 07:13 | XMS_ITS | Encounter Summary ---
Author Organization [facility] Address [address] [place] [address] Care Team Providers Care Glacing Machine Tender Name Role Phone Alejandra Guerra Primary Care Provider [phone] Reason for Referral * Imaging (Routine) - Closed Specialty Diagnoses / Procedures Referred By Jv koenig Referred To Contact Radiology Diagnoses Hepatitis B infection without delta agent without hepatic coma, unspecified chronicity Procedures US Liver Screen Adriana Mendez APRN [address] [address] Phone: tel: fax: Referral ID Status Reason Start Date Expiration Date Visits Re quested Visits Authorized [id number] Closed 10/20/2024 04/21/2026 1 1 Reason for Visit * Imaging (Routine) - Closed Specialty Diagnoses / Procedures Referred By Jv koenig Referred To Contact Radiology Diagnoses Hepatitis B infection without delta agent without hepatic coma, unspecified chronicity Procedures US Liver Screen Adriana Mendez APRN [address] [facility] [address] [place] [phone] Phone: tel: fax: Referral ID Status Reason Start Date Expiration Date Visits Re quested Visits Authorized [id number] Closed 10/20/2024 04/21/2026 1 1 Encounter Details Date Type Department Care Team (Latest Contact Info) Description 05/11/2025 7:13 AM EDT - 05/11/2025 11:59 PM EDT Hospital Encounter [facility] Ultrasound [address] [place] [address] Hepatitis B infection without delta [...] Care Team (Late st Contact Info) Description 11/11/2025 7:45 AM EST Appointment [facility] Ultrasound [address] [place] [address] 11/18/2025 1:00 PM EST [facility] Medicine [facility] [address] [place] [address] Doron Marquez PA [address] [place] [address] documented as of this encounter Procedures Procedure [...] are based on Ultrasound LI-RADS version 2017. [email or web address] CRITICAL RESULT: No. COMMUNICATION: Per [...] fluid. Negative sonographic Cristobal sign per performing eyeglass assembler. Common Duct: 3 mm Spleen: Enlarged spleen [...] recommendations are based on UltrasoundLI-RADS version 2017. [email or web address] CRITICAL RESULT: No. COMMUNICATION: Per [...] documented as of this encounter Care Teams Glacing Machine Tender Relationship Specialty Start Date End Date Alejandra Guerra PA [address] [facility] [place] [address] PCP - General 03/16/21 documented as of this encounter
--- OUTSIDE RECORDS SUMMARY | 2025-05-11 14:00 | XMS_ITS | Encounter Summary ---
Author Organization [facility] Address [address] [place] [address] Care Team Providers Care Shipping And Receiving Assistant Name Role Phone CharlieAlejandra Ema PIRES Primary Care Provider [phone] Reason for Referral * Consultation (Routine) - Pending Review Specialty Diagnoses / Procedures Referred By Jv koenig Referred To Contact Diagnoses Hepatitis B infection without delta agent without hepatic coma, unspecified chronicity Metabolic dysfunction-associated steatotic liver disease (MASLD) Adriana Mendez APRN [address] [address] Phone: tel: fax: Referral ID Status Reason Start Date Expiration Date V isits Requested Visits Authorized [id number] Pending Review 05/11/2025 11/10/2026 1 1 * Imaging (Routine) - Pending Review Specialty Diagnoses / Procedures Referred By Jv koenig Referred To Contact Radiology Diagnoses Hepatitis B infection without delta agent without hepatic coma, unspecified chronicity Metabolic dysfunction-associated steatotic liver disease (MASLD) Procedures US Liver Screen Adriana Mendez APRN [address] [facility] [address] [place] [address] Phone: tel: fax: Referral ID Status Reason Start Date Expiration Date V isits Requested Visits Authorized [id number] Pending Review 05/11/2025 11/10/2026 1 1 Reason for Visit * Reason Comments Hepatitis B infection without delta agen t without hepatic c Encounter Details Date Type Department Care Team (Late st Contact Info) Description 05/11/2025 2:00 PM EDT Office Visit [facility] Medicine Specialties [address] [place] [address] Adriana Mendez APRN [address] [place] [address] Hepatitis B infection without delta [...] Info) Description 11/11/2025 7:45 AM EST Appointment [facility] Ultrasound [address] [place] [address] 11/18/2025 1:00 PM EST Office Visit [facility] Medicine Specialties [address] [place] [address] Doorn Marquez PA [address] [place] [address] Scheduled Orders Name Type Priority Associated Diagnoses [...] <2.3 <10.0 ng/mL 05/11/2025 4:22 PM EDT [facility] Blood Venous blood specimen / Unknown Venipuncture / Unknown 05/11/2025 2:32 PM EDT 05/11/2025 2:32 PM EDT Narrative [facility] - 05/11/2025 4:22 PM EDT Performed by Tere electrochemiluminescent immunoassay which is traceable to the 1st AFP IRP WHO Reference standard 72/255. Results obtained with different test methods or kits cannot be used interchangeably. us Adriana Mendez APRN LAB BLOOD ORDERABLES Final Result [facility] [address] [place] [address] * Hepatitis B Virus (HBV) Quantitative PCR (05/11/2025 2:32 PM EDT) Hepatitis B Virus (HBV) Quantitative Interpretation Not Detected Not Detected 05/13/2025 10:19 AM EDT [facility] Blood Venous blood specimen / Unknown Venipuncture / Unknown 05/11/2025 2:32 PM EDT 05/11/2025 2:32 PM EDT Narrative [facility] - 05/13/2025 10:19 AM EDT [...] assay is FDA approved for clinical use. us Adriana Mendez APRN LAB BLOOD ORDERABLES Final Result [facility] [address] [place] [address] * Prothrombin Time/INR (05/11/2025 2:32 PM EDT) Pathologist [facility] Prothrombin Time 13.4 12.0 - 14.3 sec LAB COAGULATION METHOD 05/11/2025 4:36 PM EDT [facility] INR 1.0 0.9 - 1.1 LAB COAGULATION METHOD 05/11/2025 4:36 PM EDT [facility] Blood Venous blood specimen / Unknown Venipuncture / Unknown 05/11/2025 2:32 PM EDT 05/11/2025 2:32 PM EDT Narrative [facility] - 05/11/2025 4:36 PM EDT OPTIMAL INR RANGES FOR PATIENT ON ORAL ANTICOAGULANT THERAPY Prevention of venous thromboembolism INR 2.0 to 3.0 In patients with heart disease: Atrial fibrillation INR 2.0 to 3.0 Valvular heart disease INR 2.0 to 3.0 Tissue heart valves INR 2.0 to 3.0 Mechanical prosthetic valves INR 2.5 to 3.5 Prevention of recurrent IA INR 2.5 to 3.5 us Adriana Mendez STATEMENT CLERKS MANAGER LAB BLOOD ORDERABLES Final Result [facility] [address] [place] [address] * CBC W/O Differential (05/11/2025 2:32 PM EDT) WBC Count 7.49 3.70 - 10.30 10*3/uL LAB HEMATOLOGY METHOD 05/11/2025 4:31 PM EDT [facility] RBC Count 4.96 4.60 - 6.10 10*6/uL LAB HEMATOLOGY METHOD 05/11/2025 4:31 PM EDT [facility] HGB 14.9 13.7 - 17.5 g/dL LAB HEMATOLOGY METHOD 05/11/2025 4:31 PM EDT [facility] HCT 43.1 40.0 - 51.0 % LAB HEMATOLOGY METHOD 05/11/2025 4:31 PM EDT [facility] Platelet Count 209 155 - 369 10*3/uL LAB HEMATOLOGY METHOD 05/11/2025 4:31 PM EDT [facility] MCV 87 79 - 98 fL LAB HEMATOLOGY METHOD 05/11/2025 4:31 PM EDT [facility] MCH 30.0 26.0 - 32.0 pg LAB HEMATOLOGY METHOD 05/11/2025 4:31 PM EDT [facility] MCHC 34.6 30.7 - 35.5 g/dL LAB HEMATOLOGY METHOD 05/11/2025 4:31 PM EDT [facility] RDW 13.1 11.5 - 14.5 % LAB HEMATOLOGY METHOD 05/11/2025 4:31 PM EDT [facility] MPV 10.9 8.8 - 12.5 fL LAB HEMATOLOGY METHOD 05/11/2025 4:31 PM EDT [facility] nRBC 0.0 <=0.0 per 100 WBCs LAB HEMATOLOGY METHOD 05/11/2025 4:31 PM EDT [facility] Blood Venous blood specimen / Unknown Venipuncture / Unknown 05/11/2025 2:32 PM EDT 05/11/2025 2:32 PM EDT us Adriana Mendez STATEMENT CLERKS MANAGER LAB BLOOD ORDERABLES Final Result [facility] [address] [place] [address] * (ABNORMAL) Comprehensive Metabolic Panel, Plasma (05/11/2025 2:32 PM EDT) Glucose, Plasma 88 74 - 99 mg/dL 05/11/2025 4:18 PM EDT [facility] BUN, Plasma 13 7 - 21 mg/dL 05/11/2025 4:18 PM EDT [facility] Creatinine, Plasma 1.02 0.70 - 1.20 mg/dL 05/11/2025 4:18 PM EDT [facility] BUN/Creatinine Ratio 13 05/11/2025 4:18 PM EDT [facility] Sodium, Plasma 139 136 - 145 mmol/L 05/11/2025 4:18 PM EDT [facility] Potassium, Plasma 4.1 3.6 - 4.9 mmol/L 05/11/2025 4:18 PM EDT [facility] Chloride, Plasma 102 97 - 107 mmol/L 05/11/2025 4:18 PM EDT [facility] CO2, Plasma 24 22 - 29 mmol/L 05/11/2025 4:18 PM EDT [facility] Anion Gap 13 6 - 16 mmol/L 05/11/2025 4:18 PM EDT [facility] Total Calcium, Plasma 9.5 8.9 - 10.2 mg/dL 05/11/2025 4:18 PM EDT [facility] Total Protein 8.0(H) 6.3 - 7.9 g/dL 05/11/2025 4:18 PM EDT [facility] Albumin, Plasma 4.4 3.5 - 5.2 g/dL 05/11/2025 4:18 PM EDT [facility] AST, Plasma 23 10 - 50 U/L 05/11/2025 4:18 PM EDT [facility] ALT, Plasma 24 10 - 50 U/L 05/11/2025 4:18 PM EDT [facility] Alkaline Phosphatase, Plasma 121(H) 40 - 115 U/L 05/11/2025 4:18 PM EDT [facility] Total Bilirubin, Plasma 0.4 0.2 - 1.1 mg/dL 05/11/2025 4:18 PM EDT [facility] eGFRcr 94.1 mL/min/1.7 3m*2 05/11/2025 4:18 PM EDT [facility] Comment:Reported eGFRcr in m L/min/1.73m2 is based the CKD-EPI 2020 equation that does not use a race coefficient. Blood Venous blood specimen / Unknown Venipuncture / Unknown 05/11/2025 2:32 PM EDT 05/11/2025 2:32 PM EDT Adriana Mendez APRN LAB BLOOD ORDERABLES Final Result [facility] [address] [place] [address] documented in this encounter Visit Diagnoses Diagnosis [...] documented as of this encounter Care Teams Shipping And Receiving Assistant Relationship Specialty Start Date End Date Alejandra Guerra PA [address] [facility] [place] [address] PCP - General 03/16/21 documented as of this encounter
--- NOTE | 2025-06-30 14:00 | MR_ITS ---
FINAL REPORT TECHNIQUE: Multiplanar and multisequence imaging of the brain was obtained before and after contrast administration. CLINICAL HISTORY: New onset severe headache, change in pattern LEFT SIDED MIGRANES RINGING IN RIGHT EAR BRAIN FOG LIGHT SENSITIVITY 22ML PROHANCE COMPARISON: 07/13/2024 FINDINGS: Brain parenchymal: There is no mass effect or midline shift. There are no areas of abnormal signal intensity.The cerebellum and brainstem are without acute abnormality. Ventricles: The ventricles are symmetric in size and configuration without hydrocephalus. Extra-axial spaces: No extra-axial fluid collections. Diffusion imaging: No areas of restricted diffusion to suggest acute infarct. Flow voids: Flow voids within the major intracranial vessels are preserved. Soft tissues: There is a mucous retention cyst or polyp in the left maxillary sinus. There is mucoperiosteal thickening in the bilateral maxillary sinuses, improved. Fluid is seen in the right mastoid air cells. Post contrast imaging: No abnormal enhancement. IMPRESSION: No acute intracranial abnormality and no pathologic contrast enhancement. Fluid in the right mastoid air cells. Reviewed, Interpreted and Dictated by Kayli Bowers MD Transcribed by Marcia Ch Authenticated and [facility]
--- OUTSIDE RECORDS SUMMARY | 2025-06-30 14:06 | XMS_ITS | Encounter Summary ---
Author Organization [facility] Address [address] [place] [address] Care Team Providers Care Field Crop Farming Supervisor Name Role Phone Alejandra Guerra Primary Care Provider [phone] Encounter Details Date Type Department Care Team [...] Info) Description 11/11/2025 7:45 AM EST Appointment [facility] Ultrasound [address] [place] [address] 11/18/2025 1:00 PM EST Office Visit [facility] [address] [place] [address] Doron Marquez PA [address] [place] [address] documented as of this encounter [...] documented as of this encounter Care Teams Field Crop Farming Supervisor Relationship Specialty Start Date End Date Alejandra Guerra PA [address] [place] [address] PCP - General 03/16/21 documented as of this encounter
--- OUTSIDE RECORDS SUMMARY | 2025-06-30 14:06 | XMS_ITS | Encounter Summary ---
Author Organization [facility] Address [address] [place] [address] Care Team Providers Care Wholesale Agronomist Name Role Phone Charlie Alejandra Ema PIRES Primary Care Provider [phone] Encounter Details Date Type Department Care Team (Late st Contact Info) Description 06/23/2025 Clinical Support [facility] [address] [place] [address] [place] [address] Social History Tobacco Use Types [...] on file documented as of this encounter Miscellaneous Notes * Clinician Note - Nataly Eng RD - 06/23/2025 12:06 PM EDT Nutrition note 06/23/25 12:05p Pt had followup nutrition consult scheduled with RD today at 11:00a, but pt did not attend this appt. RD avail for nutrition consultation prn. Nataly Eng RD,LD, MS documented in this encounter Plan of Treatment Upcoming Encounters Date Type Department Care Team (Late st Contact Info) Description 11/11/2025 7:45 AM EST Appointment [facility] Ultrasound [address] [place] [address] 11/18/2025 1:00 PM EST Office Visit [facility] [address] [place] [address] Doron Marquez PA [address] [place] [address] documented as of this encounter Visit Diagnoses Not on filedocumented in this encounter Additional Health Concerns Assessment Noted Time PHQ-9 Depression Total Score: 1 05/11/20 1:49 PM EDT A fall risk assessment has been complete d for the patient 05/11/2025 1:50 PM EDT A Body Mass Index follow-up plan has been documented for the patient 06/23/2025 12:07 PM EDT documented as of this encounter Care Teams Wholesale Agronomist Relationship Specialty Start Date End Date Alejandra Guerra PA [address] [place] [address] PCP - General 03/16/21 documented as of this encounter
--- OUTSIDE RECORDS SUMMARY | 2025-06-30 14:06 | XMS_ITS | Encounter Summary ---
Author Organization [facility] Address [address] [place] [address] Care Team Providers Care Buyer Tobacco Head Name Role Phone Charlie Alejandra Ema PIRES Primary Care Provider [phone] Encounter Details Date Type Department Care Team (Late st Contact Info) Description 05/12/2025 Results Follow-Up [facility] [address] [place] [address] Adriana Mendez D, ACCOUNTS PAYABLE ANALYST [address] [place] [address] Social History Tobacco Use Types [...] Info) Description 11/11/2025 7:45 AM EST Appointment [facility] Ultrasound [address] [place] [address] 11/18/2025 1:00 PM EST Office Visit [facility] [address], [address] [place] [address] Doron Marquez PA [address] [place] [address] documented as of this encounter [...] documented as of this encounter Care Teams Buyer Tobacco Head Relationship Specialty Start Date End Date Alejandra Guerra PA [address] [place] [address] PCP - General 03/16/21 documented as of this encounter
--- OUTSIDE RECORDS SUMMARY | 2025-06-30 14:06 | XMS_ITS | Encounter Summary ---
Author Organization [facility] Address [address] [place] [address] Care Team Providers Care Experience Designer Name Role Phone Alejandra Guerra Primary Care Provider Reason for Referral * Consultation (Routine) - Closed Specialty Diagnoses / Procedures Referred By Jv koenig Referred To Contact Sports Medicine Diagnoses Right knee pain, unspecified chronicity [facility] [address] [place] [address] Carlos Guerra MD [address] [address] Phone: tel: fax: Referral ID Status Reason Start Date Expiration Date V isits Requested Visits Authorized [id number] Closed Specialty Services Required 05/15/2022 11/14/2023 1 1 Encounter Details Date Type Department Care Team (Late st Contact Info) Description 05/15/2022 [facility] [address] [place] [address] Keron Shahid Right knee pain, unspecified chronicity [...] Recorded In the last 10 days, have trae browning been in contact with someone who was confirmed or suspected to have Coronavirus/COVID-19? No / Unsure 05/10/2022 6:54 AM EDT documented as of this encounter Plan of Treatment Upcoming Encounters Date Type Department Care Team (Late st Contact Info) Description 11/11/2025 7:45 AM EST Appointment [facility] Ultrasound [address] [place] [address] 11/18/2025 1:00 PM EST Office Visit [facility] [address] [place] [address] Doron Marquez PA [address] [place] [address] Scheduled Referrals Name Type Priority Associated Diagnoses [...] documented as of this encounter Care Teams Experience Designer Relationship Specialty Start Date End Date Alejandra Guerra PA [address] [place] [address] PCP - General 03/16/21 documented as of this encounter
--- OUTSIDE RECORDS SUMMARY | 2025-06-30 14:06 | XMS_ITS | Clinical Summary ---
Author Organization [facility] Address [address] [place] [address] Care Team Providers Care Margarine Churn Operator Name Role Phone Charlie [place] Ema PIRES Primary Care Provider [phone] Allergies Active Allergy Reactions Criticality Noted Date Comments Hydrocodone Other - please docum ent in the comment field Low 05/04/2019 Medications fluticasone-vilant alma rosa (Breo Ellipta) 200-25 MCG/INH inhaler Take 1 puff by mouth 1 (one) time each day. 9 Active albuterol 108 (90 Base) MCG/ACT inhaler Inhale 1-2 puffs. Every 4 to 6 hours as needed 9 Active metoprolol succinate XL (Toprol-XL) 100 MG 24 hr tablet Take 1 tablet (100 mg) by mouth 1 (one) time each day. Do not crush or chew. Active metoprolol succinate XL (Toprol-XL) 50 MG 24 hr tablet Take 1 tablet (50 mg) by mouth 1 (one) time each day. 2 Active omeprazole (PriLOSEC) [address] capsule Take 1 capsule (40 mg) by mouth 1 (one) time each day. 4 Active Qulipta 60 MG tablet Take 60 mg by mouth 1 (one) time each day. 4 Active Trelegy Ellipta 200-62.5-25 MCG/ACT aerosol powder Take 1 puff by mouth. 3 Active Nurtec 75 MG orally disintegrating tablet DISSOLVE 1 TABLET ON THE TONGUE 1 TIME NEEDED FOR MIGRAINE HEADACHE Active entecavir (Baraclude) 0.5 MG tabletIndications: Hepatitis B infection without delta agent without hepatic coma, unspecified chronicity Take 1 tablet by mouth daily. Pls stop tenofovir once your start entecavir. 90 tablet 3 5 05/11/20 Active Active Problems Problem Noted Date Diagnosed Date Injury of right knee 08/06/2022 Acute pain of right knee 05/28/2022 Degeneration, articular cartilage, patella, righ t 05/28/2022 Effusion of right knee 05/28/2022 Obesity (BMI 30-39.9) 05/15/2022 Hepatitis B infection withou t delta agent without hepatic coma 11/15/2021 Gastroesophageal reflux disease 11/15/2021 Encounters Date Type Department Care Team Description 06/23/2025 Clinical Support [facility]ties [address] [place] [address] Nataly Eng, HORTENCIA 05/12/2025 Results Follow-Up [facility] [address] [place] [address] Adriana Mendez APRN 05/11/2025 2:00 PM EDT Office Visit [facility] [address] [place] [address] Adriana Mendez, GREENHOUSE STAFF Hepatitis B infection without delta agent without hepatic coma, unspecified chronicity (Primary Dx); 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 [place] [address] Hepatitis B infection without delta agent without [...] Info) Description 11/11/2025 7:45 AM EST Appointment [facility] Ul[facility]ound [address] [place] [address] 11/18/2025 1:00 PM EST Office Visit [facility] [address] [place] [address] Doron Marquez, PA [address] [place] [address] Health Maintenance Due Date Last Done Comments [facility]-HIV Screening 1983 [facility]-/Child/Adol SDOH Screenings 1983 [facility]-Varicella Vaccines (1 of 2 - 13+ 2-dose series) 06/24/1996 [facility]- SDOH Screenings 2001 [facility]-Adult SDOH Screenings 2001 [facility]-DTaP,Tdap,and Td Vaccines (1 - Tdap) 2002 [facility]-Hepatitis B Vaccines (1 of 3 - 19+ 3-dose series) 2002 05/11/2025, 05/11/2025, 05/11/2025, Additional history exists [facility]-Pneumococcal Vaccine: Pediatrics (0 to 5 Years) and At-Risk Patients (6 to 49 Years) (1 of 2 - PCV) 2002 HPV Vaccines (1 - 3-dose SCDM series) 2010 [id number] Vaccine (1 - 2023- season) 2024 [facility]-Influenza Vaccine (#1) 2025 [facility]-Depression Screening 05/11/2026 05/11/2025, 0707/2025 [facility]-Zoster Vaccines (1 of 2) 2033 [facility]-Hepatitis A Vaccines Completed 019, 09/27/2015, 09/27/2015 [facility]-Hepatitis C Screening Completed 2018, 06/07/2019, 05/04/2019, Additional history exists [facility]-Obesity Intervention Completed 025, 05/11/2025, 12/23/2024, Additional history exists [facility]-HIB Vaccines Aged Out [...] <2.3 <10.0 ng/mL 05/11/2025 4:22 PM EDT [facility] Blood Venous blood specimen / Unknown Venipuncture / Unknown 05/11/2025 2:32 PM EDT 05/11/2025 2:32 PM EDT Narrative [facility] - 05/11/2025 4:22 PM EDT Performed by Tere electrochemiluminescent immunoassay which is traceable to the [address] [place] [address] IRP WHO Reference standard 72/255. Results obtained with different test methods or kits cannot be used interchangeably. Adriana Mendez APRN LAB BLOOD ORDERABLES Final Result Performing Organization Address [facility] de Phone Number [facility] [address] [place] [address] * Hepatitis B Virus (HBV) Quantitative PCR (05/11/2025 2:32 PM EDT) Hepatitis B Virus (HBV) Quantitative Interpretation Not Detected Not Detected 05/13/2025 10:19 AM EDT [facility] Blood Venous blood specimen / Unknown Venipuncture / Unknown 05/11/2025 2:32 PM EDT 05/11/2025 2:32 PM EDT Narrative [facility] - 05/13/2025 10:19 AM EDT The [...] FDA approved for clinical use. Adriana Mendez APRN LAB BLOOD ORDERABLES Final Result Performing Organization Address [facility] Co de Phone Number [facility] [address] [place] [address] * Prothrombin Time/INR (05/11/2025 2:32 PM EDT) Prothrombin Time 13.4 12.0 - 14.3 sec LAB COAGULATION METHOD 05/11/2025 4:36 PM EDT [facility] INR 1.0 0.9 - 1.1 LAB COAGULATION METHOD 05/11/2025 4:36 PM EDT [facility] Blood Venous blood specimen / Unknown Venipuncture / Unknown 05/11/2025 2:32 PM EDT 05/11/2025 2:32 PM EDT Narrative [facility] - 05/11/2025 4:36 PM EDT OPTIMAL INR RANGES FOR PATIENT ON ORAL ANTICOAGULANT THERAPY Prevention of venous thromboembolism INR 2.0 to 3.0 In patients with heart disease: Atrial fibrillation INR 2.0 to 3.0 Valvular heart disease INR 2.0 to 3.0 Tissue heart valves INR 2.0 to 3.0 Mechanical prosthetic valves INR 2.5 to 3.5 Prevention of recurrent MT INR 2.5 to 3.5 us Adriana Mendez GREENHOUSE STAFF LAB BLOOD ORDERABLES Final Result [facility] [address] [place] [address] * CBC W/O Differential (05/11/2025 2:32 PM EDT) WBC Count 7.49 3.70 - 10.30 10*3/uL LAB HEMATOLOGY METHOD 05/11/2025 4:31 PM EDT [facility] RBC Count 4.96 4.60 - 6.10 10*6/uL LAB HEMATOLOGY METHOD 05/11/2025 4:31 PM EDT [facility] HGB 14.9 13.7 - 17.5 g/dL LAB HEMATOLOGY METHOD 05/11/2025 4:31 PM EDT [facility] HCT 43.1 40.0 - 51.0 % LAB HEMATOLOGY METHOD 05/11/2025 4:31 PM EDT [facility] Platelet Count 209 155 - 369 10*3/uL LAB HEMATOLOGY METHOD 05/11/2025 4:31 PM EDT [facility] MCV 87 79 - 98 fL LAB HEMATOLOGY METHOD 05/11/2025 4:31 PM EDT [facility] MCH 30.0 26.0 - 32.0 pg LAB HEMATOLOGY METHOD 05/11/2025 4:31 PM EDT [facility] MCHC 34.6 30.7 - 35.5 g/dL LAB HEMATOLOGY METHOD 05/11/2025 4:31 PM EDT [facility] RDW 13.1 11.5 - 14.5 % LAB HEMATOLOGY METHOD 05/11/2025 4:31 PM EDT [facility] MPV 10.9 8.8 - 12.5 fL LAB HEMATOLOGY METHOD 05/11/2025 4:31 PM EDT [facility] nRBC 0.0 <=0.0 per 100 WBCs LAB HEMATOLOGY METHOD 05/11/2025 4:31 PM EDT [facility] Blood Venous blood specimen / Unknown Venipuncture / Unknown 05/11/2025 2:32 PM EDT 05/11/2025 2:32 PM EDT us Adriana Mendez GREENHOUSE STAFF LAB BLOOD ORDERABLES Final Result [facility] [address] [place] [address] * (ABNORMAL) Comprehensive Metabolic Panel, Plasma (05/11/2025 2:32 PM EDT) Glucose, Plasma 88 74 - 99 mg/dL 05/11/2025 4:18 PM EDT [facility] BUN, Plasma 13 7 - 21 mg/dL 05/11/2025 4:18 PM EDT [facility] Creatinine, Plasma 1.02 0.70 - 1.20 mg/dL 05/11/2025 4:18 PM EDT [facility] BUN/Creatinine Ratio 13 05/11/2025 4:18 PM EDT [facility] Sodium, Plasma 139 136 - 145 mmol/L 05/11/2025 4:18 PM EDT [facility] Potassium, Plasma 4.1 3.6 - 4.9 mmol/L 05/11/2025 4:18 PM EDT [facility] Chloride, Plasma 102 97 - 107 mmol/L 05/11/2025 4:18 PM EDT [facility] CO2, Plasma 24 22 - 29 mmol/L 05/11/2025 4:18 PM EDT [facility] Anion Gap 13 6 - 16 mmol/L 05/11/2025 4:18 PM EDT [facility] Total Calcium, Plasma 9.5 8.9 - 10.2 mg/dL 05/11/2025 4:18 PM EDT [facility] Total Protein 8.0(H) 6.3 - 7.9 g/dL 05/11/2025 4:18 PM EDT [facility] Albumin, Plasma 4.4 3.5 - 5.2 g/dL 05/11/2025 4:18 PM EDT [facility] AST, Plasma 23 10 - 50 U/L 05/11/2025 4:18 PM EDT [facility] ALT, Plasma 24 10 - 50 U/L 05/11/2025 4:18 PM EDT [facility] Alkaline Phosphatase, Plasma 121(H) 40 - 115 U/L 05/11/2025 4:18 PM EDT [facility] Total Bilirubin, Plasma 0.4 0.2 - 1.1 mg/dL 05/11/2025 4:18 PM EDT [facility] eGFRcr 94.1 mL/min/1.7 3m*2 05/11/2025 4:18 PM EDT [facility] Comment:Reported eGFRcr in m L/min/1.73m2 is based the CKD-EPI 2020 equation that does not use a race coefficient. Blood Venous blood specimen / Unknown Venipuncture / Unknown 05/11/2025 2:32 PM EDT 05/11/2025 2:32 PM EDT us Adriana Mendez GREENHOUSE STAFF LAB BLOOD ORDERABLES Final Result [facility] [address] [place] [address] * US Liver Screen (05/11/2025 7:53 AM [...] are based on Ultrasound LI-RADS version 2017. [email or web address] CRITICAL RESULT: No. COMMUNICATION: Per [...] fluid. Negative sonographic Cristobal sign per performing lumber loader. Common Duct: 3 mm Spleen: Enlarged spleen [...] recommendations are based on UltrasoundLI-RADS version 2017. [email or web address] CRITICAL RESULT: No. COMMUNICATION: Per this written report. Drafted by Huy Rodriguez MD on 05/11/2025 8:05 AM Final report signed by Huy Rodriguez MD on 05/11/2025 8:12 AM us Adriana Mendez APRN IMG US PROCEDURES Final Re sult * [...] RNA NOT DETECTED HCV RNA NOT DETECTED us Kenna Gross APRN LAB BLOOD ORDERABLES Final Re sult SUNQUEST from Last 3 Months or Most Recently Relevant to Health Maintenance Insurance [facility] [address] [place] [address] [place] [address] [facility] [place] [address] Care Teams Margarine Churn Operator Relationship Specialty Start Date End Date Alejandra Guerra PA [address] [place] [address] PCP - General 03/16/21
[2025-06-30 14:28] LABS: Blood Urea Nitrogen 12 mg/dl (9-20); Creatinine,Serum 1.00 mg/dl (0.66-1.25); Estimated Glomerular Filt Rate 82 ml/min (>60); GFR (African American) 99 ML/MIN (>60)
[2025-06-30] MEDS: SODIUM CHLORIDE 0.9% 10ML SYR (RAD ONLY) 10 ML IV (15:05)
[2025-06-30] MEDS: GADOTERIDOL INJ 10ML SYRINGE 2 ML IV (15:05)
[2025-06-30] MEDS: GADOTERIDOL INJ 20ML SYRINGE 20 ML IV (15:05)
== END 2025-06-30 23:59 | disposition home or self-care (01) ==
LOC: RAD 13:58
PROVIDERS: PCP Family Medicine; Visit Provider Specialist
DX: R51.9 Headache, unspecified (principal); J34.1 Cyst and mucocele of nose and nasal sinus
CPT/HCPCS: 36415; 70553; 82565; 84520; A9576

== ENCOUNTER 2025-09-26 15:10 | Outpatient (CLI) | payer OTHER, SELFPAY ==
[2025-09-26 20:39] LABS: Coronavirus 19, PCR Not Detected (NotDetected); Influenza A, PCR Not Detected (NotDetected); Influenza B, PCR Not Detected (NotDetected)
--- OUTSIDE RECORDS SUMMARY | 2025-09-27 10:48 | XMS_ITS | Clinical Summary ---
Author Organization [facility] Address [address] [place] [address] Care Team Providers Care Supervisor Body Assembly Name Role Phone Charlie [place] Ema PIRES Primary Care Provider [phone] Allergies Active Allergy Reactions Criticality Noted Date [...] TONGUE 1 TIME NEEDED FOR MIGRAINE HEADACHE 5 Active entecavir (Baraclude) 0.5 MG tabletIndications: Hepatitis B infection without delta agent without hepatic coma, unspecified chronicity Take 1 tablet by mouth daily. Pls stop tenofovir once your start entecavir. 90 tablet 3 5 05/11/20 Active Active Problems Problem Noted Date Diagnosed Date Injury of right knee 08/06/2022 Degeneration, articular cartilage, patella, righ t 05/28/2022 Effusion of right knee 05/28/2022 Obesity (BMI 30-39.9) 05/15/2022 Hepatitis B infection withou t delta agent without hepatic coma 11/15/2021 Gastroesophageal reflux disease 11/15/2021 Resolved Problems Problem Noted Date Diagnosed Date Resolved Date Acute pain of right knee 05/28/2022 Immunizations Immunization Administration Dates Next Due Hep [...] Info) Description 11/11/2025 7:45 AM EST Appointment [facility] Ultrasound [address] [place] [address] 11/18/2025 1:00 PM EST Office Visit [facility] [address] [place] [address] Doron Marquez PA [address] [place] [address] Health Maintenance Due Date Last Done Comments [facility]-HIV Screening 1983 [facility]-Infant/Child/Adol SDOH Screenings 1983 [facility]-Varicella Vaccines (1 of [...] Vaccines (1 - 3-dose SCDM series) 2010 HVF-DMPBO-30 Vaccine ( season) 2025 [facility]-Influenza Vaccine (#1) 2025 [facility]-Depression Screening 05/11/2026 [...] Procedure Name Priority Date/Time Associated Diagnosis Comments HEPATITIS C VIRUS (HCV) QUANTITATIVE PCR Routine 07/06/2019 12:51 PM EDT from Last 3 Months or Most Recently Relevant to Health Maintenance Results * Hepatitis C Virus (HCV) Quantitative PCR (07/06/2019 12:51 PM EDT) Pathologist [facility] Hepatitis C Virus (HCV) Quantitative Viral Load [...] NOT DETECTED HCV RNA NOT DETECTED Kenna Dunn RADHA LAB BLOOD ORDERABLES Final Res ult SUNQUEST from Last 3 Months or Most Recently Relevant to Health Maintenance Insurance [facility] [address] [place] [id number] [place] [address] [facility] [place] [address] Care Teams Supervisor Body Assembly Relationship Specialty Start Date End Date Alejandra Guerra PA [address] [place] [address] PCP - General 03/16/21
--- OUTSIDE RECORDS SUMMARY | 2025-09-27 10:48 | XMS_ITS | Encounter Summary ---
Author Organization [facility] Address [address] [place] [address] Care Team Providers Care Instructional Technology Instructor Name Role Phone Alejandra Guerra Primary Care Provider [phone] Reason for Referral * Consultation (Routine) - Closed Specialty Diagnoses / Procedures Referred By Jv koenig Referred To Contact Sports Medicine Diagnoses Right knee pain, unspecified chronicity [facility] [address] [place] [address] Carlos Guerra MD [address] [address] Phone: tel: fax: Referral ID Status Reason Start Date Expiration Date V isits Requested Visits Authorized [id number] Closed Specialty Services Required 05/15/2022 11/14/2023 1 1 Encounter Details Date Type Department Care Team (Late st Contact Info) Description 05/15/2022 [facility] [address] [place] [address] Keron Shahid Right knee pain, unspecified chronicity [...] Description 11/11/2025 7:45 AM EST Appointment [facility] Ultrasound [address] [place] [address] 11/18/2025 1:00 PM EST Office Visit [facility] [address] [place] [address] Doron Marquez PA [address] [place] [address] Scheduled Referrals Name Type Priority [...] documented as of this encounter Care Teams Instructional Technology Instructor Relationship Specialty Start Date End Date Alejandra Guerra PA [address] [place] [address] PCP - General 03/16/21 documented as of this encounter
== END 2025-09-26 23:59 ==
LOC: LAB.DROPOF 09-27 10:40
PROVIDERS: PCP Family Medicine; Visit Provider Nurse Practitioner
DX: J06.9 Acute upper respiratory infection, unspecified (principal)
CPT/HCPCS: 87631